=== PATIENT | male | born 1950 | race Caucasian/White ===

== ENCOUNTER → 2018-08-09 09:39 | Outpatient (CLI) | payer MEDICARE, SELFPAY ==
--- NOTE | 2018-08-09 09:40 | DI.US.S_ITS ---
PROCEDURE: US SCROTUM INDICATIONS: scrotal swelling and pain. scrotal cellulitis TECHNIQUE: Real-time scanning was performed of the scrotum and testicles, with image documentation. Color and pulse Doppler interrogation was performed of both testicles. COMPARISON: None. FINDINGS: Right: Testicle is normal in size at upper 6 x 2.2 x 3.3 cm, and homogenous in echotexture. Epididymis is normal in overall size and morphology. No hydrocele or varicoceles. Overlying scrotal skin is normal in thickness. Left: Testicle is normal in size at 4.7 x 1.6 x 2.7 cm, and homogeneous in echotexture. Epididymis is not visualized on this study. Large fluid echogenicity structure is noted in left scrotum elevating left testes anteriorly and measures approximately 11.3 x 5.3 x 7.2 cm in size which could represent large amount of hydrocele versus large spermatocele. Overlying scrotal skin is normal in thickness. Doppler: Color and pulse Doppler demonstrate normal and symmetric arterial flow in both testicles. IMPRESSION: 1. Normal appearing bilateral testes. No evidence of testicular torsion. 2. Large left hydrocele versus spermatocele in left scrotum as above. No significant scrotal wall thickening. No right-sided hydrocele. Dictated by: Aj Lugo M.D. on 08/09/2018 at 11:17 Approved by: Aj Lugo M.D. on 08/09/2018 at 11:21
== END ==
PROVIDERS: PCP Family Medicine; Visit Provider Physician Assistant
DX: N50.89 Other specified disorders of the male genital organs (principal); N49.2 Inflammatory disorders of scrotum
CPT/HCPCS: 76870

== ENCOUNTER → 2018-09-30 07:44 | Outpatient (CLI) | payer MEDICARE, SELFPAY ==
[2018-09-30 08:35] LABS: Alanine Aminotransferase 24 IU/L (21-72); Albumin 4.2 g/dL (3.5-5.0); Albumin Globulin Ratio 1.4 (1.0-2.8); Alkaline Phosphatase 88 U/L (38-126); Aspartate Aminotransferase 20 IU/L (17-59); BUN Creatinine Ratio 14.4 (6-22); Bilirubin Total 0.6 mg/dL (0.2-1.3); Blood Urea Nitrogen 13 mg/dL (9-20); Calcium 9.5 mg/dL (8.4-10.2); Carbon Dioxide 21 mmol/L (22-32); Chloride 105 mmol/L (98-107); Estimated Glomerular Filt Rate > 60.0 mL/min (>60); Glucose 97 mg/dL (80-110); HEMOLYSIS < 15 (0-50); Sodium 140 mmol/L (137-145); Total Protein 7.2 g/dL (6.3-8.2)
== END ==
PROVIDERS: Visit Provider Specialist
DX: E78.5 Hyperlipidemia, unspecified (principal)
CPT/HCPCS: 36415; 80053; 83704

== ENCOUNTER 2019-08-01 13:14 | Emergency (ER) | payer MEDICARE, SELFPAY ==
[2019-08-01 13:17] VITALS: BP 144/97; PULSE 77; RESP 13; TEMP 36.7; O2SAT 100; BMI 22.9
--- NOTE | 2019-08-01 13:24 | DI.RAD.S_ITS ---
PROCEDURE: XR CHEST 1V INDICATIONS: Epigastric/chest pain TECHNIQUE: One view of the chest was acquired. COMPARISON: [facility], CHEST 2 VIEW, 07/28/2007, 11:38. [facility], , CHEST 1 VIEW, 07/06/2015, 15:35. Chest CT 07/21/15, portable chest 07/20/15. FINDINGS: Surgical changes and devices: Sternotomy wires and mediastinal clips are seen. A right lower neck stable can be seen. Lungs and pleura: Lungs are clear. No pleural effusions or pneumothorax. Mediastinum: Mediastinal contours appear normal. Heart size is normal. Bones and chest wall: No suspicious bony lesions. Age-appropriate bony degenerative changes are seen. Overlying soft tissues appear unremarkable. IMPRESSION: Portable chest within normal limits. Postoperative and degenerative changes are seen. Dictated by: Edinson Charles M.D. on 08/01/2019 at 13:02 Approved by: Edinson Charles M.D. on 08/01/2019 at 13:05
[2019-08-01 13:30] VITALS: BP 161/79; PULSE 67; RESP 17; O2SAT 97
[2019-08-01] MEDS: PANTOPRAZOLE 40 MG VIAL IV (13:30)
[2019-08-01] MEDS: MAG HYDROX/ALUMINUM/SIMETH SUS 20 ML, LIDOCAINE VISCOUS 2% 15 ML PO (13:30)
[2019-08-01 13:34] LABS: Add Manual Diff / Slide Review NO; Basophils Absolute Auto 100 /uL (0-100); Basophils Percent Auto 0.7 % (0-2); Eosinophils Absolute Auto 200 /uL (0-450); Eosinophils Percent Auto 1.5 % (2-4); Hematocrit 44.1 % (41-53); Hemoglobin 15.1 g/dL (13.5-17.5); Lymphocytes Absolute Auto 3500 /uL (1100-4500); Lymphocytes Percent Auto 25.7 % (25-40); Mean Corpuscular HGB Conc 34.3 % (30-36); Mean Corpuscular Hemoglobin 29.2 PG (26-34); Mean Corpuscular Volume 85.2 fL (80-100); Monocytes Absolute Auto 800 /uL (0-900); Neutrophils Absolute Auto 9100 /uL (1500-7000); Neutrophils Percent Auto 66.1 % (50-75); Platelet Count 266 X10^3/uL (150-400); Red Blood Cell Count 5.18 X10^6/uL (4.5-5.9); Red Cell Distribution Width 15.6 % (11.6-14.8); White Blood Cell Count 13.8 X10^3/uL (4.5-11.0)
[2019-08-01 13:35] LABS: Prothrombin Time 11.5 SECONDS (10.1-12.7)
[2019-08-01 13:39] LABS: PTT Partial Thromboplastin Tim 31 SECONDS (26.4-36.2)
[2019-08-01 13:40] LABS: Potassium 3.9 mmol/L (3.4-5.1)
--- NOTE | 2019-08-01 13:41 | ED_ITS ---
HPI - Chest Pain <MUSTAPHA Kathleen - Last Filed: 08/01/19 14:43> General Chief Complaint: Chest Pain Stated Complaint: HEARTBURN Time Seen by Provider: 08/01/19 13:20 Source: patient Mode of arrival: ambulatory Limitations: no limitations History of Present Illness HPI narrative: This is a 68-year-old male, smoker, presents to ED with burning discomfort in epigastric area which started yesterday morning. Patient has cardiac history such as SD, several stents, and CABG surgery. Patient reports he had SD his main symptoms were breathing difficulty and does feel different from today's discomfort. Patient denies nausea, vomiting, dizziness, chest pain, breathing difficulty but felt a little sweaty. Patient had taken baking soda mixed in water for the comfort which seemed to help a bit yesterday but he had recurring discomfort today. Patient has been taking prednisone 20 mg b.i.d. dose with Robaxin for last 1 week for sciatica when he was treated at walk-in clinic. Patient reports his sciatica has improved. He reports he has 3 more prednisone doses to take but he had skipped last night dose due to epigastric discomfort. Patient denies history of gastritis or gastric ulcers. Patient takes daily baby aspirin. Related Data Home Medications Medication Instructions Recorded Confirmed lisinopril 5 mg tablet 5 mg PO DAILY 08/09/18 07/27/19 metoprolol tartrate 25 mg tablet 25 mg PO .QD tab 08/09/18 07/27/19 Previous Rx's Medication Instructions Recorded albuterol sulfate 90 mcg/actuation 1 puff INHALATION Q4HP PRN #1 ea 10/20/18 aerosol inhaler methocarbamol 500 mg tablet 500 mg PO BEDTIME #10 tab 07/27/19 prednisone 20 mg tablet 20 mg PO DAILY #14 tab 07/27/19 sucralfate [Carafate] 1 gram PO QAC 14 Days #42 tab MDD 08/01/19 1 hr before meals Allergies Allergy/AdvReac Type Severity Reaction Status Date / Time ibuprofen [IBUPROFEN] Allergy Unknown RASH/TINGLI Verified 08/01/19 13:21 NG Review of Systems <MUSTAPHA Kathleen - Last Filed: 08/01/19 14:43> Review of Systems Narrative: General: Denies fever, chills, fatigue, malaise, sweats. HEENT: Denies sinus pain, ear pain, sore throat, difficulty swallowing, dizziness. Respiratory: Denies dyspnea, cough, wheezing, hemoptysis, sputum. Cardiovascular: See HPI. Denies chest pain, palpitations, orthopnea, edema. Gastrointestinal: See HPI. Denies nausea, vomiting, diarrhea, constipation, melena. : Denies dysuria, frequency, incontinence, hematuria, urinary retention. Musculoskeletal: Denies weakness, joint pain or bony pain. Skin: Denies rash, skin lesions, or other. Neurologic: Denies weakness, headache, numbness, change in speech, confusion, seizures, incoordination. Psychiatric: No concerning psychosocial issues. 12-point review of systems is negative except for those stated above. PFSH <MUSTAPHA Kathleen - Last Filed: 08/01/19 14:43> Surgical History History of heart artery stent (Acute) Hx of CABG (Acute) Social History Smoking Status: Current every day smoker alcohol intake: former Social History Smoking Status: Current every day smoker alcohol intake: former Exam <MUSTAPHA Kathleen - Last Filed: 08/01/19 14:43> Narrative Exam Narrative: GEN: Alert, oriented x 3, well appearing and nourished, and in no acute distress. Head: Normal cephalic, atraumatic. No scalp or temporal tenderness, palpable mass or rash. EYES: Pupils are equal, round, and reactive to light and accommodation. Extraocular muscles are intact bilaterally. There is no subconjunctival hemorrhage, exudate and sclera non-icteric. ENT: Bilateral auditory canals and tympanic membranes clear. Hearing grossly intact. Nose without bleeding, purulent discharge or deviation. Mucous membrane moist, no mucosal lesion. Throat without erythema, tonsillar hypertrophy or exudate. Uvula in midline, airway patent. Neck: Trachea in midline. No JVD, non-tender without lymphadenopathy. No masses or thyroid megaly. Supple, non-tender and no meningeal signs. CARDIAC: Normal regular rate and rhythm without murmurs, gallops, or rubs. No chest wall tenderness. No peripheral edema, cyanosis or pallor. Capillary refill is less than 2 seconds. RESPIRATORY: Mild wheezing in R lobes. No cough, wheezes, rales, or rhonchi. No stridor, respiratory distress, increase work of breathing, or accessary muscle used. ABD: Mild tenderness to palpate in epigastric area. Abdomen soft and non- distended. No guarding or rebound tenderness to palpate. Bowel sounds are n ormal in all 4 quadrants. There is no palpable masses or organomegaly. EXT: Full painless ROM of all extremities with no loss of sensation, strength, effusion or edema. SKIN: Warm, dry, normal color for patient. No erythema, lesions or rash over visible areas. BACK: Nontender without deformity or crepitance. No flank tenderness. NEUROLOGICAL: Alert and oriented to place, time and person. Sensation and motor function intact bilaterally. No facial droops, dysphasia. PSYCHIATRIC: Good judgement and reason, without hallucinations, abnormal affect or abnormal behaviors during the examination. Patient is not suicidal. Initial Vital Signs Initial Vital Signs: Vital Signs Temperature 98.1 F 08/01/19 13:17 Pulse Rate 77 08/01/19 13:17 Respiratory Rate 13 08/01/19 13:17 Blood Pressure 144/97 H 08/01/19 13:17 Pulse Oximetry 100 08/01/19 13:17 <Pasha Olea DO - Last Filed: 08/01/19 15:15> Initial Vital Signs Initial Vital Signs: Vital Signs Temperature 98.1 F 08/01/19 13:17 Pulse Rate 77 08/01/19 13:17 Respiratory Rate 13 08/01/19 13:17 Blood Pressure 144/97 H 08/01/19 13:17 Pulse Oximetry 100 08/01/19 13:17 Scores <MUSTAPHA Kathleen - Last Filed: 08/01/19 14:43> GCS [place] coma scale eye opening: Spontaneous Nicolas coma scale verbal response: Orientated [place] coma scale motor response: Obey commands Nicolas coma scale total score: 15 Course <MUSTAPHA Kathleen - Last Filed: 08/01/19 14:43> Orders Ordered: ED Orders 08/01/19 13:16 EKG-12 Lead Stat 08/01/19 13:21 Complete Blood Count AUTO DIFF Stat Comprehensive Metabolic Panel Stat Lipase Stat Partial Thromboplastin Time Stat Prothrombin Time INR Stat Troponin I Stat 08/01/19 13:24 XR chest 1V Stat Discontinued Medications Al Hydrox/Mg Hydrox/Simethicone 20 ml/ Lidocaine HCl 15 ml 0 ml PO NOW ONE Stop: 08/01/19 13:24 Last Admin: 08/01/19 13:30 Dose: 35 ml Documented by: LISSETT Pantoprazole Sodium (Protonix) 40 mg IV NOW ONE Stop: 08/01/19 13:24 Last Admin: 08/01/19 13:30 Dose: 40 mg Documented by: LISSETT Vital Signs Vital signs: Vital Signs - 8 hr 08/01/19 13:17 08/01/19 13:30 08/01/19 14:00 Temperature 98.1 F Pulse Rate 77 67 66 Respiratory Rate 13 17 12 Blood Pressure 144/97 H Blood Pressure [Left Arm] 161/79 H 142/85 H Pulse Oximetry 100 97 98 08/01/19 14:30 Temperature Pulse Rate 65 Respiratory Rate 13 Blood Pressure Blood Pressure [Left Arm] 147/83 H Pulse Oximetry 100 <Pasha Olea DO - Last Filed: 08/01/19 15:15> Orders Ordered: ED Orders 08/01/19 13:16 EKG-12 Lead Stat 08/01/19 13:21 Complete Blood Count AUTO DIFF Stat Comprehensive Metabolic Panel Stat Lipase Stat Partial Thromboplastin Time Stat Prothrombin Time INR Stat Troponin I Stat 08/01/19 13:24 XR chest 1V Stat Discontinued Medications Al Hydrox/Mg Hydrox/Simethicone 20 ml/ Lidocaine HCl 15 ml 0 ml PO NOW ONE Stop: 08/01/19 13:24 Last Admin: 08/01/19 13:30 Dose: 35 ml Documented by: LISSETT Pantoprazole Sodium (Protonix) 40 mg IV NOW ONE Stop: 08/01/19 13:24 Last Admin: 08/01/19 13:30 Dose: 40 mg Documented by: LISSETT Vital Signs Vital signs: Vital Signs - 8 hr 08/01/19 13:17 08/01/19 13:30 08/01/19 14:00 Temperature 98.1 F Pulse Rate 77 67 66 Respiratory Rate 13 17 12 Blood Pressure 144/97 H Blood Pressure [Left Arm] 161/79 H 142/85 H Pulse Oximetry 100 97 98 08/01/19 14:30 Temperature Pulse Rate 65 Respiratory Rate 13 Blood Pressure Blood Pressure [Left Arm] 147/83 H Pulse Oximetry 100 MDM - Chest Pain <Marcelo MartínezAnuelSusanMUSTAPHA - Last Filed: 08/01/19 14:43> Differential Diagnosis Differential diagnosis: Likely atypical chest pain, costochondritis and other (gastritis) Medical Records Data Attestation: I reviewed the patient's medical records. Lab Data Attestation: I reviewed the patient's lab results. Result diagrams: 08/01/19 13:21 08/01/19 13:21 Labs: Lab Results 08/01/19 08/01/19 08/01/19 Range/Units 13:21 13:21 13:21 WBC 13.8 H (4.5-11.0) X10^3/uL RBC 5.18 (4.5-5.9) X10^6/uL Hgb 15.1 (13.5-17.5) g/dL Hct 44.1 (41-53) % MCV 85.2 (80-100) fL MCH 29.2 (26-34) PG MCHC 34.3 (30-36) % RDW 15.6 H (11.6-14.8) % Plt Count 266 (150-400) X10^3/uL Neut % (Auto) 66.1 (50-75) % Lymph % (Auto) 25.7 (25-40) % Camp % (Auto) 6.0 (3-14) % Eos % (Auto) 1.5 L (2-4) % Baso % (Auto) 0.7 (0-2) % Neut # (Auto) 9100 H (4952-5083) /uL Lymph # (Auto) 3500 (6847-0158) /uL Camp # (Auto) 800 (0-900) /uL Eos # (Auto) 200 (0-450) /uL Baso # (Auto) 100 (0-100) /uL PT (10.1-12.7) SECONDS INR (0.9-1.3) APTT 31 (26.4-36.2) SECONDS Sodium 138 (137-145) mmol/L Potassium 3.9 (3.4-5.1) mmol/L Chloride 101 (98-107) mmol/L Carbon Dioxide 26 (22-32) mmol/L BUN 18 (9-20) mg/dL Creatinine 0.80 (0.66-1.25) mg/dL Estimated GFR > 60.0 (>60) mL/min BUN/Creatinine Ratio 22.5 H (6-22) Glucose 130 H (80-110) mg/dL Calcium 9.5 (8.4-10.2) mg/dL Total Bilirubin 0.5 (0.2-1.3) mg/dL AST 28 (17-59) IU/L ALT 33 (21-72) IU/L Alkaline Phosphatase 83 (38-126) U/L Troponin I (0.01-0.034) ng/mL Total Protein 7.3 (6.3-8.2) g/dL Albumin 4.0 (3.5-5.0) g/dL Globulin 3.3 (1.7-4.1) g/dL Albumin/Globulin Ratio 1.2 (1.0-2.8) Lipase 42 (23-300) U/L 08/01/19 08/01/19 Range/Units 13:21 13:21 WBC (4.5-11.0) X10^3/uL RBC (4.5-5.9) X10^6/uL Hgb (13.5-17.5) g/dL Hct (41-53) % MCV (80-100) fL MCH (26-34) PG MCHC (30-36) % RDW (11.6-14.8) % Plt Count (150-400) X10^3/uL Neut % (Auto) (50-75) % Lymph % (Auto) (25-40) % Camp % (Auto) (3-14) % Eos % (Auto) (2-4) % Baso % (Auto) (0-2) % Neut # (Auto) (4258-5270) /uL Lymph # (Auto) (6760-4421) /uL Camp # (Auto) (0-900) /uL Eos # (Auto) (0-450) /uL Baso # (Auto) (0-100) /uL PT 11.5 (10.1-12.7) SECONDS INR 1.0 (0.9-1.3) APTT (26.4-36.2) SECONDS Sodium (137-145) mmol/L Potassium (3.4-5.1) mmol/L Chloride (98-107) mmol/L Carbon Dioxide (22-32) mmol/L BUN (9-20) mg/dL Creatinine (0.66-1.25) mg/dL Estimated GFR (>60) mL/min BUN/Creatinine Ratio (6-22) Glucose (80-110) mg/dL Calcium (8.4-10.2) mg/dL Total Bilirubin (0.2-1.3) mg/dL AST (17-59) IU/L ALT (21-72) IU/L Alkaline Phosphatase (38-126) U/L Troponin I < 0.012 (0.01-0.034) ng/mL Total Protein (6.3-8.2) g/dL Albumin (3.5-5.0) g/dL Globulin (1.7-4.1) g/dL Albumin/Globulin Ratio (1.0-2.8) Lipase (23-300) U/L Imaging Data Chest x-ray: Radiologist's impression: [address] [address] XRay Report Signed Patient: Estiven Dean R#: [id number] : 2Acct:[id number] Age/Sex: 68 / MDate of Service: 08/01/19 Loc: ED Accession Number: [id number] Procedure: XR chest 1V Ordering Provider: Pasha Olea D.O. PROCEDURE: XR CHEST 1V INDICATIONS: Epigastric/chest pain TECHNIQUE: One view of the chest was acquired. COMPARISON: [facility], CHEST 2 VIEW, 07/28/2007, 11:38. [facility], CHEST 1 VIEW, 07/06/2015, 15:35. Chest CT 07/21/15, portable chest 07/20/15. FINDINGS: Surgical changes and devices: Sternotomy wires and mediastinal clips are seen. A right lower neck stable can be seen. Lungs and pleura: Lungs are clear. No pleural effusions or pneumothorax. Mediastinum: Mediastinal contours appear normal. Heart size is normal. Bones and chest wall: No suspicious bony lesions. Age-appropriate bony degenerative changes are seen. Overlying soft tissues appear unremarkable. IMPRESSION: Portable chest within normal limits. Postoperative and degenerative changes are seen. Dictated by: Edinson Charles M.D. on 08/01/2019 at 13:02 Approved by: Edinson Charles M.D. on 08/01/2019 at 13:05 ECG Data Attestation: I personally reviewed and interpreted this ECG as follows: Prior ECG tracings: available for review Interpretation: Sinus rhythm rate in 77. Normal [place] Imcomplete RBB-terminal R in V1 and V2 Previous EKG with SR witih ST depression in 2015 MDM Narrative Medical decision making narrative: The patient presents to ED with burning discomfort in epigastric area for last 36 hours. Patient has been taking prednisone 20 mg b.i.d. for sciatica pain for last 7 days. Patient had taken baking soda water at home with some relief. Patient has cardiac history with stents and CABG. EKG is without ST elevation or depression and in sinus rhythm. Patient's lab tests and x-ray test were unremarkable including negative troponin and lipase. Patient takes daily baby aspirin at home and follows with kitchen bath designer Dr. Camacho. Patient reports his discomfort has decreased significantly to 1/10 after medicated in ED. The findings and return precauti ons were discussed with patient. Patient was advised to follow up with Dr. Camacho as scheduled. Patient was discharged to home with Carafate for gastritis since his symptoms appears to be related to prednisone. Patient verbalized the understanding and agrees with treatment plan. <Pasha Olea, - Last Filed: 08/01/19 15:15> Lab Data Labs: Lab Results 08/01/19 08/01/19 08/01/19 Range/Units 13:21 13:21 13:21 WBC 13.8 H (4.5-11.0) X10^3/uL RBC 5.18 (4.5-5.9) X10^6/uL Hgb 15.1 (13.5-17.5) g/dL Hct 44.1 (41-53) % MCV 85.2 (80-100) fL MCH 29.2 (26-34) PG MCHC 34.3 (30-36) % RDW 15.6 H (11.6-14.8) % Plt Count 266 (150-400) X10^3/uL Neut % (Auto) 66.1 (50-75) % Lymph % (Auto) 25.7 (25-40) % Camp % (Auto) 6.0 (3-14) % Eos % (Auto) 1.5 L (2-4) % Baso % (Auto) 0.7 (0-2) % Neut # (Auto) 9100 H (9511-3618) /uL Lymph # (Auto) 3500 (1684-5775) /uL Camp # (Auto) 800 (0-900) /uL Eos # (Auto) 200 (0-450) /uL Baso # (Auto) 100 (0-100) /uL PT (10.1-12.7) SECONDS INR (0.9-1.3) APTT 31 (26.4-36.2) SECONDS Sodium 138 (137-145) mmol/L Potassium 3.9 (3.4-5.1) mmol/L Chloride 101 (98-107) mmol/L Carbon Dioxide 26 (22-32) mmol/L BUN 18 (9-20) mg/dL Creatinine 0.80 (0.66-1.25) mg/dL Estimated GFR > 60.0 (>60) mL/min BUN/Creatinine Ratio 22.5 H (6-22) Glucose 130 H (80-110) mg/dL Calcium 9.5 (8.4-10.2) mg/dL Total Bilirubin 0.5 (0.2-1.3) mg/dL AST 28 (17-59) IU/L ALT 33 (21-72) IU/L Alkaline Phosphatase 83 (38-126) U/L Troponin I (0.01-0.034) ng/mL Total Protein 7.3 (6.3-8.2) g/dL Albumin 4.0 (3.5-5.0) g/dL Globulin 3.3 (1.7-4.1) g/dL Albumin/Globulin Ratio 1.2 (1.0-2.8) Lipase 42 (23-300) U/L 08/01/19 08/01/19 Range/Units 13:21 13:21 WBC (4.5-11.0) X10^3/uL RBC (4.5-5.9) X10^6/uL Hgb (13.5-17.5) g/dL Hct (41-53) % MCV (80-100) fL MCH (26-34) PG MCHC (30-36) % RDW (11.6-14.8) % Plt Count (150-400) X10^3/uL Neut % (Auto) (50-75) % Lymph % (Auto) (25-40) % Camp % (Auto) (3-14) % Eos % (Auto) (2-4) % Baso % (Auto) (0-2) % Neut # (Auto) (8387-8210) /uL Lymph # (Auto) (1195-1069) /uL Camp # (Auto) (0-900) /uL Eos # (Auto) (0-450) /uL Baso # (Auto) (0-100) /uL PT 11.5 (10.1-12.7) SECONDS INR 1.0 (0.9-1.3) APTT (26.4-36.2) SECONDS Sodium (137-145) mmol/L Potassium (3.4-5.1) mmol/L Chloride (98-107) mmol/L Carbon Dioxide (22-32) mmol/L BUN (9-20) mg/dL Creatinine (0.66-1.25) mg/dL Estimated GFR (>60) mL/min BUN/Creatinine Ratio (6-22) Glucose (80-110) mg/dL Calcium (8.4-10.2) mg/dL Total Bilirubin (0.2-1.3) mg/dL AST (17-59) IU/L ALT (21-72) IU/L Alkaline Phosphatase (38-126) U/L Troponin I < 0.012 (0.01-0.034) ng/mL Total Protein (6.3-8.2) g/dL Albumin (3.5-5.0) g/dL Globulin (1.7-4.1) g/dL Albumin/Globulin Ratio (1.0-2.8) Lipase (23-300) U/L Discharge Plan Departure Patient Disposition: Home Clinical Impression: Gastritis Qualifiers: Gastritis type: unspecified gastritis Chronicity: acute Gastritis bleeding: presence of bleeding unspecified Qualified Code(s): K29.00 - Acute gastritis without bleeding Discharge Date/Time: 08/01/19 14:49 Instructions: DI for Gastritis Activity Restrictions/Additional Instructions: You have been diagnosed with [gastritis possibly from taking prednisone. The blood tests and x-ray test results are unremarkable.]. What to do: *Take your medications as directed. Sucrafate has been transmitted to [facility]. Please take this medication 1 hour prior to meals or taking her medication. *Follow up with your primary care provider in 2-3 days, call for an appointment. Let them know you were seen in the ED and that we asked you to be seen in follow up. *Return to ED if you have any new, worsening, or concerning symptoms, such as [chest pain, breathing difficulty, nausea/vomiting, unable to tolerate fluids, abdominal pain, blood in your stool or vomit, or any acute concerns]. Prescriptions: New sucralfate [Carafate] 1 gram tablet 1 gram PO QAC MDD 1 hr before meals 14 Days Qty: 42 RF: 0 No Action metoprolol tartrate 25 mg tablet 25 mg PO .QD RF: 0 lisinopril 5 mg tablet 5 mg PO DAILY RF: 0 prednisone 20 mg tablet 20 mg PO DAILY Qty: 14 RF: 0 methocarbamol 500 mg tablet 500 mg PO BEDTIME Qty: 10 RF: 0 albuterol sulfate [Ventolin HFA] 90 mcg/actuation HFA aerosol inhaler 1 puff INHALATION Q4HP PRN (Reason: shortness of breath or wheezing) Qty: 1 RF: 11 Referrals: [facility] [Outside] Dk Groves MD [Primary Care Provider] - <Pasha Olea DO - Last Filed: 08/01/19 15:15> Sign Out Provider Sign Out Attestation: I was available for consultation during this patient's emergency department encounter
[2019-08-01 13:43] LABS: Alanine Aminotransferase 33 IU/L (21-72); Albumin Globulin Ratio 1.2 (1.0-2.8); Alkaline Phosphatase 83 U/L (38-126); Aspartate Aminotransferase 28 IU/L (17-59); BUN Creatinine Ratio 22.5 (6-22); Bilirubin Total 0.5 mg/dL (0.2-1.3); Blood Urea Nitrogen 18 mg/dL (9-20); Calcium 9.5 mg/dL (8.4-10.2); Carbon Dioxide 26 mmol/L (22-32); Chloride 101 mmol/L (98-107); Estimated Glomerular Filt Rate > 60.0 mL/min (>60); Globulin 3.3 g/dL (1.7-4.1); Glucose 130 mg/dL (80-110); HEMOLYSIS 22 (0-50); Lipase 42 U/L (23-300); Sodium 138 mmol/L (137-145); Total Protein 7.3 g/dL (6.3-8.2)
[2019-08-01 13:55] LABS: Troponin I < 0.012 ng/mL (0.01-0.034)
[2019-08-01 14:00] VITALS: BP 142/85; PULSE 66; RESP 12; O2SAT 98
[2019-08-01 14:30] VITALS: BP 147/83; PULSE 65; RESP 13; O2SAT 100
== END 2019-08-01 14:49 | disposition home or self-care (01) ==
PROVIDERS: Emergency Medicine; Emergency Provider Nurse Practitioner Family; PCP Family Medicine
DX: K29.00 Acute gastritis without bleeding (principal)
CPT/HCPCS: 36415; 36591; 71045; 80053; 83690; 84484; 85025; 85610; 85730; 93005; 96374; 99283; 99285; C9113

== ENCOUNTER 2019-09-19 10:11 | Emergency (ER) | payer MEDICARE, SELFPAY ==
[2019-09-19 10:14] VITALS: BP 160/92; PULSE 88; RESP 14; TEMP 36.7; O2SAT 100
--- NOTE | 2019-09-19 10:49 | ED.GENADULT ---
HPI - General Adult General Chief complaint: Abdominal Pain Stated complaint: Constipation Time Seen by Provider: 09/19/19 10:39 Source: patient and EMS Mode of arrival: EMS Limitations: no limitations History of Present Illness HPI narrative: 68-year-old male brought in by EMS this morning for constipation issues. Patient states that for the past several weeks if not past several months he has had hard stools. Has not had to use enemas in the past. States that this morning he got up to try to use the restroom and could not. Stated that he waited until the drugstore open when he went and bought a enema. He then went home and used it however it was unsuccessful. He did state that this morning he developed a hemorrhoid. He also states that he has having problems urinating. He also states that for the past several years he has had urinary urgency and frequency. No prior abdominal surgeries. Related Data Home Medications Medication Instructions Recorded Confirmed lisinopril 2.5 mg PO DAILY 09/19/19 09/19/19 metoprolol succinate 25 mg PO DAILY 09/19/19 09/19/19 rosuvastatin 20 mg PO DAILY 09/19/19 09/19/19 Previous Rx's Medication Instructions Recorded albuterol sulfate 90 mcg/actuation 1 puff INHALATION Q4HP PRN #1 ea 10/20/18 aerosol inhaler methocarbamol 500 mg tablet 500 mg PO BEDTIME #10 tab 07/27/19 Allergies Allergy/AdvReac Type Severity Reaction Status Date / Time ibuprofen [IBUPROFEN] Allergy Unknown RASH/TINGLI Verified 08/01/19 13:21 NG Review of Systems Constitutional Constitutional: Denies fever(s) Cardiovascular Cardiovascular: Denies chest pain and Denies dyspnea Respiratory Respiratory: Denies dyspnea Gastrointestinal Gastrointestinal: Reports abdominal pain, Reports constipation and Reports nausea Comments: Hemorrhoid Genitourinary Genitourinary: Denies dysuria, Reports urinary frequency, Reports urinary hesitancy and Reports urinary urgency Musculoskeletal Musculoskeletal: Denies myalgias and Denies arthralgias Integumentary/Breasts Skin/Breast: Denies rash Neurologic Neurologic: Denies behavioral changes Psychiatric Psychiatric: Denies behavioral changes Hematologic/Lymphatic Hematologic/Lymphatic: Denies easy bleeding and Denies easy bruising Patient History Medical History Chronic obstructive pulmonary disease (12/28/15) Congestive heart failure (12/28/15) Coronary artery disease involving [place] coronary artery of [place] heart without angina pectoris (12/28/15) Essential hypertension (12/28/15) Mixed hyperlipidemia (12/28/15) Surgical History History of heart artery stent (Acute) Hx of CABG (Acute) Social History Smoking Status: Current every day smoker alcohol intake: former tobacco type: cigarettes alcohol intake frequency: 0-2 drinks per day Substance Use Type: does not use Exam Initial Vital Signs Initial Vital Signs: Vital Signs Temperature 98.1 F 09/19/19 10:14 Pulse Rate 88 09/19/19 10:14 Respiratory Rate 14 09/19/19 10:14 Blood Pressure 160/92 H 09/19/19 10:14 Pulse Oximetry 100 09/19/19 10:14 Const General: cooperative, well developed and well groomed Orientation: alert, awake and oriented x3 HENMT Head: normal to inspection and normocephalic Resp Effort & Inspection: normal respiratory effort Auscultation: clear to auscultation bilaterally Cardio Rate: regular rate Rhythm: regular rhythm GI Inspection: non-distended Palpation: soft and No firm Other: Stool felt in the rectal vault. Patient with 1 thrombosed external hemorrhoid Skin Lesions: no lesions Rashes: no rashes Neuro General: alert, awake and oriented x3 Cognition: normal cognition Speech: speech normal Extrem General: normal to inspection and capillary refill normal Psych Appearance: grossly normal and well kempt Course Orders Ordered: Discontinued Medications Lidocaine HCl (Urojet) 5 ml TOP NOW ONE Stop: 09/19/19 10:57 Last Admin: 09/19/19 11:02 Dose: 5 ml Documented by: KACIE Sodium Biphosphate/Sodium Phosphate (Fleet Enema) 1 each [place] NOW ONE Stop: 09/19/19 10:49 Vital Signs Vital signs: Vital Signs - 8 hr 09/19/19 10:14 09/19/19 11:02 Temperature 98.1 F Pulse Rate 88 80 Respiratory Rate 14 18 Blood Pressure 160/92 H Blood Pressure [Left Arm] 160/92 H Pulse Oximetry 100 100 Medical Decision Making MDM Narrative Medical decision making narrative: With lidocaine jelly nursing staff was able to manually disimpact stool from the patient's rectum. He states he feels much better after this. He does have what appears to be acute thrombosed hemorrhoid. He did have 500 cc of urine removed from Diego catheter. Sounds like he has had urinary issues in the past. After discussion about the risks and benefits of leaving the catheter in to include potentially having a return of the urinary retention he did opt to have the catheter removed here in the ER. We did discuss the use of enemas and oral laxatives to help with his constipation. I do have a low suspicion of this is a bowel obstruction. Patient was given return precautions and follow-up instructions. He expressed understanding and agreement with plan. Discharge Plan Departure Patient Disposition: Home Clinical Impression: Acute urinary retention Constipation Qualifiers: Constipation type: unspecified constipation type Qualified Code(s): K59.00 - Constipation, unspecified Hemorrhoid Qualifiers: Hemorrhoid type: other Qualified Code(s): K64.8 - Other hemorrhoids Instructions: Hemorrhoids (Alternative Therapy), Hemorrhoids, Constipation, DI for Urinary Retention in Men Activity Restrictions/Additional Instructions: You can purchase [id number] laxatives and also suppositories. Use them as directed. You can also purchase [id number] Preparation-H and tucks pads to help with the hemorrhoid. After a discussion you did opt to have the catheter removed. If you start to have urinary retention again or lower abdominal pain or problems urinating please return to the emergency department. Also recommend that you contact [phone] to help you establish a primary provider here in the area. Prescriptions: No Action methocarbamol 500 mg tablet 500 mg PO BEDTIME Qty: 10 RF: 0 albuterol sulfate [Ventolin HFA] 90 mcg/actuation HFA aerosol inhaler 1 puff INHALATION Q4HP PRN (Reason: shortness of breath or wheezing) Qty: 1 RF: 11 metoprolol succinate 25 mg tablet extended release 24 hr 25 mg PO DAILY RF: 0 lisinopril 2.5 mg tablet 2.5 mg PO DAILY RF: 0 rosuvastatin 20 mg tablet 20 mg PO DAILY RF: 0 Referrals: Dk Groves MD [Primary Care Provider] -
[2019-09-19 11:02] VITALS: BP 160/92; PULSE 80; RESP 18; O2SAT 100
[2019-09-19] MEDS: LIDOCAINE 2% (UROJET) 5 ML GEL TOP (11:02)
--- NOTE | 2019-09-19 11:21 | PC.NURSE ---
Diego placed r/t pt inability to void. Tolerated well. 525 cc output noted. Lidocaine jelly urojet to hemroids / rectum area for pain control then disimpacted for large amount of hard stool. Pt is now trying to move bowels on commode, would like to wait on 2nd enema.
--- NOTE | 2019-09-19 11:34 | PC.NURSE ---
Pt attempted to move bowels on commode however unable to. Offered enema ordered, pt states he does not want it, would rather take something orally. Dr. Olea aware and will discuss w/ pt. Continues to have no abd pain, no nausea / vomiting.
[2019-09-19 12:00] VITALS: BP 148/70; PULSE 78; RESP 17; O2SAT 98
--- NOTE | 2019-09-19 12:21 | PC.NURSE ---
Pt declined enema, had moderate bm in ED. Opted to have catheter out. + void post removal. Encouraged to return for any needs or concerns, worsening of symptoms.
== END 2019-09-19 12:24 | disposition home or self-care (01) ==
PROVIDERS: Emergency Provider Emergency Medicine; PCP Family Medicine
DX: R33.9 Retention of urine, unspecified (principal); K59.00 Constipation, unspecified; K64.8 Other hemorrhoids
CPT/HCPCS: 51701; 51798; 99283

== ENCOUNTER → 2019-11-08 07:50 | Outpatient (CLI) | payer MEDICARE, SELFPAY ==
[2019-11-08 08:45] LABS: Alanine Aminotransferase 21 IU/L (<50); Albumin 4.3 g/dL (3.5-5.0); Albumin Globulin Ratio 1.4 (1.0-2.8); Alkaline Phosphatase 102 U/L (38-126); Aspartate Aminotransferase 24 IU/L (17-59); Bilirubin Total 0.7 mg/dL (0.2-1.3); Blood Urea Nitrogen 18 mg/dL (9-20); Carbon Dioxide 24 mmol/L (22-32); Chloride 101 mmol/L (98-107); Estimated Glomerular Filt Rate > 60.0 mL/min (>60); Globulin 3.1 g/dL (1.7-4.1); Glucose 99 mg/dL (80-110); HEMOLYSIS < 15 (0-50); Potassium 4.3 mmol/L (3.4-5.1); Sodium 136 mmol/L (137-145); Total Protein 7.4 g/dL (6.3-8.2)
[2019-11-10 08:42] LABS: Lipoprofile NMR SEE SEPERATE REPORT
== END ==
PROVIDERS: PCP Nurse Practitioner; Visit Provider Specialist
DX: E78.2 Mixed hyperlipidemia (principal)
CPT/HCPCS: 36415; 80053; 83704

== ENCOUNTER → 2019-11-15 13:41 | Outpatient (CLI) | payer MEDICARE, SELFPAY ==
--- NOTE | 2019-11-15 | DI.US.S_ITS ---
PROCEDURE: US CAROTID DOPPLER BI INDICATIONS: BILATERAL STENOSIS TECHNIQUE: Color and pulse Doppler interrogation was performed of both carotid systems, with image documentation and velocity measurements. COMPARISON: Merged With [facility], CT, CT ANGIO CHEST PE, 07/21/2015, 4:36. [facility], [place], CAROTID ARTERY DOPPLER BILAT, 04/21/2016, 11:02. FINDINGS: Stenosis calculations are based on SRU (Society of Radiologists in Ultrasound) criteria. Right side: Brachial blood pressure: 129/68 mm Hg. Common carotid artery peak systolic velocity: 123 cm/sec. Internal carotid artery peak systolic velocity: 09 cm/sec. Internal carotid artery end diastolic velocity: 31 cm/sec. External carotid artery peak systolic velocity: 66 cm/sec. ICA/CCA peak systolic ratio: 0.9. Lawrence scale imaging description: Calcified and soft plaques in distal common carotid artery and carotid bifurcation Percent internal carotid artery stenosis: Less than 50% and unchanged. Vertebral artery: Flow direction is antegrade. Left side: Brachial blood pressure: 105/70 mm Hg. Common carotid artery peak systolic velocity: 98 cm/sec. Internal carotid artery peak systolic velocity: 226 cm/sec. Internal carotid artery end diastolic velocity: 56 cm/sec. External carotid artery peak systolic velocity: 110 cm/sec. ICA/CCA peak systolic ratio: 2.3. Lawrence scale imaging description: Calcified plaques in distal common carotid artery and carotid bifurcation Percent internal carotid artery stenosis: 50-skin and percent and unchanged. Vertebral artery: Flow direction is antegrade. IMPRESSION: Stable examination. 1. 50-69% left internal carotid artery stenosis (closer to 69%). 2. Less than 50% right internal carotid artery stenosis. 3. Antegrade vertebral artery flow bilaterally. Dictated by: Chaparrita Stewart M.D. on 11/15/2019 at 15:05 Approved by: Chaparrita Stewart M.D. on 11/15/2019 at 15:11
== END ==
PROVIDERS: PCP Nurse Practitioner; Visit Provider Specialist
DX: I65.23 Occlusion and stenosis of bilateral carotid arteries (principal)
CPT/HCPCS: 93880

== ENCOUNTER → 2020-01-25 13:38 | Outpatient (CLI) | payer MEDICARE, SELFPAY ==
--- NOTE | 2020-01-25 13:40 | DI.RAD.S_ITS ---
PROCEDURE: XR LUMBAR SPINE 2-3V INDICATIONS: Back pain TECHNIQUE: 3 views of the lumbar spine were acquired. COMPARISON: None. FINDINGS: Bones: 5 [id number] vertebrae are present. There is normal bony alignment. No vertebral body compression fractures. No suspicious bony lesions. There is mild to moderate degenerative disc disease along the lumbosacral spine best seen over the upper half of the LS-spine, without evidence of subluxation or prior trauma. Soft tissues: Overlying bowel gas pattern is normal. No suspicious soft tissue calcifications. IMPRESSION: Mild to moderate degenerative disc disease as discussed without subluxation or trauma. Spinal or foraminal stenosis is not found. Dictated by: Edvin Camilo M.D. on 01/25/2020 at 14:12 Approved by: Edvin Camilo M.D. on 01/25/2020 at 14:13
== END ==
PROVIDERS: PCP Student in an Organized Health Care Education/Training Program; Referring Provider Student in an Organized Health Care Education/Training Program; Visit Provider Student in an Organized Health Care Education/Training Program
DX: M54.9 Dorsalgia, unspecified (principal); M51.17 Intervertebral disc disorders with radiculopathy, lumbosacral region
CPT/HCPCS: 72100

== ENCOUNTER → 2020-02-02 08:46 | Outpatient (CLI) | payer MEDICARE, SELFPAY ==
--- NOTE | 2020-02-02 08:48 | DI.US.S_ITS ---
PROCEDURE: US ABD AORTA ANEURYSM SCREEN INDICATIONS: SMOKER TECHNIQUE: Real time scanning was performed of the aorta and iliac arteries, with image documentation. COMPARISON: None. FINDINGS: Aorta: Proximal aortic diameter measures 2.5 cm. Mid-aorta measures 2.2 cm. Distal aortic diameter is 2.9 cm anterior posterior by 3.1 cm transversely. Iliac arteries: Right common iliac artery measures 0.7 cm. Left common iliac artery measures 0.7 cm. IMPRESSION: 3.1 cm distal abdominal aortic aneurysm. 3 year followup ultrasound recommended. Dictated by: Levar GUY Interpreted: Tiffanie Whitney MD on 02/02/2020 at 9:56 Approved by: Tiffanie Whitney M.D. on 02/02/2020 at 13:36
== END ==
PROVIDERS: PCP Student in an Organized Health Care Education/Training Program; Referring Provider Student in an Organized Health Care Education/Training Program; Visit Provider Student in an Organized Health Care Education/Training Program
DX: Z13.6 Encounter for screening for cardiovascular disorders (principal); I71.4 Abdominal aortic aneurysm, without rupture; F17.200 Nicotine dependence, unspecified, uncomplicated
CPT/HCPCS: 76706

== ENCOUNTER → 2020-02-07 07:33 | Outpatient (CLI) | payer MEDICARE, SELFPAY ==
--- NOTE | 2020-02-07 07:35 | DI.RAD.S_ITS ---
PROCEDURE: FL BARIUM SWALLOW INDICATIONS: dysphagia COMPARISON: None. FINDINGS: There is delayed clearance of contrast material from the esophagus due to severe narrowing just above, and at the level of the GE junction IMPRESSION: Severe esophageal narrowing in the region of the distal esophagus/GE junction. This is suspicious for malignant stricture and recommend further evaluation with upper endoscopy. Associated markedly delayed clearance of contrast material from the esophagus Dictated by: Christophe Mukherjee M.D. on 02/07/2020 at 9:56 Approved by: Christophe Mukherjee M.D. on 02/07/2020 at 9:59
== END ==
PROVIDERS: PCP Student in an Organized Health Care Education/Training Program; Referring Provider Student in an Organized Health Care Education/Training Program; Visit Provider Student in an Organized Health Care Education/Training Program
DX: R13.10 Dysphagia, unspecified (principal); K22.2 Esophageal obstruction
CPT/HCPCS: 74220

== ENCOUNTER 2020-03-21 21:29 | Emergency (ER) | payer MEDICARE, SELFPAY ==
[2020-03-21 21:39] VITALS: BP 143/69; PULSE 85; RESP 20; TEMP 36.1; O2SAT 98; BMI 22.9
--- NOTE | 2020-03-21 21:54 | ED.GENADULT ---
HPI - General Adult General Chief complaint: Abdominal Pain Stated complaint: leaking feeding tube Time Seen by Provider: 03/21/20 21:33 Source: patient Mode of arrival: Family Vehicle Limitations: no limitations History of Present Illness HPI narrative: Patient is a 69-year-old male. 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 Underwent chemotherapy this morning. Has been using the G-tube without problems. He states that since it was placed he has had some drainage over the past 12 hours he has noticed that the drainage has been increasing and is turn from a dark material into a light green material. He does have some redness around the stoma. Has had to change the bandage on a regular basis because of the drainage. He does not feel that it is the tube that is draining but around the tube. Has some tenderness on the skin where it is red. No fevers. Related Data Home Medications Medication Instructions Recorded Confirmed lisinopril 2.5 mg PO DAILY 09/19/19 02/01/20 metoprolol succinate 25 mg PO DAILY 09/19/19 02/01/20 rosuvastatin 20 mg PO DAILY 09/19/19 02/01/20 Previous Rx's Medication Instructions Recorded food supplemt, lactose-reduced 1 each PO TID #90 each 02/01/20 pantoprazole 40 mg tablet,delayed 40 mg PO DAILY #30 tab 02/21/20 release gabapentin 300 mg capsule 300 mg PO TID #90 cap 03/19/20 Allergies Allergy/AdvReac Type Severity Reaction Status Date / Time ibuprofen [IBUPROFEN] Allergy Unknown RASH/TINGLI Verified 02/01/20 10:31 NG Review of Systems Constitutional Constitutional: Denies fever(s) Cardiovascular Cardiovascular: Denies chest pain Respiratory Respiratory: Denies cough Gastrointestinal Comments: Drainage around the G-tube Integumentary/Breasts Comments: Redness around the G-tube ostomy Hematologic/Lymphatic Hematologic/Lymphatic: Denies easy bleeding and Denies easy bruising Patient History Medical History Chronic obstructive pulmonary disease (12/28/15) Congestive heart failure (12/28/15) Coronary artery disease involving [place] coronary artery of [place] heart without angina pectoris (12/28/15) Difficulty swallowing (Chronic) Essential hypertension (Chronic 12/28/15) GERD (gastroesophageal reflux disease) (Chronic) Hydrocele (Resolved) Mixed hyperlipidemia (12/28/15) Surgical History History of heart artery stent (Acute) Hx of CABG (Acute) Social History Smoking Status: Current every day smoker alcohol intake: former Smoking Status: Current every day smoker tobacco type: cigarettes alcohol intake frequency: 0-2 drinks per day Substance Use Type: marijuana Exam Initial Vital Signs Initial Vital Signs: Vital Signs Temperature 97 F L 03/21/20 21:39 Pulse Rate 85 03/21/20 21:39 Respiratory Rate 20 03/21/20 21:39 Blood Pressure 143/69 H 03/21/20 21:39 Pulse Oximetry 98 03/21/20 21:39 Const General: cooperative, comfortable and well developed Limitations: mental status not altered HENMT Head: normal to inspection and normocephalic GI Inspection: non-distended Palpation: soft and No firm Other: G-tube in place in the left upper quadrant. Skin Other: Redness around the G-tube site. Neuro General: alert and awake Cognition: normal cognition Speech: speech normal Extrem General: normal to inspection and capillary refill normal Course Vital Signs Vital signs: Vital Signs - 8 hr 03/21/20 21:39 03/21/20 22:03 Temperature 97 F L Pulse Rate 85 71 Respiratory Rate 20 16 Blood Pressure 143/69 H Blood Pressure [Left Arm] 138/81 Pulse Oximetry 98 100 Medical Decision Making [facility] Narrative Medical decision making narrative: The redness of the skin around the G-tube is most likely irritation this again secondary to gastric contents that do seem to be leaking. I have a lower suspicion that this is a cellulitis. The tube is flushing well per the patient. We did not flush it here in the ER. He did have some yellow drainage around the tube. I discussed the case with Dr. Lira with General surgery at [facility] which is where the patient had his G-tube placed. She stated this is most likely just the tube making the ostomy slightly larger and causing the drainage. This should improve with time. Agree the patient needs no further workup here in the emergency department. The General surgery Clinic at [facility] is going to contact him tomorrow for a follow-up. Patient was given return precautions and follow-up instructions. He expressed understanding and agreement. Discharge Plan Departure Patient Disposition: Home Clinical Impression: Complication of gastrostomy tube Activity Restrictions/Additional Instructions: Use the barrier cream underneath any bandages like we discussed. The [facility] surgery clinic is going to call you tomorrow to discuss follow-up. You can continue to use your G-tube as directed. Return to the emergency department for any new or worsening symptoms Prescriptions: No Action pantoprazole 40 mg tablet,delayed release (DR/EC) 40 mg PO DAILY Qty: 30 RF: 2 gabapentin 300 mg capsule 300 mg PO TID Qty: 90 RF: 5 Ensure Original Liquid 1 each PO TID Qty: 90 RF: 11 metoprolol succinate 25 mg tablet extended release 24 hr 25 mg PO DAILY RF: 0 lisinopril 2.5 mg tablet 2.5 mg PO DAILY RF: 0 rosuvastatin 20 mg tablet 20 mg PO DAILY RF: 0 Referrals: Navi Emmanuel MD [Primary Care Provider] -
[2020-03-21 22:03] VITALS: BP 138/81; PULSE 71; RESP 16; O2SAT 100
--- NOTE | 2020-03-21 22:07 | PC.NURSE ---
Pt out of room wanted to update Dr. Olea his drainage problem has resolved on its own now. Dr. Olea aware in room speaking with pt.
--- NOTE | 2020-03-21 22:08 | PC.NURSE ---
Lab in to draw 2200 Troponin.
[2020-03-21 22:21] VITALS: BP 141/71; PULSE 81; RESP 16; O2SAT 98
== END 2020-03-21 22:17 | disposition home or self-care (01) ==
PROVIDERS: Emergency Provider Emergency Medicine; PCP Student in an Organized Health Care Education/Training Program
DX: K94.20 Gastrostomy complication, unspecified (principal)
CPT/HCPCS: 99282

== ENCOUNTER 2020-03-30 20:48 | Emergency (ER) | payer MEDICARE, SELFPAY ==
[2020-03-30 20:53] VITALS: BP 133/77; PULSE 93; RESP 14; TEMP 36.4; O2SAT 100; BMI 22.9
--- NOTE | 2020-03-30 21:01 | DI.RAD.S_ITS ---
PROCEDURE: XR CHEST 1V INDICATIONS: SOB TECHNIQUE: One view of the chest was acquired. COMPARISON: [facility], CR, XR CHEST 1V, 08/01/2019, 13:27. FINDINGS: Surgical changes and devices: Right chest wall Port-A-Cath tip is in SVC. Median sternotomy wires and surgical clips are again seen. Lungs and pleura: Lungs are clear. No pleural effusions or pneumothorax. Mediastinum: Mediastinal contours appear normal. Heart size is normal. Bones and chest wall: No suspicious bony lesions. Overlying soft tissues appear unremarkable. IMPRESSION: No acute cardiopulmonary pathology. Dictated by: Aj Lugo M.D. on 03/30/2020 at 21:21 Approved by: Aj Lugo M.D. on 03/30/2020 at 21:22
--- NOTE | 2020-03-30 21:25 | DI.CT.S_ITS ---
PROCEDURE: CT ANGIO ABD AORTA RUNOFF INDICATIONS: Concern for ischemic limb TECHNIQUE: After the administration of intravenous contrast, 2.5 mm sections acquired from T12 to the feet, with optional delayed image acquisition from the knees to the feet. 3-dimensional maximum intensity projection (MIP) coronal and sagittal reformats, and/or 3-dimensional volume rendering reformatting was then performed. For radiation dose reduction, the following was used: automated exposure control. COMPARISON: [facility], CT, CT ANGIO CHEST PE, 07/21/2015, 4:36. [facility], CT, CT CHEST ABDOMEN WITH CONTRAST, 03/19/2020, 10:46. [facility], CT, CT ABDOMEN HEPATIC/ADRENAL PROTOCOL, 03/06/2020, 9:23. FINDINGS: Image quality: Diagnostic. Extravascular structures: Lung bases: The imaged lung bases demonstrate mild scarring within the lingula, which is unchanged since 2014, compatible with a benign process. Otherwise, the imaged lung bases are clear. The heart is normal in size without a pericardial effusion. Coronary artery atherosclerosis is noted. Solid organs: The liver, spleen, adrenals, and pancreas appear to be within normal limits, but are not well characterized related to the timing of the contrast bolus. No focal abnormalities are appreciated. There is atrophy involving the left kidney without hydronephrosis. The right kidney is within normal limits without hydronephrosis. No cystic or solid renal lesions are appreciated. Bowel and peritoneum: The stomach is prominently distended with food. No focal narrowing of the gastric outlet is appreciated. The duodenum is unremarkable. The small bowel loops are nondilated. There is a left upper quadrant jejunostomy feeding tube, which appears to be in appropriate position. The appendix is well-visualized and is normal without surrounding inflammation. Moderate residual stool is identified within the colon. There is mild wall thickening involving the sigmoid colon which is noted to be decompressed. No surrounding inflammation is evident. No free fluid, loculated fluid collection or free air is evident. Lymph nodes and retroperitoneum: No retroperitoneal hematoma or mass is evident. No enlarged retroperitoneal or mesenteric lymph nodes are identified. Pelvic soft tissues: No free fluid or loculated fluid collection is evident. There is wall thickening of the urinary bladder with associated enlargement of the prostate gland. The prostate measures approximately 3.9 x 5.4 cm. Few coarse calcifications within the prostate are present. No pelvic adenopathy is identified. No inguinal lymph nodes are appreciated. There is a very large left scrotal hydrocele, which is not adequately characterized. Lower extremity soft tissues: No soft tissue masses or fluid collections are identified involving the imaged bilateral lower extremities. Please note that the ligamentous, tendinous, and cartilaginous structures of the hips, knees, and ankles/feet are not adequately characterized on CT. No obvious abnormalities are appreciated. No significant joint effusions at the knees or ankles are evident. There is no significant atrophy identified involving the imaged muscles. Bones: No acute fracture or suspicious osseous lesion is identified involving the osseous structures of the abdomen, pelvis, or bilateral lower extremities. The degree of degenerative changes involving the imaged spine and lower extremity joints are age-appropriate. Abdominal aorta and associated branch vessels: Extensive atherosclerosis with irregular plaque is identified throughout the imaged portions of the imaged aorta from the lower thoracic aorta to the level of the aortic bifurcation. Irregularity mural thrombus is identified throughout these regions. There is aneurysmal dilatation of the infrarenal abdominal aorta, which measures up to 3.2 cm in AP dimension (image 45, series 4), which is unchanged since the exam from 03/19/20. No periaortic hematoma is evident. No evidence of dissection is appreciated. There is prominent atherosclerosis involving the origins of the celiac artery, superior mesenteric artery, inferior mesenteric artery, and bilateral renal arteries. There likely is severe atherosclerosis of the origin of the left renal artery given the associated left renal atrophy. Iliac arteries: There is severe atherosclerosis involving the bilateral common iliac arteries with areas of moderate to high-grade narrowing, which is not well characterized related to prominent atherosclerotic calcifications. These findings are more prominent on the left when compared to the right. However, there is no occlusion of these vessels. This appearance is similar to the prior exam. There is also moderate atherosclerosis involving the bilateral internal and external iliac arteries without associated occlusion. Areas of moderate narrowing are evident involving these vessels (left greater than right). No aneurysm, occlusion, or dissection of these vessels is appreciated. Right lower extremity arteries: The right common femoral artery and profunda femoral artery demonstrates mild atherosclerosis without high-grade narrowing. The superficial femoral artery demonstrates luil-ru-eemwozct atherosclerosis that is more prominent along its origin and through the adductor canal. There is no high-grade narrowing. There is moderate atherosclerosis involving the popliteal artery without high-grade narrowing. The tibioperoneal trunk, anterior tibial artery, and posterior tibial artery are widely patent to the level of the ankle. However, there is bprn-sc-gbcqisiw atherosclerosis involving the proximal portions of these arteries. No occlusions, aneurysms, or dissections are appreciated involving the right lower extremity arteries. Left lower extremity arteries: The left common femoral artery and profunda femoral arteries also demonstrate dwwz-xh-dggudrse atherosclerosis without high-grade narrowing or occlusion. There is moderate atherosclerosis at the origin of the left superficial femoral artery with additional areas of patchy moderate atherosclerotic changes with areas of approximately 50% narrowing, best appreciated through the region of the adductor canal. The popliteal artery demonstrates mild atherosclerosis. The tibioperoneal trunk, anterior tibial artery, and peroneal artery are widely patent to the level of the foot without occlusion, aneurysm, or high-grade narrowing. IMPRESSION: 1. Severe atherosclerosis of the aorta and bilateral lower extremity arteries without occlusion or dissection. 2. Mild aneurysmal dilatation of the lower abdominal aorta. 3. Severe bilateral common iliac artery atherosclerosis with areas of high-grade narrowing. No occlusion. 4. Severe narrowing involving the origin of the left renal artery. No occlusion. 5. Moderate atherosclerosis of the bilateral lower extremity arteries without occlusion, aneurysm, or dissection. A three-vessel flow is seen to the level of both feet. Additional findings: -Atrophic left kidney. -Wall thickening of the sigmoid colon probably is exaggerated by incomplete distention. Please correlate clinically to exclude the possibility of colitis. No bowel obstruction. -Jejunostomy feeding tube. -Urinary bladder wall thickening probably is related to chronic bladder outlet obstruction from enlarged prostate. Please correlate clinically to exclude cystitis. Note: The preliminary report provided by [facility] is concordant with the final report. Dictated by: Todd Panda M.D. on 03/31/2020 at 12:11 Approved by: Todd Panda M.D. on 03/31/2020 at 12:34
[2020-03-30 21:27] LABS: Add Manual Diff / Slide Review NO; Basophils Absolute Auto 0 /uL (0-100); Basophils Percent Auto 0.5 % (0-2); Eosinophils Absolute Auto 0 /uL (0-450); Eosinophils Percent Auto 0.7 % (2-4); Hematocrit 30.9 % (41-53); Hemoglobin 10.1 g/dL (13.5-17.5); Lymphocytes Absolute Auto 2600 /uL (1100-4500); Lymphocytes Percent Auto 41.6 % (25-40); Mean Corpuscular HGB Conc 32.8 % (30-36); Mean Corpuscular Hemoglobin 27.4 PG (26-34); Mean Corpuscular Volume 83.6 fL (80-100); Monocytes Absolute Auto 200 /uL (0-900); Monocytes Percent Auto 3.5 % (3-14); Neutrophils Absolute Auto 3300 /uL (1500-7000); Neutrophils Percent Auto 53.7 % (50-75); Platelet Count 222 X10^3/uL (150-400); Red Cell Distribution Width 17.6 % (11.6-14.8); White Blood Cell Count 6.2 X10^3/uL (4.5-11.0)
--- NOTE | 2020-03-30 21:31 | PC.NURSE ---
patient reports left leg going numb instantly while on toilet. Reports unable to move or feel extremity. Pt withdrew left leg when painful stimuli applied. No distal pulses located by palpation or doppler. Pt reports pain going up into his groin area. Provider notified and at bedside.
[2020-03-30 21:34] LABS: INR 1.1 (0.9-1.3); Prothrombin Time 12.4 SECONDS (10.1-12.7)
[2020-03-30 21:37] LABS: PTT Partial Thromboplastin Tim 26 SECONDS (26.4-36.2)
[2020-03-30 21:38] LABS: BUN Creatinine Ratio 43.7 (6-22); Blood Urea Nitrogen 31 mg/dL (9-20); Calcium 8.9 mg/dL (8.4-10.2); Carbon Dioxide 24 mmol/L (22-32); Chloride 100 mmol/L (98-107); Estimated Glomerular Filt Rate > 60.0 mL/min (>60); Glucose 119 mg/dL (80-110); HEMOLYSIS < 15 (0-50); Potassium 4.2 mmol/L (3.4-5.1); Sodium 131 mmol/L (137-145)
--- NOTE | 2020-03-30 21:42 | ED.EXTPRO ---
HPI - Extremity Problem General Chief complaint: Extremity Problem,Nontraumatic Stated complaint: Left Leg Numb Time Seen by Provider: 03/30/20 20:50 Source: patient Mode of arrival: EMS Limitations: no limitations History of Present Illness HPI Narrative: Patient is a 69-year-old male. Has esophageal cancer. Has a G tube in place. I have evaluated him here in the emergency department in the past for issues with his G-tube. He presents emergency department this evening by EMS for evaluation of what he states is a numb left lower extremity. Patient states that he was at his normal state health. He states he was sitting on the toilet. He did not think that he was sitting on the toilet for an extended period of time. He said he noticed that his left leg was tingling and then numb. The symptoms have continued despite getting up and walking around. He has no right lower extremity symptoms. He does describe some lower back pain. He has never had anything like this before. He had no problems going to the bathroom this evening. No fevers. Has not tried anything for symptoms prior to arrival. 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 He does not remember why his doctor told him to do this. Related Data Home Medications Medication Instructions Recorded Confirmed lisinopril 2.5 mg PO DAILY 09/19/19 02/01/20 metoprolol succinate 25 mg PO DAILY 09/19/19 02/01/20 rosuvastatin 20 mg PO DAILY 09/19/19 02/01/20 Previous Rx's Medication Instructions Recorded food supplemt, lactose-reduced 1 each PO TID #90 each 02/01/20 pantoprazole 40 mg tablet,delayed 40 mg PO DAILY #30 tab 02/21/20 release gabapentin 300 mg capsule 300 mg PO TID #90 cap 03/19/20 Allergies Allergy/AdvReac Type Severity Reaction Status Date / Time ibuprofen [IBUPROFEN] Allergy Unknown RASH/TINGLI Verified 03/30/20 20:58 NG Review of Systems Constitutional Constitutional: Denies fever(s) and Denies headache(s) ENT Ears, Nose, Mouth, and Throat: Denies vertigo, Denies dizziness and Denies headache(s) Cardiovascular Cardiovascular: Denies chest pain and Denies dyspnea Respiratory Respiratory: Denies cough and Denies dyspnea Gastrointestinal Gastrointestinal: Denies abdominal pain and Denies vomiting Genitourinary Genitourinary: Denies urinary frequency, Denies urinary hesitancy and Denies urinary incontinence Musculoskeletal Musculoskeletal: Denies myalgias, Denies arthralgias, Denies muscle weakness, Reports numbness and Reports tingling Integumentary/Breasts Skin/Breast: Denies lesions and Denies rash Neurologic Neurologic: Denies vertigo, Denies dizziness, Denies headache(s), Reports numbness, Reports tingling and Reports paresthesias Hematologic/Lymphatic Hematologic/Lymphatic: Denies easy bleeding and Denies easy bruising Allergic/Immunologic Allergic/Immunologic: Denies urticaria Patient History Medical History Chronic obstructive pulmonary disease (12/28/15) Congestive heart failure (12/28/15) Coronary artery disease involving sioux coronary artery of sioux heart without angina pectoris (12/28/15) Difficulty swallowing (Chronic) Essential hypertension (Chronic 12/28/15) GERD (gastroesophageal reflux disease) (Chronic) Hydrocele (Resolved) Mixed hyperlipidemia (12/28/15) Surgical History History of heart artery stent (Acute) Hx of CABG (Acute) Social History Smoking Status: Current every day smoker alcohol intake: former Smoking Status: Current every day smoker tobacco type: cigarettes alcohol intake frequency: 0-2 drinks per day Substance Use Type: marijuana Exam Initial Vital Signs Initial Vital Signs: Vital Signs Temperature 97.5 F L 03/30/20 20:53 Pulse Rate 93 H 03/30/20 20:53 Respiratory Rate 14 03/30/20 20:53 Blood Pressure 133/77 03/30/20 20:53 Pulse Oximetry 100 03/30/20 20:53 Const General: cooperative Limitations: mental status not altered HENMT Head: normal to inspection and normocephalic Resp Effort & Inspection: normal respiratory effort Auscultation: clear to auscultation bilaterally Cardio Rate: regular rate Rhythm: regular rhythm Skin Lesions: no lesions Rashes: no rashes Neuro Other: Patient reports no symptoms with his right lower extremity. He does state that he has decreased sensation to light touch to his left lower extremity. He states that it is circumferential from his groin down to his toes. He states he can feel his lower extremity however with noxious stimuli he does withdrawal. He states that he can feel the noxious stimuli. He states he can feel the light touch it feels different from the right side. Again this is circumferential from his hip to his toes. Extrem Other: Patient can flex and extend his left ankle, knee and hip. Can internally and externally rotate the left hip. This does not seem to change any of his symptoms. Psych Appearance: grossly normal and well kempt Course Orders Ordered: ED Orders 03/30/20 21:01 XR chest 1V Stat 03/30/20 21:15 Basic Metabolic Panel Stat Complete Blood Count AUTO DIFF Stat D Dimer Stat NT-proBNP (BNP-Adult 18+) Stat Partial Thromboplastin Time Stat Prothrombin Time INR Stat Troponin I Stat 03/30/20 21:25 CT angio abd aorta runoff Stat 03/30/20 22:10 EKG-12 Lead Stat Discontinued Medications Sodium Chloride (Normal Saline 0.9%) 500 mls @ 1,000 mls/hr IV BOLUS ONE Stop: 03/30/20 22:11 Last Infusion: 03/30/20 23:03 Dose: 0 mls/hr Documented by: Admin: 03/30/20 22:26 Dose: 1,000 mls/hr Documented by: RAYMOND Morphine Sulfate (Morphine) 4 mg IV NOW ONE Stop: 03/30/20 21:44 Last Admin: 03/30/20 22:25 Dose: 4 mg Documented by: RAYMOND Vital Signs Vital signs: Vital Signs - 8 hr 03/30/20 20:53 03/30/20 23:47 03/31/20 01:35 Temperature 97.5 F L Pulse Rate 93 H 82 90 Respiratory Rate 14 16 14 Blood Pressure 133/77 132/70 Blood Pressure [Right Arm] 133/77 Pulse Oximetry 100 99 99 MDM - Extremity (Nontraumatic) Lab Data Result diagrams: 03/30/20 21:15 03/30/20 21:15 Labs: Lab Results 03/30/20 03/30/20 03/30/20 Range/Units 21:15 21:15 21:15 WBC 6.2 (4.5-11.0) X10^3/uL RBC 3.70 L (4.5-5.9) X10^6/uL Hgb 10.1 L (13.5-17.5) g/dL Hct 30.9 L (41-53) % MCV 83.6 (80-100) fL MCH 27.4 (26-34) PG MCHC 32.8 (30-36) % RDW 17.6 H (11.6-14.8) % Plt Count 222 (150-400) X10^3/uL Neut % (Auto) 53.7 (50-75) % Lymph % (Auto) 41.6 H (25-40) % [place] % (Auto) 3.5 (3-14) % Eos % (Auto) 0.7 L (2-4) % Baso % (Auto) 0.5 (0-2) % Neut # (Auto) 3300 (5847-5512) /uL Lymph # (Auto) 2600 (4839-7208) /uL [place] # (Auto) 200 (0-900) /uL Eos # (Auto) 0 (0-450) /uL Baso # (Auto) 0 (0-100) /uL PT 12.4 (10.1-12.7) SECONDS INR 1.1 (0.9-1.3) APTT 26 L D (26.4-36.2) SECONDS D-Dimer 554 H (<230) ng/mL Sodium 131 L (137-145) mmol/L Potassium 4.2 (3.4-5.1) mmol/L Chloride 100 (98-107) mmol/L Carbon Dioxide 24 (22-32) mmol/L BUN 31 H (9-20) mg/dL Creatinine 0.71 (0.66-1.25) mg/dL Estimated GFR > 60.0 (>60) mL/min BUN/Creatinine Ratio 43.7 H (6-22) Glucose 119 H (80-110) mg/dL Calcium 8.9 (8.4-10.2) mg/dL Troponin I < 0.012 (0.01-0.034) ng/mL NT-Pro-B Natriuret Pep 268 H (<125) pg/mL 03/30/20 03/30/20 Range/Units 21:15 21:15 WBC (4.5-11.0) X10^3/uL RBC (4.5-5.9) X10^6/uL Hgb (13.5-17.5) g/dL Hct (41-53) % MCV (80-100) fL MCH (26-34) PG MCHC (30-36) % RDW (11.6-14.8) % Plt Count (150-400) X10^3/uL Neut % (Auto) (50-75) % Lymph % (Auto) (25-40) % [place] % (Auto) (3-14) % Eos % (Auto) (2-4) % Baso % (Auto) (0-2) % Neut # (Auto) (7395-8862) /uL Lymph # (Auto) (1349-0258) /uL [place] # (Auto) (0-900) /uL Eos # (Auto) (0-450) /uL Baso # (Auto) (0-100) /uL PT Cancelled (10.1-12.7) SECONDS INR Cancelled (0.9-1.3) APTT (26.4-36.2) SECONDS D-Dimer (<230) ng/mL Sodium (137-145) mmol/L Potassium (3.4-5.1) mmol/L Chloride (98-107) mmol/L Carbon Dioxide (22-32) mmol/L BUN (9-20) mg/dL Creatinine (0.66-1.25) mg/dL Estimated GFR (>60) mL/min BUN/Creatinine Ratio (6-22) Glucose (80-110) mg/dL Calcium (8.4-10.2) mg/dL Troponin I Cancelled (0.01-0.034) ng/mL NT-Pro-B Natriuret Pep (<125) pg/mL Imaging Data Chest x-ray: Radiologist's Impression: [address] [address] XRay Report Signed Patient: Estiven Dean MARTA#: [id number] : 2Acct:[id number] Age/Sex: 69 / MDate of Service: 03/30/20 Loc: ED Accession Number: [id number] Procedure: XR chest 1V Ordering Provider: Pasha Olea D.O. PROCEDURE: XR CHEST 1V INDICATIONS: SOB TECHNIQUE: One view of the chest was acquired. COMPARISON: [facility], CR, XR CHEST 1V, 08/01/2019, 13:27. FINDINGS: Surgical changes and devices: Right chest wall Port-A-Cath tip is in SVC. Median sternotomy wires and surgical clips are again seen. Lungs and pleura: Lungs are clear. No pleural effusions or pneumothorax. Mediastinum: Mediastinal contours appear normal. Heart size is normal. Bones and chest wall: No suspicious bony lesions. Overlying soft tissues appear unremarkable. IMPRESSION: No acute cardiopulmonary pathology. Dictated by: Aj Lugo M.D. on 03/30/2020 at 21:21 Approved by: Aj Lugo M.D. on 03/30/2020 at 21:22 CT angio lower extremity: Radiologist's Impression: Motion affected study. Preserved 3 vessel calf runoff bilaterally. No high-grade stenosis or occlusion in the bilateral from more or popliteal arteries. Small infrarenal abdominal aortic aneurysm MDM Narrative Medical decision making narrative: Patient does have circumferential symptoms of his left leg from his hip to his toes. Does not follow any specific dermatome. Initially he stated that he could not feel anything. He described it as a ? leg ?however he spontaneously flex and extended at the knee in the hip in the ankle on the left. He did respond to noxious stimuli to his left lower extremity. His bilateral feet were cool to the touch prep felt that they were equal bilaterally. His cap refill was greater than 4 seconds with this also seemed to be equal bilateral. Unable to palpate DP pulses bilateral and were unable to Doppler DP pulses bilaterally. I was able to Doppler a PT pulse bilateral. Given his sudden onset of the symptoms, the fact that he stated that his doctor told him to come the emergency department here got tingling in his legs in the fact that we were unable to palpate/Doppler DP pulses felt a CTA was necessary to evaluate for any ischemic limb. This showed no acute issues with his vasculature in his leg. His symptoms were not consistent with a DVT. Upon initial evaluation patient did state that he was short of breath. He could not describe it any further than this. He describes shortness of breath as ?earlier today ?he was not having it currently. He is not having any chest pain. Because of this he was tested for COVID-19. I do have low suspicion for pulmonary embolism given the rest of his exam. Patient was given pain medication. After the pain medication and time in the emergency department patient stated that his symptoms had completely resolved. Unsure the exact etiology. This could potentially be a low back pain/sciatic/radiculopathy issue however I did not follow any specific dermatome. Was somewhat unusual that was circumferential from his groin to his toes. I feel that since his symptoms completely resolved after pain medication that we could hold on further workup for now. Given his other medical problems will hold on sending home with steroids. He does have gabapentin at home. He was given strict return precautions and follow-up instructions. He expressed understanding and agreement. Discharge Plan Departure Patient Disposition: Home Clinical Impression: Left leg paresthesias Discharge Date/Time: 03/31/20 01:40 Instructions: DI for Numbness/tingling Activity Restrictions/Additional Instructions: Recommend that you contact your primary provider for a follow-up. Continue all of your medications as directed. Return to the emergency department for any new or worsening symptoms Prescriptions: No Action pantoprazole 40 mg tablet,delayed release (DR/EC) 40 mg PO DAILY Qty: 30 RF: 2 gabapentin 300 mg capsule 300 mg PO TID Qty: 90 RF: 5 Ensure Original Liquid 1 each PO TID Qty: 90 RF: 11 metoprolol succinate 25 mg tablet extended release 24 hr 25 mg PO DAILY RF: 0 lisinopril 2.5 mg tablet 2.5 mg PO DAILY RF: 0 rosuvastatin 20 mg tablet 20 mg PO DAILY RF: 0 Referrals: Navi Emmanuel MD [Primary Care Provider] -
[2020-03-30 21:44] LABS: D Dimer 554 ng/mL (<230)
[2020-03-30 21:51] LABS: NT-proBNP (BNP-Adult 18+) 268 pg/mL (<125); Troponin I < 0.012 ng/mL (0.01-0.034)
[2020-03-30] MEDS: MORPHINE 4 MG/ML INJ IV (22:25)
[2020-03-30] MEDS: SODIUM CHLORIDE 0.9% 500 ML 1000 ML IV (22:26)
[2020-03-30 23:47] VITALS: BP 133/77; PULSE 82; RESP 16; O2SAT 99
[2020-03-31 01:35] VITALS: BP 132/70; PULSE 90; RESP 14; O2SAT 99
[2020-04-02 18:36] LABS: COVID19 Sendout Not Detected (Not Detected)
== END 2020-03-31 01:40 | disposition home or self-care (01) ==
PROVIDERS: Emergency Provider Emergency Medicine; PCP Student in an Organized Health Care Education/Training Program
DX: R20.2 Paresthesia of skin (principal); R06.02 Shortness of breath; C15.9 Malignant neoplasm of esophagus, unspecified; Z93.1 Gastrostomy status
CPT/HCPCS: 36415; 71045; 75635; 80048; 83880; 84484; 85025; 85379; 85610; 85730; 87635; 93005; 96361; 96374; 99284; J2270

== ENCOUNTER 2020-09-19 13:00 | Outpatient (RCR) | payer MEDICARE, SELFPAY ==
--- NOTE | 2020-07-04 16:22 | PT.OIE ---
Current Diagnoses Sciatica, unspecified side (07/04/20) Weakness (07/04/20) History of falling (07/04/20) Past Medical History (Last Updated 06/09/20 @ 16:46 by Navi Emmanuel MD) Chronic obstructive pulmonary disease (12/28/15) Congestive heart failure (12/28/15) Coronary artery disease involving samish coronary artery of samish heart without angina pectoris (12/28/15) Difficulty swallowing (Resolved) Essential hypertension (Chronic 12/28/15) GERD (gastroesophageal reflux disease) (Chronic) Hydrocele (Resolved) Mixed hyperlipidemia (12/28/15) Past Surgical History (Last Reviewed 03/31/20 @ 02:15 by Pasha Olea DO) History of heart artery stent (Acute) Hx of CABG (Acute) Visit Care Team Role Provider Type Navi Emmanuel MD Attending Provider Physician Primary Care Provider Referring Provider Specialty: Internal Medicine Address: [address] [place] [address], [facility] Email: [email or web address] Physical Therapy Initial Evaluation PT-OP-A Visit Information Start: 07/02/20 12:11 Freq: Status: Active Protocol: Document 07/02/20 13:00 SAK (Rec: 07/03/20 17:26 [facility] [id number]) Out-Patient Physical Therapy Visit Information Visit Information Visit Type Initial Evaluation Visit Start Time 13:00 Visit Stop Time 13:55 Total Visit Minutes 55 Visit Number 1 Number of HAT 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 1 year ago progressive worsening especially left LE; symptoms as 15 years ago. Has fallen 3 times over past 3 months due to pain. New development of hernia noticed a couple weeks ago, some pain constantly. LE pain goes away 10-15 min after sitting, has to sit immediately sometimes otherwise will drop. Has numbness and tingling when the pain at its worst. Uses cane for gait, uses in right hand. Symptoms worsened after chemotherapy. Prior Treatments and Tests esophageal cancer. Has appointment tomorrow with oncologist. Hernia may be due to prior surgery for feeding tube. Undergoing chemo, 3 wks ago finished radiation. Lumbar spine x-ray 01/25/20: Mild to moderate degenerative disc disease as discussed without subluxation or trauma. Spinal or foraminal stenosis is not found. Future Testing and Treatments Planned oncologist tomorrow. Treatment Goals Patient/Caregiver Goals decrease pain, eliminate falls Prior Functional Status Baseline Function- ADL's Independent Baseline Function- Mobility Independent Baseline Function- Gait no device Baseline Function- Recreation/Hobbies fishing and crabbing; able Current Functional Impairments (Reported) Functional Limitations- ADL's painful, modified Functional Limitations- Mobility/Gait limited due to pain and fear of falling Functional Limitations- Recreation/ unable to go fishing or Hobbies crabbing PT-OP-C Subjective Start: 07/02/20 12:11 Freq: Status: Active Protocol: Document 07/02/20 13:00 [facility] (Rec: 07/04/20 09:41 [facility] [id number]) Patient Questionnaires Oswestry Low Back Index Oswestry Score 34 OP-PT Pain Assessment Pain Assessment Grid Paper Pain Assessment Grid Completed Yes Location left LE posterior and lateral hip to ankle Intensity 5 Description Aching,Burning,Chronic, Cramping,Throbbing,Tingling Pain Behaviors Pain Behaviors Facial Grimacing,Guarding, Wincing PT-OP-G Mobility & Gait Start: 07/02/20 12:11 Freq: Status: Active Protocol: Document 07/02/20 13:00 [facility] (Rec: 07/04/20 09:41 [facility] [id number]) OP Gait Assessment Gait Gait Assistance Required: Independent Assistive Devices Assistive Device Straight Cane Orthotic/Prosthetic Devices or Brace: No Gait Deviations General Gait Pattern Antalgic,Decreased Stride Length,Decreased Feet Clearance,Flexed Trunk,Wide Based Gait Factors Limiting Gait Function Factors Limiting Gait Function Decreased Strength,Pain PT-OP-J Posture/Palpation/Skin Start: 07/02/20 12:11 Freq: Status: Active Protocol: Document 07/02/20 13:00 [facility] (Rec: 07/04/20 09:41 [facility] [id number]) Posture Evaluation Position Standing Head/C-Spine Posture Forward Head T-Spine Posture Increased Kyphosis L-Spine Posture Flattened Pelvis Posture Posterior Tilted Weight Distribution Weight Shifted Right Hip Posture (L) Externally Rotated,(R) Externally Rotated Knee Posture (L) Excess Flexion,(R) Excess Flexion Ankle/Foot Posture (L) Forefoot Eversion,(R) Forefoot Eversion Palpation Assessment Location lumbar spine Palpation Location saad l/s left greater than right Palpation Findings Tenderness left LE Palpation Location throughout thigh anterior andposterior Palpation Findings Tenderness Skin Assessment Other Assessments Skin Assessment Comments skin intact, no edema, no increase in warmth PT-OP-K Range of Motion Start: 07/02/20 12:11 Freq: Status: Active Protocol: Document 07/02/20 13:00 [facility] (Rec: 07/04/20 09:41 [facility] [id number]) Lumbar Spine Range of Motion Lumbar Spine Active Testing Position Standing ROM Limitations Pain Comments moderate decrease all motions. Hip Goniometric Range of Motion Hip saad Hip ROM WFL Yes PT-OP-Q Treatments Start: 07/02/20 12:11 Freq: Status: Active Protocol: Document 07/02/20 13:00 [facility] (Rec: 07/04/20 09:41 [facility] [id number]) Self-Care/Home Management Treatment Education Patient Education Home Exercise Program,Pain Management Other Education Consider use of walker for more support to prevent falls PT-OP-R Modalities Start: 07/02/20 12:11 Freq: Status: Active Protocol: Document 07/02/20 13:00 [facility] (Rec: 07/04/20 09:41 [facility] [id number]) Hot Pack/Cold Pack Treatment Hot Pack Location lumbar spine Patient Position Hooklying Treatment Duration (minutes) 15 Patient Tolerance Good PT-OP-T Assessment and Plan Start: 07/02/20 12:11 Freq: Status: Active Protocol: Document 07/02/20 13:00 [facility] (Rec: 07/04/20 09:41 [facility] [id number]) Physical Therapy Assessment Rehab Potential Rehabilitation Potential Good Evaluation Complexity Number of Personal Factors/Comorbidities 1-2 Number of Body Systems Impaired 3 Clinical Presentation at Evaluation Evolving Impairments Impairments Activity Tolerance,Gait,Pain, Strength Goals Four Impairment muscle weakness core and LE's Longterm Goal (LTG) Patient to be independent in HEP for purposes of core and LE strengthening, will demonstrate good activation of core musculature, and LE muscle strength will increase to 5/5 LTG Duration 09/02/20 Three Impairment gait dysfunction, unable to walk greater than 1-2 min Longterm Goal (LTG) Patient will be able to ambulate at least 15 min without increase in symptoms or leg giving way LTG Duration 09/02/20 Two Impairment pain left LE 5/10 pain scale Longterm Goal (LTG) Decrease pain in left LE and lumbar spine to no greater than 2/10 during all usual activities LTG Duration 09/02/20 One Impairment activity tolerance: Oswestry disability Index score 34% Facilities Maintenance Assistant Goal (LTG) Improve activity tolerance as evidenced by decrease in Oswestry disability index score to no greater than 15% LTG Duration 09/02/20 Assessment Summary Assessment Patient presents with function limiting pain low back, numbness and tingling of his left LE resulting in it giving way. These symptoms are the worst in standing, with severe limitation in patient's ability to walk or stand more than 1-2 min. Signs and symptoms indicative of possible nerve root compression with patient reporting decrease in symptoms with gentle manual lumbar traction. Symptoms also decreased with sitting vs standing. Also responded well to use of moist heat to lumbar spine. Physical Therapy Plan Frequency and Duration Frequency of Treatment 2x/Week Duration of Treatment 8 wks Plan of Care Start Date 07/02/20 Plan of Care End Date 09/02/20 Therapeutic Interventions Therapeutic Interventions Aquatic Therapy,Home Exercise Program,Manual Therapy, Neuromuscular Re-education, Patient/Caregiver Education, Self-Care/Home Management,Soft Tissue Mobilization,Taping, Therapeutic Activities, Therapeutic Exercises Modalities Cold Pack/Ice Massage,Electric Stimulation,Hot Packs Next Visit Focus/Plan Next Note Type Treatment Note Next Visit Plan Review HEP and progress ther ex as tolerated, manual traction, moist heat.
--- NOTE | 2020-07-04 16:23 | PT.OPPOC ---
Physical, Occupational & Speech Therapy At [facility] Current Diagnoses Sciatica, unspecified side (07/04/20) Weakness (07/04/20) History of falling (07/04/20) Visit Care Team Role Provider Type Navi Emmanuel MD Attending Provider Physician Primary Care Provider Referring Provider Specialty: Internal Medicine Address: [address] [place] [address], [address], [facility] Email: [email or web address] Plan Of Care PT-OP-T Assessment and Plan Start: 07/02/20 12:11 Freq: Status: Active Protocol: Document 07/02/20 13:00 TJ (Rec: 07/04/20 09:41 SAK [id number]) Physical Therapy Assessment Rehab Potential Rehabilitation Potential Good Evaluation Complexity Number of Personal Factors/Comorbidities 1-2 Number of Body Systems Impaired 3 Clinical Presentation at Evaluation Evolving Impairments Impairments Activity Tolerance,Gait,Pain, Strength Goals Four Impairment muscle weakness core and LE's Residential Goal (LTG) Patient to be independent in HEP for purposes of core and LE strengthening, will demonstrate good activation of core musculature, and LE muscle strength will increase to 5/5 LTG Duration 09/02/20 Three Impairment gait dysfunction, unable to walk greater than 1-2 min Residential Goal (LTG) Patient will be able to ambulate at least 15 min without increase in symptoms or leg giving way LTG Duration 09/02/20 Two Impairment pain left LE 5/10 pain scale Drywall Application Supervisor Goal (LTG) Decrease pain in left LE and lumbar spine to no greater than 2/10 during all usual activities LTG Duration 09/02/20 One Impairment activity tolerance: Oswestry disability Index score 34% Residential Goal (LTG) Improve activity tolerance as evidenced by decrease in Oswestry disability index score to no greater than 15% LTG Duration 09/02/20 Assessment Summary Assessment Patient presents with function limiting pain low back, numbness and tingling of his left LE resulting in it giving way. These symptoms are the worst in standing, with severe limitation in patient's ability to walk or stand more than 1-2 min. Signs and symptoms indicative of possible nerve root compression with patient reporting decrease in symptoms with gentle manual lumbar traction. Symptoms also decreased with sitting vs standing. Also responded well to use of moist heat to lumbar spine. Physical Therapy Plan Frequency and Duration Frequency of Treatment 2x/Week Duration of Treatment 8 wks Plan of Care Start Date 07/02/20 Plan of Care End Date 09/02/20 Therapeutic Interventions Therapeutic Interventions Aquatic Therapy,Home Exercise Program,Manual Therapy, Neuromuscular Re-education, Patient/Caregiver Education, Self-Care/Home Management,Soft Tissue Mobilization,Taping, Therapeutic Activities, Therapeutic Exercises Modalities Cold Pack/Ice Massage,Electric Stimulation,Hot Packs Next Visit Focus/Plan Next Note Type Treatment Note Next Visit Plan Review HEP and progress ther ex as tolerated, manual traction, moist heat. Plan of Care Dates Plan of Care Start Date 07/02/20 Plan of Care End Date 09/02/20 Electronically Signed by: Kenzie Randolph, PT 07/04/20 [id number] Please Sign and Return: I have reviewed this Plan of Care and certify that the skilled therapy services above are required to meet the patient?s needs. Physician Signature Date Printed Name and Credentials Clinical Instructor Signature Printed Name and Credentials
--- NOTE | 2020-07-04 16:24 | PT.OIE ---
Current Diagnoses Sciatica, unspecified side (07/04/20) Weakness (07/04/20) History of falling (07/04/20) Past Medical History (Last Updated 06/09/20 @ 16:46 by Navi Emmanuel MD) Chronic obstructive pulmonary disease (12/28/15) Congestive heart failure (12/28/15) Coronary artery disease involving eek coronary artery of eek heart without angina pectoris (12/28/15) Difficulty swallowing (Resolved) Essential hypertension (Chronic 12/28/15) GERD (gastroesophageal reflux disease) (Chronic) Hydrocele (Resolved) Mixed hyperlipidemia (12/28/15) Past Surgical History (Last Reviewed 03/31/20 @ 02:15 by Pasha Olea DO) History of heart artery stent (Acute) Hx of CABG (Acute) Visit Care Team Role Provider Type Navi Emmanuel MD Attending Provider Physician Primary Care Provider Referring Provider Specialty: Internal Medicine Address: [address] [place] [address], [facility] Email: [email or web address] Physical Therapy Initial Evaluation PT-OP-A Visit Information Start: 07/02/20 12:11 Freq: Status: Active Protocol: Document 07/02/20 13:00 SAK (Rec: 07/03/20 17:26 [facility] [id number]) Out-Patient Physical Therapy Visit Information Visit Information Visit Type Initial Evaluation Visit Start Time 13:00 Visit Stop Time 13:55 Total Visit Minutes 55 Visit Number 1 Number of BACK TENDER INSULATION BOARD Visits 0 Evaluation Information Evaluation Date 07/02/20 Precautions Precautions esophageal cancer PT-OP-B Current Condition Start: 07/02/20 12:11 Freq: Status: Active Protocol: Document 07/02/20 13:00 SAK (Rec: 07/02/20 13:47 SAK [id number]) Current Condition History of Current Condition Onset Date 15 year Current Complaints LE pain left greater than right History of Current Condition 15 years ago back injury due to lifting. 1 year ago progressive worsening especially left LE; symptoms as 15 years ago. Has fallen 3 times over past 3 months due to pain. New development of hernia noticed a couple weeks ago, some pain constantly. LE pain goes away 10-15 min after sitting, has to sit immediately sometimes otherwise will drop. Has numbness and tingling when the pain at its worst. Uses cane for gait, uses in right hand. Symptoms worsened after chemotherapy. Prior Treatments and Tests esophageal cancer. Has appointment tomorrow with oncologist. Hernia may be due to prior surgery for feeding tube. Undergoing chemo, 3 wks ago finished radiation. Lumbar spine x-ray 01/25/20: Mild to moderate degenerative disc disease as discussed without subluxation or trauma. Spinal or foraminal stenosis is not found. Future Testing and Treatments Planned oncologist tomorrow. Treatment Goals Patient/Caregiver Goals decrease pain, eliminate falls Prior Functional Status Baseline Function- ADL's Independent Baseline Function- Mobility Independent Baseline Function- Gait no device Baseline Function- Recreation/Hobbies fishing and crabbing; able Current Functional Impairments (Reported) Functional Limitations- ADL's painful, modified Functional Limitations- Mobility/Gait limited due to pain and fear of falling Functional Limitations- Recreation/ unable to go fishing or Hobbies crabbing PT-OP-C Subjective Start: 07/02/20 12:11 Freq: Status: Active Protocol: Document 07/02/20 13:00 [facility] (Rec: 07/04/20 09:41 [facility] [id number]) Patient Questionnaires Oswestry Low Back Index Oswestry Score 34 OP-PT Pain Assessment Pain Assessment Grid Paper Pain Assessment Grid Completed Yes Location left LE posterior and lateral hip to ankle Intensity 5 Description Aching,Burning,Chronic, Cramping,Throbbing,Tingling Pain Behaviors Pain Behaviors Facial Grimacing,Guarding, Wincing PT-OP-G Mobility & Gait Start: 07/02/20 12:11 Freq: Status: Active Protocol: Document 07/02/20 13:00 [facility] (Rec: 07/04/20 09:41 [facility] [id number]) OP Gait Assessment Gait Gait Assistance Required: Independent Assistive Devices Assistive Device Straight Cane Orthotic/Prosthetic Devices or Brace: No Gait Deviations General Gait Pattern Antalgic,Decreased Stride Length,Decreased Feet Clearance,Flexed Trunk,Wide Based Gait Factors Limiting Gait Function Factors Limiting Gait Function Decreased Strength,Pain PT-OP-J Posture/Palpation/Skin Start: 07/02/20 12:11 Freq: Status: Active Protocol: Document 07/02/20 13:00 [facility] (Rec: 07/04/20 09:41 [facility] [id number]) Posture Evaluation Position Standing Head/C-Spine Posture Forward Head T-Spine Posture Increased Kyphosis L-Spine Posture Flattened Pelvis Posture Posterior Tilted Weight Distribution Weight Shifted Right Hip Posture (L) Externally Rotated,(R) Externally Rotated Knee Posture (L) Excess Flexion,(R) Excess Flexion Ankle/Foot Posture (L) Forefoot Eversion,(R) Forefoot Eversion Palpation Assessment Location lumbar spine Palpation Location saad l/s left greater than right Palpation Findings Tenderness left LE Palpation Location throughout thigh anterior andposterior Palpation Findings Tenderness Skin Assessment Other Assessments Skin Assessment Comments skin intact, no edema, no increase in warmth PT-OP-K Range of Motion Start: 07/02/20 12:11 Freq: Status: Active Protocol: Document 07/02/20 13:00 [facility] (Rec: 07/04/20 09:41 [facility] [id number]) Lumbar Spine Range of Motion Lumbar Spine Active Testing Position Standing ROM Limitations Pain Comments moderate decrease all motions. Hip Goniometric Range of Motion Hip saad Hip ROM WFL Yes PT-OP-Q Treatments Start: 07/02/20 12:11 Freq: Status: Active Protocol: Document 07/02/20 13:00 [facility] (Rec: 07/04/20 09:41 [facility] [id number]) Self-Care/Home Management Treatment Education Patient Education Home Exercise Program,Pain Management Other Education Consider use of walker for more support to prevent falls PT-OP-R Modalities Start: 07/02/20 12:11 Freq: Status: Active Protocol: Document 07/02/20 13:00 [facility] (Rec: 07/04/20 09:41 [facility] [id number]) Hot Pack/Cold Pack Treatment Hot Pack Location lumbar spine Patient Position Hooklying Treatment Duration (minutes) 15 Patient Tolerance Good PT-OP-T Assessment and Plan Start: 07/02/20 12:11 Freq: Status: Active Protocol: Document 07/02/20 13:00 [facility] (Rec: 07/04/20 09:41 [facility] [id number]) Physical Therapy Assessment Rehab Potential Rehabilitation Potential Good Evaluation Complexity Number of Personal Factors/Comorbidities 1-2 Number of Body Systems Impaired 3 Clinical Presentation at Evaluation Evolving Impairments Impairments Activity Tolerance,Gait,Pain, Strength Goals Four Impairment muscle weakness core and LE's Shelter Goal (LTG) Patient to be independent in HEP for purposes of core and LE strengthening, will demonstrate good activation of core musculature, and LE muscle strength will increase to 5/5 LTG Duration 09/02/20 Three Impairment gait dysfunction, unable to walk greater than 1-2 min Shelter Goal (LTG) Patient will be able to ambulate at least 15 min without increase in symptoms or leg giving way LTG Duration 09/02/20 Two Impairment pain left LE 5/10 pain scale Shelter Goal (LTG) Decrease pain in left LE and lumbar spine to no greater than 2/10 during all usual activities LTG Duration 09/02/20 One Impairment activity tolerance: Oswestry disability Index score 34% Cytogenetic Technologist Goal (LTG) Improve activity tolerance as evidenced by decrease in Oswestry disability index score to no greater than 15% LTG Duration 09/02/20 Assessment Summary Assessment Patient presents with function limiting pain low back, numbness and tingling of his left LE resulting in it giving way. These symptoms are the worst in standing, with severe limitation in patient's ability to walk or stand more than 1-2 min. Signs and symptoms indicative of possible nerve root compression with patient reporting decrease in symptoms with gentle manual lumbar traction. Symptoms also decreased with sitting vs standing. Also responded well to use of moist heat to lumbar spine. Physical Therapy Plan Frequency and Duration Frequency of Treatment 2x/Week Duration of Treatment 8 wks Plan of Care Start Date 07/02/20 Plan of Care End Date 09/02/20 Therapeutic Interventions Therapeutic Interventions Aquatic Therapy,Home Exercise Program,Manual Therapy, Neuromuscular Re-education, Patient/Caregiver Education, Self-Care/Home Management,Soft Tissue Mobilization,Taping, Therapeutic Activities, Therapeutic Exercises Modalities Cold Pack/Ice Massage,Electric Stimulation,Hot Packs Next Visit Focus/Plan Next Note Type Treatment Note Next Visit Plan Review HEP and progress ther ex as tolerated, manual traction, moist heat.
--- NOTE | 2020-07-04 16:36 | PT.OTN ---
Current Diagnoses Sciatica, unspecified side (07/04/20) Weakness (07/04/20) History of falling (07/04/20) Physical Therapy Treatment Note PT-OP-A Visit Information Start: 07/02/20 12:11 Freq: Status: Active Protocol: Document 07/04/20 16:27 [facility] (Rec: 07/04/20 16:36 [facility] [id number]) Out-Patient Physical Therapy Visit Information Visit Information Visit Type Treatment Note Visit Start Time 13:45 Visit Stop Time 14:30 Total Visit Minutes 45 Visit Number 2 Number of DOG OBEDIENCE INSTRUCTOR Visits 0 Evaluation Information Evaluation Date 07/02/20 Precautions Precautions esophageal cancer PT-OP-B Current Condition Start: 07/02/20 12:11 Freq: Status: Active Protocol: Document 07/02/20 13:00 [facility] (Rec: 07/02/20 13:47 [facility] [id number]) Current Condition History of Current Condition Onset Date 15 year Current Complaints LE pain left greater than right History of Current Condition 15 years ago back injury due to lifting. 1 year ago progressive worsening especially left LE; symptoms as 15 years ago. Has fallen 3 times over past 3 months due to pain. New development of hernia noticed a couple weeks ago, some pain constantly. LE pain goes away 10-15 min after sitting, has to sit immediately sometimes otherwise will drop. Has numbness and tingling when the pain at its worst. Uses cane for gait, uses in right hand. Symptoms worsened after chemotherapy. Prior Treatments and Tests esophageal cancer. Has appointment tomorrow with oncologist. Hernia may be due to prior surgery for feeding tube. Undergoing chemo, 3 wks ago finished radiation. Lumbar spine x-ray 01/25/20: Mild to moderate degenerative disc disease as discussed without subluxation or trauma. Spinal or foraminal stenosis is not found. Future Testing and Treatments Planned oncologist tomorrow. Treatment Goals Patient/Caregiver Goals decrease pain, eliminate falls Prior Functional Status Baseline Function- ADL's Independent Baseline Function- Mobility Independent Baseline Function- Gait no device Baseline Function- Recreation/Hobbies fishing and crabbing; able Current Functional Impairments (Reported) Functional Limitations- ADL's painful, modified Functional Limitations- Mobility/Gait limited due to pain and fear of falling Functional Limitations- Recreation/ unable to go fishing or Hobbies crabbing PT-OP-C Subjective Start: 07/02/20 12:11 Freq: Status: Active Protocol: Document 07/04/20 16:27 [facility] (Rec: 07/04/20 16:36 [facility] [id number]) OP-PT Subjective Patient Comments Patient Comments Patient reports currently having the tingling sensation in his left leg, doesn't feel up to trying recumbent elliptical. PT-OP-G Mobility & Gait Start: 07/02/20 12:11 Freq: Status: Active Protocol: Document 07/02/20 13:00 [facility] (Rec: 07/04/20 09:41 [facility] [id number]) OP Gait Assessment Gait Gait Assistance Required: Independent Assistive Devices Assistive Device Straight Cane Orthotic/Prosthetic Devices or Brace: No Gait Deviations General Gait Pattern Antalgic,Decreased Stride Length,Decreased Feet Clearance,Flexed Trunk,Wide Based Gait Factors Limiting Gait Function Factors Limiting Gait Function Decreased Strength,Pain PT-OP-J Posture/Palpation/Skin Start: 07/02/20 12:11 Freq: Status: Active Protocol: Document 07/02/20 13:00 [facility] (Rec: 07/04/20 09:41 [facility] [id number]) Posture Evaluation Position Standing Head/C-Spine Posture Forward Head T-Spine Posture Increased Kyphosis L-Spine Posture Flattened Pelvis Posture Posterior Tilted Weight Distribution Weight Shifted Right Hip Posture (L) Externally Rotated,(R) Externally Rotated Knee Posture (L) Excess Flexion,(R) Excess Flexion Ankle/Foot Posture (L) Forefoot Eversion,(R) Forefoot Eversion Palpation Assessment Location lumbar spine Palpation Location saad l/s left greater than right Palpation Findings Tenderness left LE Palpation Location throughout thigh anterior andposterior Palpation Findings Tenderness Skin Assessment Other Assessments Skin Assessment Comments skin intact, no edema, no increase in warmth PT-OP-K Range of Motion Start: 07/02/20 12:11 Freq: Status: Active Protocol: Document 07/02/20 13:00 [facility] (Rec: 07/04/20 09:41 [facility] [id number]) Lumbar Spine Range of Motion Lumbar Spine Active Testing Position Standing ROM Limitations Pain Comments moderate decrease all motions. Hip Goniometric Range of Motion Hip saad Hip ROM WFL Yes PT-OP-Q Treatments Start: 07/02/20 12:11 Freq: Status: Active Protocol: Document 07/04/20 16:27 [facility] (Rec: 07/04/20 16:36 [facility] [id number]) Therapeutic Exercises Supine Exercises gluteal sets Reps/Minutes 10x hip ab/ER with TB Resistance L2 TB Reps/Minutes 10x pillow squeeze Reps/Minutes 10x TrA Reps/Minutes 10x Comments verbal and manual cues Manual Therapy Treatment Manual Traction Lumbar Body Position Hooklying Reps/Duration 15 Comments gentle PT-OP-R Modalities Start: 07/02/20 12:11 Freq: Status: Active Protocol: Document 07/04/20 16:27 [facility] (Rec: 07/04/20 16:36 [facility] [id number]) Hot Pack/Cold Pack Treatment Hot Pack Location lumbar spine Patient Position Hooklying Treatment Duration (minutes) 15 Patient Tolerance Good PT-OP-T Assessment and Plan Start: 07/02/20 12:11 Freq: Status: Active Protocol: Document 07/04/20 16:27 [facility] (Rec: 07/04/20 16:36 [facility] [id number]) Physical Therapy Assessment Goals Four Impairment muscle weakness core and LE's Wine Merchant Goal (LTG) Patient to be independent in HEP for purposes of core and LE strengthening, will demonstrate good activation of core musculature, and LE muscle strength will increase to 5/5 LTG Duration 09/02/20 Three Impairment gait dysfunction, unable to walk greater than 1-2 min Detention Goal (LTG) Patient will be able to ambulate at least 15 min without increase in symptoms or leg giving way LTG Duration 09/02/20 Two Impairment pain left LE 5/10 pain scale Detention Goal (LTG) Decrease pain in left LE and lumbar spine to no greater than 2/10 during all usual activities LTG Duration 09/02/20 One Impairment activity tolerance: Oswestry disability Index score 34% Wine Merchant Goal (LTG) Improve activity tolerance as evidenced by decrease in Oswestry disability index score to no greater than 15% LTG Duration 09/02/20 Assessment Summary Assessment Patient symptoms decreased with manual lumbar traction. Unable to palpate TrA activation, patient reluctant to do much core ex due to hernia but shadia gentle supine ex well. Refused recumbent elliptical today. Physical Therapy Plan Frequency and Duration Frequency of Treatment 2x/Week Duration of Treatment 8 wks Plan of Care Start Date 07/02/20 Plan of Care End Date 09/02/20 Therapeutic Interventions Therapeutic Interventions Aquatic Therapy,Home Exercise Program,Manual Therapy, Neuromuscular Re-education, Patient/Caregiver Education, Self-Care/Home Management,Soft Tissue Mobilization,Taping, Therapeutic Activities, Therapeutic Exercises Modalities Cold Pack/Ice Massage,Electric Stimulation,Hot Packs Next Visit Focus/Plan Next Note Type Treatment Note Next Visit Plan Assess response to today's treatment. Recumbant elliptical if tolerated. Progress ther ex as tolerated, patient best tolerance for flexion ex and positioning.
--- NOTE | 2020-07-09 13:42 | PT.OTN ---
Current Diagnoses Sciatica, unspecified side (07/09/20) Weakness (07/09/20) History of falling (07/09/20) Physical Therapy Treatment Note PT-OP-A Visit Information Start: 07/02/20 12:11 Freq: Status: Active Protocol: Document 07/09/20 12:56 [facility] (Rec: 07/09/20 13:42 [facility] [id number]) Out-Patient Physical Therapy Visit Information Visit Information Visit Type Treatment Note Visit Start Time 13:00 Total Visit Minutes 45 Visit Number 3 Number of HOUSETRAILER SERVICER Visits 0 Precautions Precautions esophageal cancer PT-OP-B Current Condition Start: 07/02/20 12:11 Freq: Status: Active Protocol: Document 07/02/20 13:00 [facility] (Rec: 07/02/20 13:47 [facility] [id number]) Current Condition History of Current Condition Onset Date 15 year Current Complaints LE pain left greater than right History of Current Condition 15 years ago back injury due to lifting. 1 year ago progressive worsening especially left LE; symptoms as 15 years ago. Has fallen 3 times over past 3 months due to pain. New development of hernia noticed a couple weeks ago, some pain constantly. LE pain goes away 10-15 min after sitting, has to sit immediately sometimes otherwise will drop. Has numbness and tingling when the pain at its worst. Uses cane for gait, uses in right hand. Symptoms worsened after chemotherapy. Prior Treatments and Tests esophageal cancer. Has appointment tomorrow with oncologist. Hernia may be due to prior surgery for feeding tube. Undergoing chemo, 3 wks ago finished radiation. Lumbar spine x-ray 01/25/20: Mild to moderate degenerative disc disease as discussed without subluxation or trauma. Spinal or foraminal stenosis is not found. Future Testing and Treatments Planned oncologist tomorrow. Treatment Goals Patient/Caregiver Goals decrease pain, eliminate falls Prior Functional Status Baseline Function- ADL's Independent Baseline Function- Mobility Independent Baseline Function- Gait no device Baseline Function- Recreation/Hobbies fishing and crabbing; able Current Functional Impairments (Reported) Functional Limitations- ADL's painful, modified Functional Limitations- Mobility/Gait limited due to pain and fear of falling Functional Limitations- Recreation/ unable to go fishing or Hobbies crabbing PT-OP-C Subjective Start: 07/02/20 12:11 Freq: Status: Active Protocol: Document 07/09/20 12:56 [facility] (Rec: 07/09/20 13:42 [facility] [id number]) OP-PT Subjective Patient Comments Patient Comments Feeling quite a bit better, less pain and tingling after last session PT-OP-G Mobility & Gait Start: 07/02/20 12:11 Freq: Status: Active Protocol: Document 07/02/20 13:00 [facility] (Rec: 07/04/20 09:41 [facility] [id number]) OP Gait Assessment Gait Gait Assistance Required: Independent Assistive Devices Assistive Device Straight Cane Orthotic/Prosthetic Devices or Brace: No Gait Deviations General Gait Pattern Antalgic,Decreased Stride Length,Decreased Feet Clearance,Flexed Trunk,Wide Based Gait Factors Limiting Gait Function Factors Limiting Gait Function Decreased Strength,Pain PT-OP-J Posture/Palpation/Skin Start: 07/02/20 12:11 Freq: Status: Active Protocol: Document 07/02/20 13:00 [facility] (Rec: 07/04/20 09:41 [facility] [id number]) Posture Evaluation Position Standing Head/C-Spine Posture Forward Head T-Spine Posture Increased Kyphosis L-Spine Posture Flattened Pelvis Posture Posterior Tilted Weight Distribution Weight Shifted Right Hip Posture (L) Externally Rotated,(R) Externally Rotated Knee Posture (L) Excess Flexion,(R) Excess Flexion Ankle/Foot Posture (L) Forefoot Eversion,(R) Forefoot Eversion Palpation Assessment Location lumbar spine Palpation Location saad l/s left greater than right Palpation Findings Tenderness left LE Palpation Location throughout thigh anterior andposterior Palpation Findings Tenderness Skin Assessment Other Assessments Skin Assessment Comments skin intact, no edema, no increase in warmth PT-OP-K Range of Motion Start: 07/02/20 12:11 Freq: Status: Active Protocol: Document 07/02/20 13:00 [facility] (Rec: 07/04/20 09:41 [facility] [id number]) Lumbar Spine Range of Motion Lumbar Spine Active Testing Position Standing ROM Limitations Pain Comments moderate decrease all motions. Hip Goniometric Range of Motion Hip saad Hip ROM WFL Yes PT-OP-Q Treatments Start: 07/02/20 12:11 Freq: Status: Active Protocol: Document 07/09/20 12:56 [facility] (Rec: 07/09/20 13:42 [facility] [id number]) Cardio Equipment Recumbent Elliptical (Chirpify) Duration (Minutes) 5 Resistance 1 Seat Position 7 Therapeutic Exercises Supine Exercises double knee to chest Reps/Minutes 2x30 gluteal sets Reps/Minutes 10x2 hip ab/ER with TB Resistance L2 TB Equipment Used 2 Reps/Minutes 10x pillow squeeze Reps/Minutes 10x2 TrA Reps/Minutes 10x2 Comments verbal and manual cues (gut punch best) Manual Therapy Treatment Manual Traction Lumbar Body Position Hooklying Reps/Duration 15 Comments gentle with moist heat Self-Care/Home Management Treatment Activities Self-Care/Home Management Activities seated spinal decompression with chair push-up PT-OP-R Modalities Start: 07/02/20 12:11 Freq: Status: Active Protocol: Document 07/09/20 12:56 [facility] (Rec: 07/09/20 13:42 [facility] [id number]) Hot Pack/Cold Pack Treatment Hot Pack Location lumbar spine Patient Position Hooklying Treatment Duration (minutes) 15 Patient Tolerance Good Comments during manual traction PT-OP-T Assessment and Plan Start: 07/02/20 12:11 Freq: Status: Active Protocol: Document 07/09/20 12:56 [facility] (Rec: 07/09/20 13:42 [facility] [id number]) Physical Therapy Assessment Goals Four Impairment muscle weakness core and LE's [facility] Goal (LTG) Patient to be independent in HEP for purposes of core and LE strengthening, will demonstrate good activation of core musculature, and LE muscle strength will increase to 5/5 LTG Duration 09/02/20 Three Impairment gait dysfunction, unable to walk greater than 1-2 min Paleontology Teacher Goal (LTG) Patient will be able to ambulate at least 15 min without increase in symptoms or leg giving way LTG Duration 09/02/20 Two Impairment pain left LE 5/10 pain scale Paleontology Teacher Goal (LTG) Decrease pain in left LE and lumbar spine to no greater than 2/10 during all usual activities LTG Duration 09/02/20 One Impairment activity tolerance: Oswestry disability Index score 34% Nursing Home Goal (LTG) Improve activity tolerance as evidenced by decrease in Oswestry disability index score to no greater than 15% LTG Duration 09/02/20 Assessment Summary Assessment Good response to last treatment. Tolerated 3 min on Biodex today. Compliant to HEP. Able to tolerate 2 sets of ther ex today; 1x prior and 1x after manual traction. Physical Therapy Plan Frequency and Duration Frequency of Treatment 2x/Week Duration of Treatment 8 wks Plan of Care Start Date 07/02/20 Plan of Care End Date 09/02/20 Therapeutic Interventions Therapeutic Interventions Aquatic Therapy,Home Exercise Program,Manual Therapy, Neuromuscular Re-education, Patient/Caregiver Education, Self-Care/Home Management,Soft Tissue Mobilization,Taping, Therapeutic Activities, Therapeutic Exercises Modalities Cold Pack/Ice Massage,Electric Stimulation,Hot Packs Next Visit Focus/Plan Next Note Type Treatment Note Next Visit Plan Continue gentle ther ex progression, manual traction, modalities to decrease heat, improve function.
--- NOTE | 2020-07-11 13:48 | PT.OTN ---
Current Diagnoses Sciatica, unspecified side (07/11/20) Weakness (07/11/20) History of falling (07/11/20) Physical Therapy Treatment Note PT-OP-A Visit Information Start: 07/02/20 12:11 Freq: Status: Active Protocol: Document 07/11/20 12:59 [facility] (Rec: 07/11/20 13:48 [facility] [id number]) Out-Patient Physical Therapy Visit Information Visit Information Visit Type Treatment Note Visit Start Time 13:00 Visit Stop Time 01:34 Total Visit Minutes 45 Visit Number 4 Number of MEAT BUTCHER Visits 0 Precautions Precautions esophageal cancer PT-OP-B Current Condition Start: 07/02/20 12:11 Freq: Status: Active Protocol: Document 07/02/20 13:00 [facility] (Rec: 07/02/20 13:47 [facility] [id number]) Current Condition History of Current Condition Onset Date 15 year Current Complaints LE pain left greater than right History of Current Condition 15 years ago back injury due to lifting. 1 year ago progressive worsening especially left LE; symptoms as 15 years ago. Has fallen 3 times over past 3 months due to pain. New development of hernia noticed a couple weeks ago, some pain constantly. LE pain goes away 10-15 min after sitting, has to sit immediately sometimes otherwise will drop. Has numbness and tingling when the pain at its worst. Uses cane for gait, uses in right hand. Symptoms worsened after chemotherapy. Prior Treatments and Tests esophageal cancer. Has appointment tomorrow with oncologist. Hernia may be due to prior surgery for feeding tube. Undergoing chemo, 3 wks ago finished radiation. Lumbar spine x-ray 01/25/20: Mild to moderate degenerative disc disease as discussed without subluxation or trauma. Spinal or foraminal stenosis is not found. Future Testing and Treatments Planned oncologist tomorrow. Treatment Goals Patient/Caregiver Goals decrease pain, eliminate falls Prior Functional Status Baseline Function- ADL's Independent Baseline Function- Mobility Independent Baseline Function- Gait no device Baseline Function- Recreation/Hobbies fishing and crabbing; able Current Functional Impairments (Reported) Functional Limitations- ADL's painful, modified Functional Limitations- Mobility/Gait limited due to pain and fear of falling Functional Limitations- Recreation/ unable to go fishing or Hobbies crabbing PT-OP-C Subjective Start: 07/02/20 12:11 Freq: Status: Active Protocol: Document 07/11/20 12:59 [facility] (Rec: 07/11/20 13:48 [facility] [id number]) OP-PT Subjective Patient Comments Patient Comments [place] good after last session; much better. PT-OP-G Mobility & Gait Start: 07/02/20 12:11 Freq: Status: Active Protocol: Document 07/02/20 13:00 [facility] (Rec: 07/04/20 09:41 [facility] [id number]) OP Gait Assessment Gait Gait Assistance Required: Independent Assistive Devices Assistive Device Straight Cane Orthotic/Prosthetic Devices or Brace: No Gait Deviations General Gait Pattern Antalgic,Decreased Stride Length,Decreased Feet Clearance,Flexed Trunk,Wide Based Gait Factors Limiting Gait Function Factors Limiting Gait Function Decreased Strength,Pain PT-OP-J Posture/Palpation/Skin Start: 07/02/20 12:11 Freq: Status: Active Protocol: Document 07/02/20 13:00 [facility] (Rec: 07/04/20 09:41 [facility] [id number]) Posture Evaluation Position Standing Head/C-Spine Posture Forward Head T-Spine Posture Increased Kyphosis L-Spine Posture Flattened Pelvis Posture Posterior Tilted Weight Distribution Weight Shifted Right Hip Posture (L) Externally Rotated,(R) Externally Rotated Knee Posture (L) Excess Flexion,(R) Excess Flexion Ankle/Foot Posture (L) Forefoot Eversion,(R) Forefoot Eversion Palpation Assessment Location lumbar spine Palpation Location saad l/s left greater than right Palpation Findings Tenderness left LE Palpation Location throughout thigh anterior andposterior Palpation Findings Tenderness Skin Assessment Other Assessments Skin Assessment Comments skin intact, no edema, no increase in warmth PT-OP-K Range of Motion Start: 07/02/20 12:11 Freq: Status: Active Protocol: Document 07/02/20 13:00 [facility] (Rec: 07/04/20 09:41 [facility] [id number]) Lumbar Spine Range of Motion Lumbar Spine Active Testing Position Standing ROM Limitations Pain Comments moderate decrease all motions. Hip Goniometric Range of Motion Hip saad Hip ROM WFL Yes PT-OP-Q Treatments Start: 07/02/20 12:11 Freq: Status: Active Protocol: Document 07/11/20 12:59 [facility] (Rec: 07/11/20 13:48 [facility] [id number]) Cardio Equipment Recumbent Elliptical (Auctomatic) Duration (Minutes) 7 Resistance 1 Seat Position 8 Therapeutic Exercises Supine Exercises double knee to chest Reps/Minutes 2x30 gluteal sets Reps/Minutes 10x2 hip ab/ER with TB Resistance L2 TB Equipment Used 2 Reps/Minutes 15x pillow squeeze Reps/Minutes 15x2 TrA Supine Exercise Name with breath Reps/Minutes 10x2 Comments verbal and manual cues (gut punch best visual) Standing Exercises row Resistance L1 TB Reps/Minutes 10x shoulder extension Resistance L1 TB Reps/Minutes 10x squats Reps/Minutes 10x Manual Therapy Treatment Manual Traction Lumbar Details 30 holds, 10 sec release Body Position Hooklying Reps/Duration 15 Comments gentle with moist heat Self-Care/Home Management Treatment Activities Self-Care/Home Management Activities seated spinal decompression with chair push-up PT-OP-R Modalities Start: 07/02/20 12:11 Freq: Status: Active Protocol: Document 07/11/20 12:59 [facility] (Rec: 07/11/20 13:48 [facility] [id number]) Hot Pack/Cold Pack Treatment Hot Pack Location lumbar spine Patient Position Hooklying Treatment Duration (minutes) 15 Patient Tolerance Good Comments during manual traction PT-OP-T Assessment and Plan Start: 07/02/20 12:11 Freq: Status: Active Protocol: Document 07/11/20 12:59 [facility] (Rec: 07/11/20 13:48 [facility] [id number]) Physical Therapy Assessment Goals Four Impairment muscle weakness core and LE's Transitional Kindergarten Teacher Goal (LTG) Patient to be independent in HEP for purposes of core and LE strengthening, will demonstrate good activation of core musculature, and LE muscle strength will increase to 5/5 LTG Duration 09/02/20 Three Impairment gait dysfunction, unable to walk greater than 1-2 min Transitional Kindergarten Teacher Goal (LTG) Patient will be able to ambulate at least 15 min without increase in symptoms or leg giving way LTG Duration 09/02/20 Two Impairment pain left LE 5/10 pain scale Transitional Kindergarten Teacher Goal (LTG) Decrease pain in left LE and lumbar spine to no greater than 2/10 during all usual activities LTG Duration 09/02/20 One Impairment activity tolerance: Oswestry disability Index score 34% Half-Way Goal (LTG) Improve activity tolerance as evidenced by decrease in Oswestry disability index score to no greater than 15% LTG Duration 09/02/20 Assessment Summary Assessment Continues to benefit from PT with decreased pain and radicular symptoms. Needs cues to increase weight-bearing on left LE with gait and with added squats today. Able to increase Biodex to 7 min. Physical Therapy Plan Frequency and Duration Frequency of Treatment 2x/Week Duration of Treatment 8 wks Plan of Care Start Date 07/02/20 Plan of Care End Date 09/02/20 Therapeutic Interventions Therapeutic Interventions Aquatic Therapy,Home Exercise Program,Manual Therapy, Neuromuscular Re-education, Patient/Caregiver Education, Self-Care/Home Management,Soft Tissue Mobilization,Taping, Therapeutic Activities, Therapeutic Exercises Modalities Cold Pack/Ice Massage,Electric Stimulation,Hot Packs Next Visit Focus/Plan Next Note Type Treatment Note Next Visit Plan Continue gentle ther ex progression, manual traction, modalities to decrease heat, improve function. Consider use of mechanical traction. Add postural isometric, starting in supine.
--- NOTE | 2020-07-18 10:49 | PT.OTN ---
Current Diagnoses Sciatica, unspecified side (07/18/20) Weakness (07/18/20) History of falling (07/18/20) Physical Therapy Treatment Note PT-OP-A Visit Information Start: 07/02/20 12:11 Freq: Status: Active Protocol: Document 07/18/20 09:43 [facility] (Rec: 07/18/20 09:43 [facility] [id number]) Out-Patient Physical Therapy Visit Information Visit Information Visit Type Treatment Note Visit Start Time 09:45 Visit Stop Time 10:30 Total Visit Minutes 45 Visit Number 5 Number of HEALTH/SAFETY JOB TITLES Visits 0 PT-OP-B Current Condition Start: 07/02/20 12:11 Freq: Status: Active Protocol: Document 07/02/20 13:00 [facility] (Rec: 07/02/20 13:47 [facility] [id number]) Current Condition History of Current Condition Onset Date 15 year Current Complaints LE pain left greater than right History of Current Condition 15 years ago back injury due to lifting. 1 year ago progressive worsening especially left LE; symptoms as 15 years ago. Has fallen 3 times over past 3 months due to pain. New development of hernia noticed a couple weeks ago, some pain constantly. LE pain goes away 10-15 min after sitting, has to sit immediately sometimes otherwise will drop. Has numbness and tingling when the pain at its worst. Uses cane for gait, uses in right hand. Symptoms worsened after chemotherapy. Prior Treatments and Tests esophageal cancer. Has appointment tomorrow with oncologist. Hernia may be due to prior surgery for feeding tube. Undergoing chemo, 3 wks ago finished radiation. Lumbar spine x-ray 01/25/20: Mild to moderate degenerative disc disease as discussed without subluxation or trauma. Spinal or foraminal stenosis is not found. Future Testing and Treatments Planned oncologist tomorrow. Treatment Goals Patient/Caregiver Goals decrease pain, eliminate falls Prior Functional Status Baseline Function- ADL's Independent Baseline Function- Mobility Independent Baseline Function- Gait no device Baseline Function- Recreation/Hobbies fishing and crabbing; able Current Functional Impairments (Reported) Functional Limitations- ADL's painful, modified Functional Limitations- Mobility/Gait limited due to pain and fear of falling Functional Limitations- Recreation/ unable to go fishing or Hobbies crabbing PT-OP-C Subjective Start: 07/02/20 12:11 Freq: Status: Active Protocol: Document 07/18/20 09:47 [facility] (Rec: 07/18/20 09:48 [facility] [id number]) OP-PT Subjective Patient Comments Patient Comments pt reports massage and the heat has helped him the most so far. No complaints of sciatic pain so far today. Pain usually starts mid moring around 9ish. He wakes up at 4 am Patient Reported Progress Improving PT-OP-G Mobility & Gait Start: 07/02/20 12:11 Freq: Status: Active Protocol: Document 07/02/20 13:00 [facility] (Rec: 07/04/20 09:41 [facility] [id number]) OP Gait Assessment Gait Gait Assistance Required: Independent Assistive Devices Assistive Device Straight Cane Orthotic/Prosthetic Devices or Brace: No Gait Deviations General Gait Pattern Antalgic,Decreased Stride Length,Decreased Feet Clearance,Flexed Trunk,Wide Based Gait Factors Limiting Gait Function Factors Limiting Gait Function Decreased Strength,Pain PT-OP-J Posture/Palpation/Skin Start: 07/02/20 12:11 Freq: Status: Active Protocol: Document 07/02/20 13:00 [facility] (Rec: 07/04/20 09:41 [facility] [id number]) Posture Evaluation Position Standing Head/C-Spine Posture Forward Head T-Spine Posture Increased Kyphosis L-Spine Posture Flattened Pelvis Posture Posterior Tilted Weight Distribution Weight Shifted Right Hip Posture (L) Externally Rotated,(R) Externally Rotated Knee Posture (L) Excess Flexion,(R) Excess Flexion Ankle/Foot Posture (L) Forefoot Eversion,(R) Forefoot Eversion Palpation Assessment Location lumbar spine Palpation Location saad l/s left greater than right Palpation Findings Tenderness left LE Palpation Location throughout thigh anterior andposterior Palpation Findings Tenderness Skin Assessment Other Assessments Skin Assessment Comments skin intact, no edema, no increase in warmth PT-OP-K Range of Motion Start: 07/02/20 12:11 Freq: Status: Active Protocol: Document 07/02/20 13:00 [facility] (Rec: 07/04/20 09:41 [facility] [id number]) Lumbar Spine Range of Motion Lumbar Spine Active Testing Position Standing ROM Limitations Pain Comments moderate decrease all motions. Hip Goniometric Range of Motion Hip saad Hip ROM WFL Yes PT-OP-Q Treatments Start: 07/02/20 12:11 Freq: Status: Active Protocol: Document 07/18/20 09:49 [facility] (Rec: 07/18/20 10:33 [facility] [id number]) Cardio Equipment Recumbent Elliptical (Biodex) Duration (Minutes) 7 Resistance 1 Seat Position 8 Therapeutic Exercises Supine Exercises piriformis stretch Supine Exercise Name piriformis stretch Reps/Minutes 2 x 30 seconds single knee to chest Supine Exercise Name single knee to chest with opposite leg straight Reps/Minutes 2 x 30 seconds double knee to chest Reps/Minutes 2x30 TrA Side bilateral Reps/Minutes 10 TA contractions holding 5 seconds Comments pt educated on TA contraction with a exhale, this was difficult for him Self-Care/Home Management Treatment Education Other Education pt educated in use of miracle balls on either side of the sacrum. He has tennis balls at home to use. He states this position has taken away the pain from the hernia. PT-OP-R Modalities Start: 07/02/20 12:11 Freq: Status: Active Protocol: Document 07/18/20 10:48 [facility] (Rec: 07/18/20 10:49 [facility] [id number]) Hot Pack/Cold Pack Treatment Hot Pack Location lumbar spine Patient Position Hooklying Treatment Duration (minutes) 12 Patient Tolerance Good Comments with low back stretching exercises PT-OP-T Assessment and Plan Start: 07/02/20 12:11 Freq: Status: Active Protocol: Document 07/18/20 10:36 [facility] (Rec: 07/18/20 10:48 [facility] [id number]) Physical Therapy Assessment Assessment Summary Assessment Pt did really well with the miracle balls under the SAMANTA's of the sacrum on either side to release the piriformis. He noted in this position he had no pain in the area of his hernia. He has tennis balls at home he will try. Sciatic symptoms decreased today, pt not doing a lot of stretches at home but I really encouraged him today to start working on 5-10 minutes per day of stretching. Physical Therapy Plan Frequency and Duration Frequency of Treatment 2x/Week Duration of Treatment 8 wks Plan of Care Start Date 07/02/20 Plan of Care End Date 09/02/20 Therapeutic Interventions Therapeutic Interventions Aquatic Therapy,Home Exercise Program,Manual Therapy, Neuromuscular Re-education, Patient/Caregiver Education, Self-Care/Home Management,Soft Tissue Mobilization,Taping, Therapeutic Activities, Therapeutic Exercises Modalities Cold Pack/Ice Massage,Electric Stimulation,Hot Packs Next Visit Focus/Plan Next Note Type Treatment Note Next Visit Plan continue to work on exercise progression, NMRE for transverse abdominal muscle, releasing the piriformis, manual traction and modalities to decrease pain.
--- NOTE | 2020-07-24 16:34 | PT.OTN ---
Current Diagnoses Sciatica, unspecified side (07/24/20) Weakness (07/24/20) History of falling (07/24/20) Physical Therapy Treatment Note PT-OP-A Visit Information Start: 07/02/20 12:11 Freq: Status: Active Protocol: Document 07/24/20 10:28 [facility] (Rec: 07/24/20 11:[address] [facility] [id number]) Out-Patient Physical Therapy Visit Information Visit Information Visit Type Treatment Note Visit Start Time 10:30 Visit Stop Time 11:20 Total Visit Minutes 50 Visit Number 6 Number of [employer] Visits 0 PT-OP-B Current Condition Start: 07/02/20 12:11 Freq: Status: Active Protocol: Document 07/02/20 13:00 [facility] (Rec: 07/02/20 13:47 [facility] [id number]) Current Condition History of Current Condition Onset Date 15 year Current Complaints LE pain left greater than right History of Current Condition 15 years ago back injury due to lifting. 1 year ago progressive worsening especially left LE; symptoms as 15 years ago. Has fallen 3 times over past 3 months due to pain. New development of hernia noticed a couple weeks ago, some pain constantly. LE pain goes away 10-15 min after sitting, has to sit immediately sometimes otherwise will drop. Has numbness and tingling when the pain at its worst. Uses cane for gait, uses in right hand. Symptoms worsened after chemotherapy. Prior Treatments and Tests esophageal cancer. Has appointment tomorrow with oncologist. Hernia may be due to prior surgery for feeding tube. Undergoing chemo, 3 wks ago finished radiation. Lumbar spine x-ray 01/25/20: Mild to moderate degenerative disc disease as discussed without subluxation or trauma. Spinal or foraminal stenosis is not found. Future Testing and Treatments Planned oncologist tomorrow. Treatment Goals Patient/Caregiver Goals decrease pain, eliminate falls Prior Functional Status Baseline Function- ADL's Independent Baseline Function- Mobility Independent Baseline Function- Gait no device Baseline Function- Recreation/Hobbies fishing and crabbing; able Current Functional Impairments (Reported) Functional Limitations- ADL's painful, modified Functional Limitations- Mobility/Gait limited due to pain and fear of falling Functional Limitations- Recreation/ unable to go fishing or Hobbies crabbing PT-OP-C Subjective Start: 07/02/20 12:11 Freq: Status: Active Protocol: Document 07/24/20 10:[address] [facility] (Rec: 07/24/20 11:[address] [facility] [id number]) OP-PT Subjective Patient Comments Patient Comments States I'm just happy to be up off the couch, which I couldn't do 3 months ago. Reports feeling stronger. Liked the Miracle Balls used last session for both LBP and hernia pain. PT-OP-G Mobility & Gait Start: 07/02/20 12:11 Freq: Status: Active Protocol: Document 07/02/20 13:[address] [facility] (Rec: 07/04/20 09:[address] [facility] [id number]) OP Gait Assessment Gait Gait Assistance Required: Independent Assistive Devices Assistive Device Straight Cane Orthotic/Prosthetic Devices or Brace: No Gait Deviations General Gait Pattern Antalgic,Decreased Stride Length,Decreased Feet Clearance,Flexed Trunk,Wide Based Gait Factors Limiting Gait Function Factors Limiting Gait Function Decreased Strength,Pain PT-OP-J Posture/Palpation/Skin Start: 07/02/20 12:11 Freq: Status: Active Protocol: Document 07/02/20 13:[address] [facility] (Rec: 07/04/20 09:[address] [facility] [id number]) Posture Evaluation Position Standing Head/C-Spine Posture Forward Head T-Spine Posture Increased Kyphosis L-Spine Posture Flattened Pelvis Posture Posterior Tilted Weight Distribution Weight Shifted Right Hip Posture (L) Externally Rotated,(R) Externally Rotated Knee Posture (L) Excess Flexion,(R) Excess Flexion Ankle/Foot Posture (L) Forefoot Eversion,(R) Forefoot Eversion Palpation Assessment Location lumbar spine Palpation Location saad l/s left greater than right Palpation Findings Tenderness left LE Palpation Location throughout thigh anterior andposterior Palpation Findings Tenderness Skin Assessment Other Assessments Skin Assessment Comments skin intact, no edema, no increase in warmth PT-OP-K Range of Motion Start: 07/02/20 12:11 Freq: Status: Active Protocol: Document 07/02/20 13:[address] [facility] (Rec: 07/04/20 09:[address] [facility] [id number]) Lumbar Spine Range of Motion Lumbar Spine Active Testing Position Standing ROM Limitations Pain Comments moderate decrease all motions. Hip Goniometric Range of Motion Hip saad Hip ROM WFL Yes PT-OP-Q Treatments Start: 07/02/20 12:11 Freq: Status: Active Protocol: Document 07/24/20 10:[address] [facility] (Rec: 07/24/20 11:[address] [facility] [id number]) Cardio Equipment Recumbent Stepper (Sci-Fit) Duration (Minutes) 8 Resistance 2 Seat Position 10 Gym Equipment Shuttle Recovery Bilateral Squats Resistance 50 Shuttle Recovery Platform Stable Therapeutic Exercises Supine Exercises HS stretch Reps/Minutes 2x30 piriformis stretch Supine Exercise Name piriformis stretch Reps/Minutes 2 x 30 seconds single knee to chest Supine Exercise Name single knee to chest with opposite leg straight Reps/Minutes 2 x 30 seconds double knee to chest Reps/Minutes 2x30 TrA Side bilateral Reps/Minutes 10 TA contractions holding 5 seconds Manual Therapy Treatment Soft Tissue Mobilization lumbar spine, piriformis Intensity/Depth Moderate Body Position Supine Comments Miracle balls Self-Care/Home Management Treatment Education Other Education issued information about obtaining Miracle Balls. PT-OP-R Modalities Start: 07/02/20 12:11 Freq: Status: Active Protocol: Document 07/24/20 10:[address] [facility] (Rec: 07/24/20 11:[address] [facility] [id number]) Electric Stimulation Electric Stimulation Interferential Current (IFC) Body Location saad lumbar spine Duration (Minutes) 15 Intensity 20 Target/Sweep Sweep Patient Position Hooklying Combined With Heat/Cold Hot Pack PT-OP-T Assessment and Plan Start: 07/02/20 12:11 Freq: Status: Active Protocol: Document 07/24/20 10:[address] [facility] (Rec: 07/24/20 11:[address] [facility] [id number]) Physical Therapy Assessment Goals Four Impairment muscle weakness core and LE's Halfway Goal (LTG) Patient to be independent in HEP for purposes of core and LE strengthening, will demonstrate good activation of core musculature, and LE muscle strength will increase to 5/5 LTG Duration 09/02/20 Three Impairment gait dysfunction, unable to walk greater than 1-2 min Halfway Goal (LTG) Patient will be able to ambulate at least 15 min without increase in symptoms or leg giving way LTG Duration 09/02/20 Two Impairment pain left LE 5/10 pain scale Halfway Goal (LTG) Decrease pain in left LE and lumbar spine to no greater than 2/10 during all usual activities LTG Duration 09/02/20 One Impairment activity tolerance: Oswestry disability Index score 34% Halfway Goal (LTG) Improve activity tolerance as evidenced by decrease in Oswestry disability index score to no greater than 15% LTG Duration 09/02/20 Assessment Summary Assessment Patient reports improving strength, demonstrating improved activity tolerance. Limite in core strengthening or stab ability due to hernia, continues to wear binder. Decreased pain with IFES and moist heat. Physical Therapy Plan Frequency and Duration Frequency of Treatment 2x/Week Duration of Treatment 8 wks Plan of Care Start Date 07/02/20 Plan of Care End Date 09/02/20 Therapeutic Interventions Therapeutic Interventions Aquatic Therapy,Home Exercise Program,Manual Therapy, Neuromuscular Re-education, Patient/Caregiver Education, Self-Care/Home Management,Soft Tissue Mobilization,Taping, Therapeutic Activities, Therapeutic Exercises Modalities Cold Pack/Ice Massage,Electric Stimulation,Hot Packs Next Visit Focus/Plan Next Note Type Treatment Note Next Visit Plan continue to work on exercise progression, NMRE for transverse abdominal muscle, releasing the piriformis, manual traction and modalities to decrease pain.
--- NOTE | 2020-07-26 11:17 | PT.OTN ---
Current Diagnoses Sciatica, unspecified side (07/26/20) Weakness (07/26/20) History of falling (07/26/20) Physical Therapy Treatment Note PT-OP-A Visit Information Start: 07/02/20 12:11 Freq: Status: Active Protocol: Document 07/26/20 10:33 [facility] (Rec: 07/26/20 11:17 [facility] [id number]) Out-Patient Physical Therapy Visit Information Visit Information Visit Type Treatment Note Visit Start Time 10:33 Visit Stop Time 11:27 Total Visit Minutes 54 Visit Number 7 Number of ELEMENT SETTER Visits 0 PT-OP-B Current Condition Start: 07/02/20 12:11 Freq: Status: Active Protocol: Document 07/02/20 13:00 [facility] (Rec: 07/02/20 13:47 [facility] [id number]) Current Condition History of Current Condition Onset Date 15 year Current Complaints LE pain left greater than right History of Current Condition 15 years ago back injury due to lifting. 1 year ago progressive worsening especially left LE; symptoms as 15 years ago. Has fallen 3 times over past 3 months due to pain. New development of hernia noticed a couple weeks ago, some pain constantly. LE pain goes away 10-15 min after sitting, has to sit immediately sometimes otherwise will drop. Has numbness and tingling when the pain at its worst. Uses cane for gait, uses in right hand. Symptoms worsened after chemotherapy. Prior Treatments and Tests esophageal cancer. Has appointment tomorrow with oncologist. Hernia may be due to prior surgery for feeding tube. Undergoing chemo, 3 wks ago finished radiation. Lumbar spine x-ray 01/25/20: Mild to moderate degenerative disc disease as discussed without subluxation or trauma. Spinal or foraminal stenosis is not found. Future Testing and Treatments Planned oncologist tomorrow. Treatment Goals Patient/Caregiver Goals decrease pain, eliminate falls Prior Functional Status Baseline Function- ADL's Independent Baseline Function- Mobility Independent Baseline Function- Gait no device Baseline Function- Recreation/Hobbies fishing and crabbing; able Current Functional Impairments (Reported) Functional Limitations- ADL's painful, modified Functional Limitations- Mobility/Gait limited due to pain and fear of falling Functional Limitations- Recreation/ unable to go fishing or Hobbies crabbing PT-OP-C Subjective Start: 07/02/20 12:11 Freq: Status: Active Protocol: Document 07/26/20 10:33 [facility] (Rec: 07/26/20 11:17 [facility] [id number]) OP-PT Subjective Patient Comments Patient Comments Reports a little tummy ache this am. Walks 1/2 block and leg goes numb. PT-OP-G Mobility & Gait Start: 07/02/20 12:11 Freq: Status: Active Protocol: Document 07/02/20 13:00 [facility] (Rec: 07/04/20 09:41 [facility] [id number]) OP Gait Assessment Gait Gait Assistance Required: Independent Assistive Devices Assistive Device Straight Cane Orthotic/Prosthetic Devices or Brace: No Gait Deviations General Gait Pattern Antalgic,Decreased Stride Length,Decreased Feet Clearance,Flexed Trunk,Wide Based Gait Factors Limiting Gait Function Factors Limiting Gait Function Decreased Strength,Pain PT-OP-J Posture/Palpation/Skin Start: 07/02/20 12:11 Freq: Status: Active Protocol: Document 07/02/20 13:00 [facility] (Rec: 07/04/20 09:41 [facility] [id number]) Posture Evaluation Position Standing Head/C-Spine Posture Forward Head T-Spine Posture Increased Kyphosis L-Spine Posture Flattened Pelvis Posture Posterior Tilted Weight Distribution Weight Shifted Right Hip Posture (L) Externally Rotated,(R) Externally Rotated Knee Posture (L) Excess Flexion,(R) Excess Flexion Ankle/Foot Posture (L) Forefoot Eversion,(R) Forefoot Eversion Palpation Assessment Location lumbar spine Palpation Location saad l/s left greater than right Palpation Findings Tenderness left LE Palpation Location throughout thigh anterior andposterior Palpation Findings Tenderness Skin Assessment Other Assessments Skin Assessment Comments skin intact, no edema, no increase in warmth PT-OP-K Range of Motion Start: 07/02/20 12:11 Freq: Status: Active Protocol: Document 07/02/20 13:00 [facility] (Rec: 07/04/20 09:41 [facility] [id number]) Lumbar Spine Range of Motion Lumbar Spine Active Testing Position Standing ROM Limitations Pain Comments moderate decrease all motions. Hip Goniometric Range of Motion Hip saad Hip ROM WFL Yes PT-OP-Q Treatments Start: 07/02/20 12:11 Freq: Status: Active Protocol: Document 07/26/20 10:33 [facility] (Rec: 07/26/20 11:17 [facility] [id number]) Cardio Equipment Recumbent Stepper (Sci-Fit) Duration (Minutes) 8 Resistance 2 Seat Position 10 Gym Equipment Shuttle Recovery Bilateral Squats Resistance 50 Shuttle Recovery Platform Stable Reps/Time 12, Therapeutic Exercises Supine Exercises HS stretch Reps/Minutes 2x30 piriformis stretch Supine Exercise Name piriformis stretch Reps/Minutes 2 x 30 seconds single knee to chest Supine Exercise Name single knee to chest with opposite leg straight Reps/Minutes 2 x 30 seconds double knee to chest Reps/Minutes 2x30 gluteal sets Reps/Minutes 10x2 hip ab/ER with TB Resistance L2 TB Equipment Used 2 Reps/Minutes 15x pillow squeeze Reps/Minutes 15x2 Manual Therapy Treatment Manual Traction Lumbar Details 30 holds, 10 sec release Body Position Hooklying Reps/Duration 15 Comments gentle with moist heat PT-OP-R Modalities Start: 07/02/20 12:11 Freq: Status: Active Protocol: Document 07/26/20 10:33 [facility] (Rec: 07/26/20 11:17 [facility] [id number]) Electric Stimulation Electric Stimulation Interferential Current (IFC) Body Location saad lumbar spine Duration (Minutes) 17 Intensity 20 Target/Sweep Sweep Patient Position Hooklying Combined With Heat/Cold Hot Pack Hot Pack/Cold Pack Treatment Hot Pack Location lumbar spine Patient Position Hooklying Treatment Duration (minutes) 12 Patient Tolerance Good Comments with low back stretching exercises PT-OP-T Assessment and Plan Start: 07/02/20 12:11 Freq: Status: Active Protocol: Document 07/26/20 10:33 [facility] (Rec: 07/26/20 11:17 [facility] [id number]) Physical Therapy Assessment Goals Four Impairment muscle weakness core and LE's Senior Care Goal (LTG) Patient to be independent in HEP for purposes of core and LE strengthening, will demonstrate good activation of core musculature, and LE muscle strength will increase to 5/5 LTG Duration 09/02/20 Three Impairment gait dysfunction, unable to walk greater than 1-2 min Senior Care Goal (LTG) Patient will be able to ambulate at least 15 min without increase in symptoms or leg giving way LTG Duration 09/02/20 Two Impairment pain left LE 5/10 pain scale Patient Consumer Marketer Goal (LTG) Decrease pain in left LE and lumbar spine to no greater than 2/10 during all usual activities LTG Duration 09/02/20 One Impairment activity tolerance: Oswestry disability Index score 34% Senior Care Goal (LTG) Improve activity tolerance as evidenced by decrease in Oswestry disability index score to no greater than 15% LTG Duration 09/02/20 Assessment Summary Assessment Not doing as well without spinal decompression with manual lumbar Physical Therapy Plan Frequency and Duration Frequency of Treatment 2x/Week Duration of Treatment 8 wks Plan of Care Start Date 07/02/20 Plan of Care End Date 09/02/20 Therapeutic Interventions Therapeutic Interventions Aquatic Therapy,Home Exercise Program,Manual Therapy, Neuromuscular Re-education, Patient/Caregiver Education, Self-Care/Home Management,Soft Tissue Mobilization,Taping, Therapeutic Activities, Therapeutic Exercises Modalities Cold Pack/Ice Massage,Electric Stimulation,Hot Packs Next Visit Focus/Plan Next Note Type Treatment Note Next Visit Plan Continue PT per POC
--- NOTE | 2020-07-31 11:14 | PT.OTN ---
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 1 year ago progressive worsening especially left LE; symptoms as 15 years ago. Has fallen 3 times over past 3 months due to pain. New development of hernia noticed a couple weeks ago, some pain constantly. LE pain goes away 10-15 min after sitting, has to sit immediately sometimes otherwise will drop. Has numbness and tingling when the pain at its worst. Uses cane for gait, uses in right hand. Symptoms worsened after chemotherapy. Prior Treatments and Tests esophageal cancer. Has appointment tomorrow with oncologist. Hernia may be due to prior surgery for feeding tube. Undergoing chemo, 3 wks ago finished radiation. Lumbar spine x-ray 01/25/20: Mild to moderate degenerative disc disease as discussed without subluxation or trauma. Spinal or foraminal stenosis is not found. Future Testing and Treatments Planned oncologist tomorrow. Treatment Goals Patient/Caregiver Goals decrease pain, eliminate falls Prior Functional Status Baseline Function- ADL's Independent Baseline Function- Mobility Independent Baseline Function- Gait no device Baseline Function- Recreation/Hobbies fishing and crabbing; able Current Functional Impairments (Reported) Functional Limitations- ADL's painful, modified Functional Limitations- Mobility/Gait limited due to pain and fear of falling Functional Limitations- Recreation/ unable to go fishing or Hobbies crabbing PT-OP-C Subjective Start: 07/02/20 12:11 Freq: Status: Active Protocol: Document 07/31/20 10:31 [facility] (Rec: 07/31/20 11:14 [facility] [id number]) OP-PT Subjective Patient Comments Patient Comments Reports numbness better in left leg after having traction . In a bad mood today due to pension paperwork difficulties . PT-OP-G Mobility & Gait Start: 07/02/20 12:11 Freq: Status: Active Protocol: Document 07/02/20 13:00 [facility] (Rec: 07/04/20 09:41 [facility] [id number]) OP Gait Assessment Gait Gait Assistance Required: Independent Assistive Devices Assistive Device Straight Cane Orthotic/Prosthetic Devices or Brace: No Gait Deviations General Gait Pattern Antalgic,Decreased Stride Length,Decreased Feet Clearance,Flexed Trunk,Wide Based Gait Factors Limiting Gait Function Factors Limiting Gait Function Decreased Strength,Pain PT-OP-J Posture/Palpation/Skin Start: 07/02/20 12:11 Freq: Status: Active Protocol: Document 07/02/20 13:00 [facility] (Rec: 07/04/20 09:41 [facility] [id number]) Posture Evaluation Position Standing Head/C-Spine Posture Forward Head T-Spine Posture Increased Kyphosis L-Spine Posture Flattened Pelvis Posture Posterior Tilted Weight Distribution Weight Shifted Right Hip Posture (L) Externally Rotated,(R) Externally Rotated Knee Posture (L) Excess Flexion,(R) Excess Flexion Ankle/Foot Posture (L) Forefoot Eversion,(R) Forefoot Eversion Palpation Assessment Location lumbar spine Palpation Location saad l/s left greater than right Palpation Findings Tenderness left LE Palpation Location throughout thigh anterior andposterior Palpation Findings Tenderness Skin Assessment Other Assessments Skin Assessment Comments skin intact, no edema, no increase in warmth PT-OP-K Range of Motion Start: 07/02/20 12:11 Freq: Status: Active Protocol: Document 07/02/20 13:00 [facility] (Rec: 07/04/20 09:41 [facility] [id number]) Lumbar Spine Range of Motion Lumbar Spine Active Testing Position Standing ROM Limitations Pain Comments moderate decrease all motions. Hip Goniometric Range of Motion Hip saad Hip ROM WFL Yes PT-OP-Q Treatments Start: 07/02/20 12:11 Freq: Status: Active Protocol: Document 07/31/20 10:31 [facility] (Rec: 07/31/20 11:14 [facility] [id number]) Cardio Equipment Recumbent Stepper (Sci-Fit) Duration (Minutes) 8 Resistance 2 Seat Position 10 Gym Equipment Shuttle Recovery Bilateral Squats Resistance 50 Shuttle Recovery Platform Stable Reps/Time 12x2 Therapeutic Exercises Supine Exercises HS stretch Reps/Minutes 2x30 piriformis stretch Supine Exercise Name piriformis stretch Reps/Minutes 2 x 30 seconds single knee to chest Supine Exercise Name single knee to chest with opposite leg straight Reps/Minutes 2 x 30 seconds double knee to chest Reps/Minutes 2x30 gluteal sets Reps/Minutes 10x2 hip ab/ER with TB Resistance L2 TB Equipment Used 2 Reps/Minutes 15x pillow squeeze Reps/Minutes 15x2 TrA Side bilateral Reps/Minutes 10 TA contractions holding 5 seconds Manual Therapy Treatment Soft Tissue Mobilization lumbar spine, piriformis Intensity/Depth Moderate Body Position Supine Comments Miracle balls Manual Traction Lumbar Details 30 holds, 10 sec release Body Position Hooklying Reps/Duration 15 Comments gentle with moist heat PT-OP-R Modalities Start: 07/02/20 12:11 Freq: Status: Active Protocol: Document 07/31/20 10:31 TJ (Rec: 07/31/20 11:14 [facility] [id number]) Electric Stimulation Electric Stimulation Interferential Current (IFC) Body Location saad lumbar spine Duration (Minutes) 17 Intensity 20 Target/Sweep Sweep Patient Position Hooklying Combined With Heat/Cold Hot Pack Hot Pack/Cold Pack Treatment Hot Pack Location lumbar spine Patient Position Hooklying Treatment Duration (minutes) 12 Patient Tolerance Good Comments with low back stretching exercises PT-OP-T Assessment and Plan Start: 07/02/20 12:11 Freq: Status: Active Protocol: Document 07/31/20 10:31 TJ (Rec: 07/31/20 11:14 [facility] [id number]) Physical Therapy Assessment Goals Four Impairment muscle weakness core and LE's Senior Care Goal (LTG) Patient to be independent in HEP for purposes of core and LE strengthening, will demonstrate good activation of core musculature, and LE muscle strength will increase to 5/5 LTG Duration 09/02/20 Three Impairment gait dysfunction, unable to walk greater than 1-2 min Insurance Producer Goal (LTG) Patient will be able to ambulate at least 15 min without increase in symptoms or leg giving way LTG Duration 09/02/20 Two Impairment pain left LE 5/10 pain scale Senior Care Goal (LTG) Decrease pain in left LE and lumbar spine to no greater than 2/10 during all usual activities LTG Duration 09/02/20 One Impairment activity tolerance: Oswestry disability Index score 34% Senior Care Goal (LTG) Improve activity tolerance as evidenced by decrease in Oswestry disability index score to no greater than 15% LTG Duration 09/02/20 Assessment Summary Assessment Improved symptoms with manual treatment, improving activity tolerance. Physical Therapy Plan Frequency and Duration Frequency of Treatment 2x/Week Duration of Treatment 8 wks Plan of Care Start Date 07/02/20 Plan of Care End Date 09/02/20 Therapeutic Interventions Therapeutic Interventions Aquatic Therapy,Home Exercise Program,Manual Therapy, Neuromuscular Re-education, Patient/Caregiver Education, Self-Care/Home Management,Soft Tissue Mobilization,Taping, Therapeutic Activities, Therapeutic Exercises Modalities Cold Pack/Ice Massage,Electric Stimulation,Hot Packs Next Visit Focus/Plan Next Note Type Treatment Note Next Visit Plan Continue PT to decrease pain and numbness, improve strenth and activity tolerance.
--- NOTE | 2020-08-02 13:34 | PT.OTN ---
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 1 year ago progressive worsening especially left LE; symptoms as 15 years ago. Has fallen 3 times over past 3 months due to pain. New development of hernia noticed a couple weeks ago, some pain constantly. LE pain goes away 10-15 min after sitting, has to sit immediately sometimes otherwise will drop. Has numbness and tingling when the pain at its worst. Uses cane for gait, uses in right hand. Symptoms worsened after chemotherapy. Prior Treatments and Tests esophageal cancer. Has appointment tomorrow with oncologist. Hernia may be due to prior surgery for feeding tube. Undergoing chemo, 3 wks ago finished radiation. Lumbar spine x-ray 01/25/20: Mild to moderate degenerative disc disease as discussed without subluxation or trauma. Spinal or foraminal stenosis is not found. Future Testing and Treatments Planned oncologist tomorrow. Treatment Goals Patient/Caregiver Goals decrease pain, eliminate falls Prior Functional Status Baseline Function- ADL's Independent Baseline Function- Mobility Independent Baseline Function- Gait no device Baseline Function- Recreation/Hobbies fishing and crabbing; able Current Functional Impairments (Reported) Functional Limitations- ADL's painful, modified Functional Limitations- Mobility/Gait limited due to pain and fear of falling Functional Limitations- Recreation/ unable to go fishing or Hobbies crabbing PT-OP-C Subjective Start: 07/02/20 12:11 Freq: Status: Active Protocol: Document 08/02/20 10:32 [facility] (Rec: 08/02/20 11:15 [facility] [id number]) OP-PT Subjective Patient Comments Patient Comments Reports didn't have relief of symptoms after last session. Left side ok, but states the pain and numbness now on the right side. States during last session he felt like he was getting relief, but hard to explain. Trying to do the exercises, difficulty feeling his abdominals or his gluteals PT-OP-G Mobility & Gait Start: 07/02/20 12:11 Freq: Status: Active Protocol: Document 07/02/20 13:00 [facility] (Rec: 07/04/20 09:41 [facility] [id number]) OP Gait Assessment Gait Gait Assistance Required: Independent Assistive Devices Assistive Device Straight Cane Orthotic/Prosthetic Devices or Brace: No Gait Deviations General Gait Pattern Antalgic,Decreased Stride Length,Decreased Feet Clearance,Flexed Trunk,Wide Based Gait Factors Limiting Gait Function Factors Limiting Gait Function Decreased Strength,Pain PT-OP-J Posture/Palpation/Skin Start: 07/02/20 12:11 Freq: Status: Active Protocol: Document 07/02/20 13:00 [facility] (Rec: 07/04/20 09:41 [facility] [id number]) Posture Evaluation Position Standing Head/C-Spine Posture Forward Head T-Spine Posture Increased Kyphosis L-Spine Posture Flattened Pelvis Posture Posterior Tilted Weight Distribution Weight Shifted Right Hip Posture (L) Externally Rotated,(R) Externally Rotated Knee Posture (L) Excess Flexion,(R) Excess Flexion Ankle/Foot Posture (L) Forefoot Eversion,(R) Forefoot Eversion Palpation Assessment Location lumbar spine Palpation Location saad l/s left greater than right Palpation Findings Tenderness left LE Palpation Location throughout thigh anterior andposterior Palpation Findings Tenderness Skin Assessment Other Assessments Skin Assessment Comments skin intact, no edema, no increase in warmth PT-OP-K Range of Motion Start: 07/02/20 12:11 Freq: Status: Active Protocol: Document 07/02/20 13:00 [facility] (Rec: 07/04/20 09:41 [facility] [id number]) Lumbar Spine Range of Motion Lumbar Spine Active Testing Position Standing ROM Limitations Pain Comments moderate decrease all motions. Hip Goniometric Range of Motion Hip saad Hip ROM WFL Yes PT-OP-Q Treatments Start: 07/02/20 12:11 Freq: Status: Active Protocol: Document 08/02/20 10:32 [facility] (Rec: 08/02/20 11:15 SAK [id number]) Cardio Equipment Recumbent Stepper (Sci-Fit) Duration (Minutes) 8 Resistance 2 Seat Position 10 Gym Equipment Shuttle Recovery Bilateral Squats Resistance 50 Shuttle Recovery Platform Stable Reps/Time 12x2 Therapeutic Exercises Supine Exercises quad set Side right Reps/Minutes 5x Comments some symptom relief HS stretch Reps/Minutes 2x30 piriformis stretch Supine Exercise Name piriformis stretch Reps/Minutes 2 x 30 seconds single knee to chest Supine Exercise Name single knee to chest with opposite leg straight Reps/Minutes 2 x 30 seconds double knee to chest Reps/Minutes 2x30 gluteal sets Reps/Minutes 10x2 pillow squeeze Reps/Minutes 15x2 Prone Exercises prone press up Reps/Minutes 3x Comments no relief of symptoms, reported pain mid back Sitting Exercises sciatic nerve flossing Reps/Minutes 5x Manual Therapy Treatment Manual Traction Lumbar Details 30 holds, 10 sec release Body Position Hooklying Reps/Duration 15 Comments gentle with moist heat PT-OP-R Modalities Start: 07/02/20 12:11 Freq: Status: Active Protocol: Document 08/02/20 10:32 TJ (Rec: 08/02/20 11:15 [facility] [id number]) Electric Stimulation Electric Stimulation Interferential Current (IFC) Body Location saad lumbar spine Duration (Minutes) 17 Intensity 20 Target/Sweep Sweep Patient Position Hooklying Combined With Heat/Cold Hot Pack Hot Pack/Cold Pack Treatment Hot Pack Location lumbar spine Patient Position Hooklying Treatment Duration (minutes) 12 Patient Tolerance Good Comments with low back stretching exercises PT-OP-T Assessment and Plan Start: 07/02/20 12:11 Freq: Status: Active Protocol: Document 08/02/20 10:32 TJ (Rec: 08/02/20 11:15 [facility] [id number]) Physical Therapy Assessment Goals Four Impairment muscle weakness core and LE's Ward Secretary Goal (LTG) Patient to be independent in HEP for purposes of core and LE strengthening, will demonstrate good activation of core musculature, and LE muscle strength will increase to 5/5 LTG Duration 09/02/20 Three Impairment gait dysfunction, unable to walk greater than 1-2 min Ward Secretary Goal (LTG) Patient will be able to ambulate at least 15 min without increase in symptoms or leg giving way LTG Duration 09/02/20 Two Impairment pain left LE 5/10 pain scale Residential Goal (LTG) Decrease pain in left LE and lumbar spine to no greater than 2/10 during all usual activities LTG Duration 09/02/20 One Impairment activity tolerance: Oswestry disability Index score 34% Residential Goal (LTG) Improve activity tolerance as evidenced by decrease in Oswestry disability index score to no greater than 15% LTG Duration 09/02/20 Assessment Summary Assessment Mild symptom relief with manual traction, not as significant as previously, with symptoms on right vs left today. Encouraged patient to make appointment for follow up with his physician to discuss variable symptoms, potential for further imaging or treatment. No PT appointments available until August, but he will be on waiting list. To continue with HEP. Physical Therapy Plan Frequency and Duration Frequency of Treatment 2x/Week Duration of Treatment 8 wks Plan of Care Start Date 07/02/20 Plan of Care End Date 09/02/20 Therapeutic Interventions Therapeutic Interventions Aquatic Therapy,Home Exercise Program,Manual Therapy, Neuromuscular Re-education, Patient/Caregiver Education, Self-Care/Home Management,Soft Tissue Mobilization,Taping, Therapeutic Activities, Therapeutic Exercises Modalities Cold Pack/Ice Massage,Electric Stimulation,Hot Packs Next Visit Focus/Plan Next Note Type Treatment Note Next Visit Plan Patient to make appointment with physician for follow-up, return to PT in August when appointments available. Continue PT to decrease pain and numbness, improve strenth and activity tolerance.
--- NOTE | 2020-08-24 11:18 | PT.OTN ---
Current Diagnoses Sciatica, unspecified side (08/24/20) Weakness (08/24/20) History of falling (08/24/20) Physical Therapy Treatment Note PT-OP-A Visit Information Start: 07/02/20 12:11 Freq: Status: Active Protocol: Document 08/24/20 10:30 SP (Rec: 08/24/20 11:46 SP [id number]) Out-Patient Physical Therapy Visit Information Visit Information Visit Type Treatment Note Visit Note Progress Note next visit 09/05, POC expires 09/03/20. Visit Start Time 10:30 Visit Stop Time 11:18 Total Visit Minutes 48 Visit Number 10 Number of CORPORATE DEVELOPMENT ANALYST Visits 1 PT-OP-B Current Condition Start: 07/02/20 12:11 Freq: Status: Active Protocol: Document 07/02/20 13:00 SAK (Rec: 07/02/20 13:47 SAK [id number]) Current Condition History of Current Condition Onset Date 15 year Current Complaints LE pain left greater than right History of Current Condition 15 years ago back injury due to lifting. 1 year ago progressive worsening especially left LE; symptoms as 15 years ago. Has fallen 3 times over past 3 months due to pain. New development of hernia noticed a couple weeks ago, some pain constantly. LE pain goes away 10-15 min after sitting, has to sit immediately sometimes otherwise will drop. Has numbness and tingling when the pain at its worst. Uses cane for gait, uses in right hand. Symptoms worsened after chemotherapy. Prior Treatments and Tests esophageal cancer. Has appointment tomorrow with oncologist. Hernia may be due to prior surgery for feeding tube. Undergoing chemo, 3 wks ago finished radiation. Lumbar spine x-ray 01/25/20: Mild to moderate degenerative disc disease as discussed without subluxation or trauma. Spinal or foraminal stenosis is not found. Future Testing and Treatments Planned oncologist tomorrow. Treatment Goals Patient/Caregiver Goals decrease pain, eliminate falls Prior Functional Status Baseline Function- ADL's Independent Baseline Function- Mobility Independent Baseline Function- Gait no device Baseline Function- Recreation/Hobbies fishing and crabbing; able Current Functional Impairments (Reported) Functional Limitations- ADL's painful, modified Functional Limitations- Mobility/Gait limited due to pain and fear of falling Functional Limitations- Recreation/ unable to go fishing or Hobbies crabbing PT-OP-C Subjective Start: 07/02/20 12:11 Freq: Status: Active Protocol: Document 08/24/20 10:30 SP (Rec: 08/24/20 11:46 SP [id number]) OP-PT Subjective Patient Comments Patient Comments Pt stated feeling alot better, I believe therapy is really helping. PT-OP-G Mobility & Gait Start: 07/02/20 12:11 Freq: Status: Active Protocol: Document 07/02/20 13:00 SAK (Rec: 07/04/20 09:41 SAK [id number]) OP Gait Assessment Gait Gait Assistance Required: Independent Assistive Devices Assistive Device Straight Cane Orthotic/Prosthetic Devices or Brace: No Gait Deviations General Gait Pattern Antalgic,Decreased Stride Length,Decreased Feet Clearance,Flexed Trunk,Wide Based Gait Factors Limiting Gait Function Factors Limiting Gait Function Decreased Strength,Pain PT-OP-J Posture/Palpation/Skin Start: 07/02/20 12:11 Freq: Status: Active Protocol: Document 07/02/20 13:00 SAK (Rec: 07/04/20 09:41 SAK [id number]) Posture Evaluation Position Standing Head/C-Spine Posture Forward Head T-Spine Posture Increased Kyphosis L-Spine Posture Flattened Pelvis Posture Posterior Tilted Weight Distribution Weight Shifted Right Hip Posture (L) Externally Rotated,(R) Externally Rotated Knee Posture (L) Excess Flexion,(R) Excess Flexion Ankle/Foot Posture (L) Forefoot Eversion,(R) Forefoot Eversion Palpation Assessment Location lumbar spine Palpation Location saad l/s left greater than right Palpation Findings Tenderness left LE Palpation Location throughout thigh anterior andposterior Palpation Findings Tenderness Skin Assessment Other Assessments Skin Assessment Comments skin intact, no edema, no increase in warmth PT-OP-K Range of Motion Start: 07/02/20 12:11 Freq: Status: Active Protocol: Document 07/02/20 13:00 SAK (Rec: 07/04/20 09:41 SAK [id number]) Lumbar Spine Range of Motion Lumbar Spine Active Testing Position Standing ROM Limitations Pain Comments moderate decrease all motions. Hip Goniometric Range of Motion Hip saad Hip ROM WFL Yes PT-OP-Q Treatments Start: 07/02/20 12:11 Freq: Status: Active Protocol: Document 08/24/20 10:30 SP (Rec: 09/25/20 11:46 SP [id number]) Therapeutic Exercises Supine Exercises TA knee fall out Reps/Minutes x10 Comments cued PPT and core facilitaion, slow muscular control core march Reps/Minutes 2x5 Comments cued PPT and core facilitaion, slow muscular control quad set Side right Reps/Minutes 5x Comments some symptom relief HS stretch Reps/Minutes 2x30 piriformis stretch Supine Exercise Name piriformis stretch Side bilateral Reps/Minutes 2 x 30 seconds Comments Fig 4 knee toward opp shld single knee to chest Supine Exercise Name single knee to chest with opposite leg straight Reps/Minutes 30 seconds double knee to chest Reps/Minutes 2x30 hip ab/ER with TB Supine Exercise Name hooklying clam shell Equipment Used TB #1 Reps/Minutes x10 Comments cued core facilitation and pacing control better than leg straight hipABD pillow squeeze Reps/Minutes 15x2 TrA Side bilateral Reps/Minutes 10 TA contractions holding 5 seconds Sitting Exercises sciatic nerve flossing Reps/Minutes 5x Manual Therapy Treatment Manual Traction Lumbar Details 30 holds, 10 sec release Body Position Hooklying Reps/Duration 3 x30 Comments gentle with moist heat PT-OP-R Modalities Start: 07/02/20 12:11 Freq: Status: Active Protocol: Document 08/02/20 10:32 SAK (Rec: 08/02/20 11:15 SAK [id number]) Electric Stimulation Electric Stimulation Interferential Current (IFC) Body Location saad lumbar spine Duration (Minutes) 17 Intensity 20 Target/Sweep Sweep Patient Position Hooklying Combined With Heat/Cold Hot Pack Hot Pack/Cold Pack Treatment Hot Pack Location lumbar spine Patient Position Hooklying Treatment Duration (minutes) 12 Patient Tolerance Good Comments with low back stretching exercises PT-OP-T Assessment and Plan Start: 07/02/20 12:11 Freq: Status: Active Protocol: Document 08/24/20 10:30 SP (Rec: 08/24/20 11:46 SP [id number]) Physical Therapy Assessment Goals Four Impairment muscle weakness core and LE's Staffing Mgr Goal (LTG) Patient to be independent in HEP for purposes of core and LE strengthening, will demonstrate good activation of core musculature, and LE muscle strength will increase to 5/5 LTG Duration 09/02/20 Three Impairment gait dysfunction, unable to walk greater than 1-2 min Staffing Mgr Goal (LTG) Patient will be able to ambulate at least 15 min without increase in symptoms or leg giving way LTG Duration 09/02/20 Two Impairment pain left LE 5/10 pain scale Staffing Mgr Goal (LTG) Decrease pain in left LE and lumbar spine to no greater than 2/10 during all usual activities LTG Duration 09/02/20 One Impairment activity tolerance: Oswestry disability Index score 34% [facility] Goal (LTG) Improve activity tolerance as evidenced by decrease in Oswestry disability index score to no greater than 15% LTG Duration 09/02/20 Assessment Summary Assessment Pt responded well to last and today's tx. Review HEP with Max cuing for set up and proper form and gradual core facilitation during stabilization exercises. Pt had LBP recruitment during hip supine ABD/ ER against resistance so modified to hooklying clamshell resisted with improved response of no pain. Provided hand outs for self recall and proper form to allow for self carryover progression in self care. Pt declined modalities today stating didn't feel needed. Physical Therapy Plan Frequency and Duration Frequency of Treatment 2x/Week Duration of Treatment 8 wks Plan of Care Start Date 07/02/20 Plan of Care End Date 09/02/20 Therapeutic Interventions Therapeutic Interventions Aquatic Therapy,Home Exercise Program,Manual Therapy, Neuromuscular Re-education, Patient/Caregiver Education, Self-Care/Home Management,Soft Tissue Mobilization,Taping, Therapeutic Activities, Therapeutic Exercises Modalities Cold Pack/Ice Massage,Electric Stimulation,Hot Packs Next Visit Focus/Plan Next Note Type Treatment Note Next Visit Plan Patient to make appointment with physician for follow-up, return to PT in August when appointments available. Continue PT to decrease pain and numbness, improve strenth and activity tolerance.
--- NOTE | 2020-09-05 16:23 | PT.OTRE ---
Current Diagnoses Sciatica, unspecified side (09/05/20) Weakness (09/05/20) History of falling (09/05/20) Past Medical History (Last Updated 06/09/20 @ 16:46 by Navi Emmanuel MD) Chronic obstructive pulmonary disease (12/28/15) Congestive heart failure (12/28/15) Coronary artery disease involving [place] coronary artery of [place] heart without angina pectoris (12/28/15) Difficulty swallowing (Resolved) Essential hypertension (Chronic 12/28/15) GERD (gastroesophageal reflux disease) (Chronic) Hydrocele (Resolved) Mixed hyperlipidemia (12/28/15) Surgical History (Last Reviewed 03/31/20 @ 02:15 by Pasha Olea DO) History of heart artery stent (Acute) Hx of CABG (Acute) Visit Care Team Role Provider Type Navi Emmanuel MD Attending Provider Physician Primary Care Provider Referring Provider Specialty: Internal Medicine Address: [address] [place] [address], [facility] Email: [email or web address] Physical Therapy Re-Evaluation PT-OP-A Visit Information Start: 07/02/20 12:11 Freq: Status: Active Protocol: Document 09/05/20 12:59 SAK (Rec: 09/05/20 13:44 SAK [id number]) Out-Patient Physical Therapy Visit Information Visit Information Visit Type Re-Evaluation Visit Start Time 13:00 Visit Stop Time 13:59 Total Visit Minutes 59 Visit Number 11 Number of DIAMOND SORTER Visits 0 PT-OP-B Current Condition Start: 07/02/20 12:11 Freq: Status: Active Protocol: Document 07/02/20 13:00 SAK (Rec: 07/02/20 13:47 SAK [id number]) Current Condition History of Current Condition Onset Date 15 year Current Complaints LE pain left greater than right History of Current Condition 15 years ago back injury due to lifting. 1 year ago progressive worsening especially left LE; symptoms as 15 years ago. Has fallen 3 times over past 3 months due to pain. New development of hernia noticed a couple weeks ago, some pain constantly. LE pain goes away 10-15 min after sitting, has to sit immediately sometimes otherwise will drop. Has numbness and tingling when the pain at its worst. Uses cane for gait, uses in right hand. Symptoms worsened after chemotherapy. Prior Treatments and Tests esophageal cancer. Has appointment tomorrow with oncologist. Hernia may be due to prior surgery for feeding tube. Undergoing chemo, 3 wks ago finished radiation. Lumbar spine x-ray 01/25/20: Mild to moderate degenerative disc disease as discussed without subluxation or trauma. Spinal or foraminal stenosis is not found. Future Testing and Treatments Planned oncologist tomorrow. Treatment Goals Patient/Caregiver Goals decrease pain, eliminate falls Prior Functional Status Baseline Function- ADL's Independent Baseline Function- Mobility Independent Baseline Function- Gait no device Baseline Function- Recreation/Hobbies fishing and crabbing; able Current Functional Impairments (Reported) Functional Limitations- ADL's painful, modified Functional Limitations- Mobility/Gait limited due to pain and fear of falling Functional Limitations- Recreation/ unable to go fishing or Hobbies crabbing PT-OP-C Subjective Start: 07/02/20 12:11 Freq: Status: Active Protocol: Document 09/05/20 12:59 [facility] (Rec: 09/05/20 13:44 [facility] [id number]) OP-PT Subjective Patient Comments Patient Comments States he feels his cancer is coming back, feeling more weak , more difficulty swallowing. Not sure how well he will tolerate PT today. Not getting enough exercise. Has appointment with Dr. Barragan next week. PT-OP-G Mobility & Gait Start: 07/02/20 12:11 Freq: Status: Active Protocol: Document 07/02/20 13:00 [facility] (Rec: 07/04/20 09:41 [facility] [id number]) OP Gait Assessment Gait Gait Assistance Required: Independent Assistive Devices Assistive Device Straight Cane Orthotic/Prosthetic Devices or Brace: No Gait Deviations General Gait Pattern Antalgic,Decreased Stride Length,Decreased Feet Clearance,Flexed Trunk,Wide Based Gait Factors Limiting Gait Function Factors Limiting Gait Function Decreased Strength,Pain PT-OP-J Posture/Palpation/Skin Start: 07/02/20 12:11 Freq: Status: Active Protocol: Document 07/02/20 13:00 [facility] (Rec: 07/04/20 09:41 [facility] [id number]) Posture Evaluation Position Standing Head/C-Spine Posture Forward Head T-Spine Posture Increased Kyphosis L-Spine Posture Flattened Pelvis Posture Posterior Tilted Weight Distribution Weight Shifted Right Hip Posture (L) Externally Rotated,(R) Externally Rotated Knee Posture (L) Excess Flexion,(R) Excess Flexion Ankle/Foot Posture (L) Forefoot Eversion,(R) Forefoot Eversion Palpation Assessment Location lumbar spine Palpation Location saad l/s left greater than right Palpation Findings Tenderness left LE Palpation Location throughout thigh anterior andposterior Palpation Findings Tenderness Skin Assessment Other Assessments Skin Assessment Comments skin intact, no edema, no increase in warmth PT-OP-K Range of Motion Start: 07/02/20 12:11 Freq: Status: Active Protocol: Document 07/02/20 13:00 SAK (Rec: 07/04/20 09:41 SAK [id number]) Lumbar Spine Range of Motion Lumbar Spine Active Testing Position Standing ROM Limitations Pain Comments moderate decrease all motions. Hip Goniometric Range of Motion Hip Measured in Degrees saad Hip ROM WFL Yes PT-OP-Q Treatments Start: 07/02/20 12:11 Freq: Status: Active Protocol: Document 09/05/20 12:59 [facility] (Rec: 09/05/20 13:44 [facility] [id number]) Cardio Equipment Recumbent Stepper (Sci-Fit) Duration (Minutes) 10 Resistance 1 Seat Position 11 Gym Equipment Shuttle Recovery Unilateral Squats Resistance 25 Shuttle Recovery Platform Stable Reps/Time 10x Bilateral Squats Resistance 50 Shuttle Recovery Platform Stable Reps/Time 10x2 Therapeutic Exercises Supine Exercises TA knee fall out Reps/Minutes x10 Comments cued PPT and core facilitaion, slow muscular control core march Reps/Minutes 2x5 Comments cued PPT and core facilitaion, slow muscular control gluteal sets Reps/Minutes 10x2 Comments small bridge hip ab/ER with TB Supine Exercise Name hooklying clam shell Equipment Used TB #1 Reps/Minutes x10 Comments cued core facilitation and pacing control better than leg straight hipABD pillow squeeze Equipment Used ball Reps/Minutes 10x2 TrA Side bilateral Reps/Minutes 10 TA contractions holding 5 seconds Sitting Exercises sciatic nerve flossing Reps/Minutes 5x Manual Therapy Treatment Manual Traction Lumbar Details 30 holds, 10 sec release Body Position Hooklying Reps/Duration 10 min Comments gentle with moist heat PT-OP-R Modalities Start: 07/02/20 12:11 Freq: Status: Active Protocol: Document 09/05/20 16:23 [facility] (Rec: 09/05/20 16:23 [facility] [id number]) Electric Stimulation Electric Stimulation Interferential Current (IFC) Body Location saad lumbar spine Duration (Minutes) 15 Intensity 20 Target/Sweep Sweep Patient Position Hooklying Combined With Heat/Cold Hot Pack PT-OP-T Assessment and Plan Start: 07/02/20 12:11 Freq: Status: Active Protocol: Document 09/05/20 12:59 [facility] (Rec: 09/05/20 13:44 [facility] [id number]) Physical Therapy Assessment Goals Four Impairment muscle weakness core and LE's Outsole Rounder Goal (LTG) Patient to be independent in HEP for purposes of core and LE strengthening, will demonstrate good activation of core musculature, and LE muscle strength will increase to 5/5 09/05/20: goal progress, patient compliance variable with HEP LTG Duration 09/02/20 Three Impairment gait dysfunction, unable to walk greater than 1-2 min Snf Goal (LTG) Patient will be able to ambulate at least 15 min without increase in symptoms or leg giving way 09/05/20: minimal progress, though for 1-2 days after PT patient reports some improvement. LTG Duration 09/02/20 Two Impairment pain left LE 5/10 pain scale Outsole Rounder Goal (LTG) Decrease pain in left LE and lumbar spine to no greater than 2/10 during all usual activities 09/05/20: improvement for 1-2 days after PT LTG Duration 09/02/20 One Impairment activity tolerance: Oswestry disability Index score 34% Snf Goal (LTG) Improve activity tolerance as evidenced by decrease in Oswestry disability index score to no greater than 15% 09/05/20: Oswestry score: decreased to 30% LTG Duration 09/02/20 Assessment Summary Assessment Patient demonstrated decreased activity tolerance today, has concerns his cancer is worsening. Will be seeing his physician next week. Experiences decrease in pain and numbness in his left LE for 1-2 days after PT. Has been progressing with increased activity tolerance in PT until the past week. Physical Therapy Plan Frequency and Duration Frequency of Treatment 2x/Week Duration of Treatment 8 wks Plan of Care Start Date 09/05/20 Plan of Care End Date 10/03/20 Therapeutic Interventions Therapeutic Interventions Aquatic Therapy,Home Exercise Program,Manual Therapy, Neuromuscular Re-education, Patient/Caregiver Education, Self-Care/Home Management,Soft Tissue Mobilization,Taping, Therapeutic Activities, Therapeutic Exercises Modalities Cold Pack/Ice Massage,Electric Stimulation,Hot Packs Next Visit Focus/Plan Next Note Type Treatment Note Next Visit Plan Continue PT to decrease pain and numbness, improve LE and core strength and activity tolerance.
--- NOTE | 2020-09-05 16:23 | PT.OPPOC ---
Physical, Occupational & Speech Therapy At [facility] Current Diagnoses Sciatica, unspecified side (09/05/20) Weakness (09/05/20) History of falling (09/05/20) Visit Care Team Role Provider Type Navi Emmanuel MD Attending Provider Physician Primary Care Provider Referring Provider Specialty: Internal Medicine Address: [address] [place] [address], [address], [facility] Email: [email or web address] Plan Of Care PT-OP-T Assessment and Plan Start: 07/02/20 12:11 Freq: Status: Active Protocol: Document 09/05/20 12:59 SAK (Rec: 09/05/20 13:44 SAK [id number]) Physical Therapy Assessment Goals Four Impairment muscle weakness core and LE's Group Home Goal (LTG) Patient to be independent in HEP for purposes of core and LE strengthening, will demonstrate good activation of core musculature, and LE muscle strength will increase to 5/5 09/05/20: goal progress, patient compliance variable with HEP LTG Duration 09/02/20 Three Impairment gait dysfunction, unable to walk greater than 1-2 min Side Seam Machine Operator Goal (LTG) Patient will be able to ambulate at least 15 min without increase in symptoms or leg giving way 09/05/20: minimal progress, though for 1-2 days after PT patient reports some improvement. LTG Duration 09/02/20 Two Impairment pain left LE 5/10 pain scale Group Home Goal (LTG) Decrease pain in left LE and lumbar spine to no greater than 2/10 during all usual activities 09/05/20: improvement for 1-2 days after PT LTG Duration 09/02/20 One Impairment activity tolerance: Oswestry disability Index score 34% Side Seam Machine Operator Goal (LTG) Improve activity tolerance as evidenced by decrease in Oswestry disability index score to no greater than 15% 09/05/20: Oswestry score: decreased to 30% LTG Duration 09/02/20 Assessment Summary Assessment Patient demonstrated decreased activity tolerance today, has concerns his cancer is worsening. Will be seeing his physician next week. Experiences decrease in pain and numbness in his left LE for 1-2 days after PT. Has been progressing with increased activity tolerance in PT until the past week. Physical Therapy Plan Frequency and Duration Frequency of Treatment 2x/Week Duration of Treatment 8 wks Plan of Care Start Date 09/05/20 Plan of Care End Date 10/03/20 Therapeutic Interventions Therapeutic Interventions Aquatic Therapy,Home Exercise Program,Manual Therapy, Neuromuscular Re-education, Patient/Caregiver Education, Self-Care/Home Management,Soft Tissue Mobilization,Taping, Therapeutic Activities, Therapeutic Exercises Modalities Cold Pack/Ice Massage,Electric Stimulation,Hot Packs Next Visit Focus/Plan Next Note Type Treatment Note Next Visit Plan Continue PT to decrease pain and numbness, improve LE and core strength and activity tolerance. Plan of Care Dates Plan of Care Start Date 09/05/20 Plan of Care End Date 10/03/20 Electronically Signed by: Kenzie Randolph, PT 09/05/20 [id number] Please Sign and Return: I have reviewed this Plan of Care and certify that the skilled therapy services above are required to meet the patient?s needs. Physician Signature Date Printed Name and Credentials Clinical Instructor Signature Printed Name and Credentials
--- NOTE | 2020-09-10 11:05 | PT.OTN ---
Current Diagnoses Sciatica, unspecified side (09/10/20) Weakness (09/10/20) History of falling (09/10/20) Physical Therapy Treatment Note PT-OP-A Visit Information Start: 07/02/20 12:11 Freq: Status: Active Protocol: Document 09/10/20 10:16 MA (Rec: 09/10/20 10:59 MA [id number]) Out-Patient Physical Therapy Visit Information Visit Information Visit Type Treatment Note Visit Start Time 10:16 Visit Stop Time 11:00 Total Visit Minutes 44 Visit Number 12 Number of KNITTING MACHINE OPERATOR Visits 1 PT-OP-B Current Condition Start: 07/02/20 12:11 Freq: Status: Active Protocol: Document 07/02/20 13:00 SAK (Rec: 07/02/20 13:47 SAK [id number]) Current Condition History of Current Condition Onset Date 15 year Current Complaints LE pain left greater than right History of Current Condition 15 years ago back injury due to lifting. 1 year ago progressive worsening especially left LE; symptoms as 15 years ago. Has fallen 3 times over past 3 months due to pain. New development of hernia noticed a couple weeks ago, some pain constantly. LE pain goes away 10-15 min after sitting, has to sit immediately sometimes otherwise will drop. Has numbness and tingling when the pain at its worst. Uses cane for gait, uses in right hand. Symptoms worsened after chemotherapy. Prior Treatments and Tests esophageal cancer. Has appointment tomorrow with oncologist. Hernia may be due to prior surgery for feeding tube. Undergoing chemo, 3 wks ago finished radiation. Lumbar spine x-ray 01/25/20: Mild to moderate degenerative disc disease as discussed without subluxation or trauma. Spinal or foraminal stenosis is not found. Future Testing and Treatments Planned oncologist tomorrow. Treatment Goals Patient/Caregiver Goals decrease pain, eliminate falls Prior Functional Status Baseline Function- ADL's Independent Baseline Function- Mobility Independent Baseline Function- Gait no device Baseline Function- Recreation/Hobbies fishing and crabbing; able Current Functional Impairments (Reported) Functional Limitations- ADL's painful, modified Functional Limitations- Mobility/Gait limited due to pain and fear of falling Functional Limitations- Recreation/ unable to go fishing or Hobbies crabbing PT-OP-C Subjective Start: 07/02/20 12:11 Freq: Status: Active Protocol: Document 09/10/20 10:16 MA (Rec: 09/10/20 10:59 MA [id number]) OP-PT Subjective Patient Comments Patient Comments Pt sees cancer on 09/28/20. Pt says he has not been doing any HEP exercises except for pulling both knees to chest to stretch his low back because they cause pain and are not helping. Patient Reported Progress Same PT-OP-G Mobility & Gait Start: 07/02/20 12:11 Freq: Status: Active Protocol: Document 07/02/20 13:00 [facility] (Rec: 07/04/20 09:41 [facility] [id number]) OP Gait Assessment Gait Gait Assistance Required: Independent Assistive Devices Assistive Device Straight Cane Orthotic/Prosthetic Devices or Brace: No Gait Deviations General Gait Pattern Antalgic,Decreased Stride Length,Decreased Feet Clearance,Flexed Trunk,Wide Based Gait Factors Limiting Gait Function Factors Limiting Gait Function Decreased Strength,Pain PT-OP-J Posture/Palpation/Skin Start: 07/02/20 12:11 Freq: Status: Active Protocol: Document 07/02/20 13:00 [facility] (Rec: 07/04/20 09:41 [facility] [id number]) Posture Evaluation Position Standing Head/C-Spine Posture Forward Head T-Spine Posture Increased Kyphosis L-Spine Posture Flattened Pelvis Posture Posterior Tilted Weight Distribution Weight Shifted Right Hip Posture (L) Externally Rotated,(R) Externally Rotated Knee Posture (L) Excess Flexion,(R) Excess Flexion Ankle/Foot Posture (L) Forefoot Eversion,(R) Forefoot Eversion Palpation Assessment Location lumbar spine Palpation Location bill l/s left greater than right Palpation Findings Tenderness left LE Palpation Location throughout thigh anterior andposterior Palpation Findings Tenderness Skin Assessment Other Assessments Skin Assessment Comments skin intact, no edema, no increase in warmth PT-OP-K Range of Motion Start: 07/02/20 12:11 Freq: Status: Active Protocol: Document 07/02/20 13:00 SAK (Rec: 07/04/20 09:41 [facility] [id number]) Lumbar Spine Range of Motion Lumbar Spine Active Testing Position Standing ROM Limitations Pain Comments moderate decrease all motions. Hip Goniometric Range of Motion Hip bill Hip ROM WFL Yes PT-OP-Q Treatments Start: 07/02/20 12:11 Freq: Status: Active Protocol: Document 09/10/20 10:16 MA (Rec: 09/10/20 10:59 MA [id number]) Cardio Equipment Recumbent Elliptical (Biodex) Duration (Minutes) 6 Resistance 1 Seat Position 9 Therapeutic Exercises Supine Exercises Bridge Reps/Minutes 1x10 Comments Discontinued pt c/o LBP on L core march Reps/Minutes 1x10 Comments Cued core facilitation- on number 10 pt c/o shooting LBP piriformis stretch Reps/Minutes 1x30 sec bill Comments LLE needs to modify to avoid feeling LBP, RLE normal supine stretch single knee to chest Reps/Minutes 2x30 sec Bill double knee to chest Reps/Minutes 3x10 gluteal sets Reps/Minutes 1x10 Comments small bridge pillow squeeze Equipment Used pillow Reps/Minutes 10x2 PT-OP-R Modalities Start: 07/02/20 12:11 Freq: Status: Active Protocol: Document 09/10/20 10:16 MA (Rec: 09/10/20 10:59 MA [id number]) Electric Stimulation Electric Stimulation Interferential Current (IFC) Body Location bill lumbar spine Duration (Minutes) 10 Intensity 18 Target/Sweep Sweep Patient Position Hooklying Combined With Heat/Cold Hot Pack PT-OP-T Assessment and Plan Start: 07/02/20 12:11 Freq: Status: Active Protocol: Document 09/10/20 10:16 MA (Rec: 09/10/20 10:59 MA [id number]) Physical Therapy Assessment Assessment Summary Assessment Pt c/o of LBP during most of the ther exercises today. Pt needs constant cues to engage core to avoid using low back. Physical Therapy Plan Frequency and Duration Frequency of Treatment 2x/Week Duration of Treatment 8 wks Plan of Care Start Date 09/05/20 Plan of Care End Date 10/03/20 Next Visit Focus/Plan Next Note Type Treatment Note Next Visit Plan Continue PT to decrease pain and numbness, improve LE and core strength and improve activity tolerance. Find new HEP exercises that don't increase low back pain and educate pt on importance of HEP.
--- NOTE | 2020-09-12 10:30 | PT.OTN ---
Current Diagnoses Sciatica, unspecified side (09/12/20) Weakness (09/12/20) History of falling (09/12/20) Physical Therapy Treatment Note PT-OP-A Visit Information Start: 07/02/20 12:11 Freq: Status: Active Protocol: Document 09/12/20 09:48 SAK (Rec: 09/12/20 10:29 SAK [id number]) Out-Patient Physical Therapy Visit Information Visit Information Visit Type Treatment Note Visit Start Time 09:45 Visit Stop Time 10:30 Total Visit Minutes 45 Visit Number 13 Number of AUTOMOBILE DEALER Visits 0 PT-OP-B Current Condition Start: 07/02/20 12:11 Freq: Status: Active Protocol: Document 07/02/20 13:00 SAK (Rec: 07/02/20 13:47 SAK [id number]) Current Condition History of Current Condition Onset Date 15 year Current Complaints LE pain left greater than right History of Current Condition 15 years ago back injury due to lifting. 1 year ago progressive worsening especially left LE; symptoms as 15 years ago. Has fallen 3 times over past 3 months due to pain. New development of hernia noticed a couple weeks ago, some pain constantly. LE pain goes away 10-15 min after sitting, has to sit immediately sometimes otherwise will drop. Has numbness and tingling when the pain at its worst. Uses cane for gait, uses in right hand. Symptoms worsened after chemotherapy. Prior Treatments and Tests esophageal cancer. Has appointment tomorrow with oncologist. Hernia may be due to prior surgery for feeding tube. Undergoing chemo, 3 wks ago finished radiation. Lumbar spine x-ray 01/25/20: Mild to moderate degenerative disc disease as discussed without subluxation or trauma. Spinal or foraminal stenosis is not found. Future Testing and Treatments Planned oncologist tomorrow. Treatment Goals Patient/Caregiver Goals decrease pain, eliminate falls Prior Functional Status Baseline Function- ADL's Independent Baseline Function- Mobility Independent Baseline Function- Gait no device Baseline Function- Recreation/Hobbies fishing and crabbing; able Current Functional Impairments (Reported) Functional Limitations- ADL's painful, modified Functional Limitations- Mobility/Gait limited due to pain and fear of falling Functional Limitations- Recreation/ unable to go fishing or Hobbies crabbing PT-OP-C Subjective Start: 07/02/20 12:11 Freq: Status: Active Protocol: Document 09/12/20 09:48 [facility] (Rec: 09/12/20 10:29 [facility] [id number]) OP-PT Subjective Patient Comments Patient Comments States since last session with PT 09/05/20 had initial severe pain after session bilateral hips, but then hasn't had any pain since. PT-OP-G Mobility & Gait Start: 07/02/20 12:11 Freq: Status: Active Protocol: Document 07/02/20 13:00 [facility] (Rec: 07/04/20 09:41 [facility] [id number]) OP Gait Assessment Gait Gait Assistance Required: Independent Assistive Devices Assistive Device Straight Cane Orthotic/Prosthetic Devices or Brace: No Gait Deviations General Gait Pattern Antalgic,Decreased Stride Length,Decreased Feet Clearance,Flexed Trunk,Wide Based Gait Factors Limiting Gait Function Factors Limiting Gait Function Decreased Strength,Pain PT-OP-J Posture/Palpation/Skin Start: 07/02/20 12:11 Freq: Status: Active Protocol: Document 07/02/20 13:00 [facility] (Rec: 07/04/20 09:41 [facility] [id number]) Posture Evaluation Position Standing Head/C-Spine Posture Forward Head T-Spine Posture Increased Kyphosis L-Spine Posture Flattened Pelvis Posture Posterior Tilted Weight Distribution Weight Shifted Right Hip Posture (L) Externally Rotated,(R) Externally Rotated Knee Posture (L) Excess Flexion,(R) Excess Flexion Ankle/Foot Posture (L) Forefoot Eversion,(R) Forefoot Eversion Palpation Assessment Location lumbar spine Palpation Location bill l/s left greater than right Palpation Findings Tenderness left LE Palpation Location throughout thigh anterior andposterior Palpation Findings Tenderness Skin Assessment Other Assessments Skin Assessment Comments skin intact, no edema, no increase in warmth PT-OP-K Range of Motion Start: 07/02/20 12:11 Freq: Status: Active Protocol: Document 07/02/20 13:00 [facility] (Rec: 07/04/20 09:41 [facility] [id number]) Lumbar Spine Range of Motion Lumbar Spine Active Testing Position Standing ROM Limitations Pain Comments moderate decrease all motions. Hip Goniometric Range of Motion Hip bill Hip ROM WFL Yes PT-OP-Q Treatments Start: 07/02/20 12:11 Freq: Status: Active Protocol: Document 09/12/20 09:48 [facility] (Rec: 09/12/20 10:29 [facility] [id number]) Cardio Equipment Recumbent Stepper (Sci-Fit) Duration (Minutes) 10 Resistance 1 Seat Position 11 Recumbent Bicycle Duration (Minutes) 3 Resistance 1 Seat Position 4 Other c/o hip pain, discontinued Gym Equipment Shuttle Recovery Unilateral Squats Resistance 25 Shuttle Recovery Platform Stable Reps/Time 10x Bilateral Squats Resistance 50 Shuttle Recovery Platform Stable Reps/Time 10x2 Therapeutic Exercises Supine Exercises single knee to chest Reps/Minutes 2x30 sec Bill double knee to chest Reps/Minutes 3x10 Manual Therapy Treatment Manual Traction Lumbar Details 30 holds, 10 sec release Body Position Hooklying Reps/Duration 10 min Comments gentle with moist heat Self-Care/Home Management Treatment Education Patient Education Home Exercise Program,Pain Management Other Education importance of regular exercise ; submaximal, pain-free intensity. Consider recumbant exercise bike for home use; have family member help with online search possibly for used bike. PT-OP-R Modalities Start: 07/02/20 12:11 Freq: Status: Active Protocol: Document 09/12/20 09:48 [facility] (Rec: 09/12/20 10:29 [facility] [id number]) Electric Stimulation Electric Stimulation Interferential Current (IFC) Body Location bill lumbar spine Duration (Minutes) 10 Intensity 18 Target/Sweep Sweep Patient Position Hooklying Combined With Heat/Cold Hot Pack PT-OP-T Assessment and Plan Start: 07/02/20 12:11 Freq: Status: Active Protocol: Document 09/12/20 09:48 [facility] (Rec: 09/12/20 10:29 [facility] [id number]) Physical Therapy Assessment Goals Four Impairment muscle weakness core and LE's Software Applications Engineer Goal (LTG) Patient to be independent in HEP for purposes of core and LE strengthening, will demonstrate good activation of core musculature, and LE muscle strength will increase to 5/5 09/05/20: goal progress, patient compliance variable with HEP LTG Duration 09/02/20 Three Impairment gait dysfunction, unable to walk greater than 1-2 min Software Applications Engineer Goal (LTG) Patient will be able to ambulate at least 15 min without increase in symptoms or leg giving way 09/05/20: minimal progress, though for 1-2 days after PT patient reports some improvement. LTG Duration 09/02/20 Two Impairment pain left LE 5/10 pain scale Fci Goal (LTG) Decrease pain in left LE and lumbar spine to no greater than 2/10 during all usual activities 09/05/20: improvement for 1-2 days after PT LTG Duration 09/02/20 One Impairment activity tolerance: Oswestry disability Index score 34% [facility] Goal (LTG) Improve activity tolerance as evidenced by decrease in Oswestry disability index score to no greater than 15% 09/05/20: Oswestry score: decreased to 30% LTG Duration 09/02/20 Assessment Summary Assessment Patient did not tolerate upright bicycle. May need to consider recumbant ex bike for home use. Physical Therapy Plan Frequency and Duration Frequency of Treatment 2x/Week Duration of Treatment 8 wks Plan of Care Start Date 09/05/20 Plan of Care End Date 10/03/20 Therapeutic Interventions Therapeutic Interventions Aquatic Therapy,Home Exercise Program,Manual Therapy, Neuromuscular Re-education, Patient/Caregiver Education, Self-Care/Home Management,Soft Tissue Mobilization,Taping, Therapeutic Activities, Therapeutic Exercises Modalities Cold Pack/Ice Massage,Electric Stimulation,Hot Packs Next Visit Focus/Plan Next Note Type Treatment Note Next Visit Plan Continue to encourage gentle HEP daily, try recumbant exercise bike. Supine ther ex in painfree ROM and intensity . Breathing exercises for relaxation and pain management .
--- NOTE | 2020-09-19 13:34 | PT.OTN ---
Current Diagnoses Sciatica, unspecified side (09/19/20) Weakness (09/19/20) History of falling (09/19/20) Physical Therapy Treatment Note PT-OP-A Visit Information Start: 07/02/20 12:11 Freq: Status: Active Protocol: Document 09/19/20 13:01 [facility] (Rec: 09/19/20 13:20 [facility] [id number]) Out-Patient Physical Therapy Visit Information Visit Information Visit Type Treatment Note Visit Note DNS Visit Start Time 13:00 Visit Stop Time 13:35 Total Visit Minutes 35 Visit Number 14 Number of ALLOCATION ANALYST Visits 0 PT-OP-B Current Condition Start: 07/02/20 12:11 Freq: Status: Active Protocol: Document 07/02/20 13:00 SAK (Rec: 07/02/20 13:47 SAK [id number]) Current Condition History of Current Condition Onset Date 15 year Current Complaints LE pain left greater than right History of Current Condition 15 years ago back injury due to lifting. 1 year ago progressive worsening especially left LE; symptoms as 15 years ago. Has fallen 3 times over past 3 months due to pain. New development of hernia noticed a couple weeks ago, some pain constantly. LE pain goes away 10-15 min after sitting, has to sit immediately sometimes otherwise will drop. Has numbness and tingling when the pain at its worst. Uses cane for gait, uses in right hand. Symptoms worsened after chemotherapy. Prior Treatments and Tests esophageal cancer. Has appointment tomorrow with oncologist. Hernia may be due to prior surgery for feeding tube. Undergoing chemo, 3 wks ago finished radiation. Lumbar spine x-ray 01/25/20: Mild to moderate degenerative disc disease as discussed without subluxation or trauma. Spinal or foraminal stenosis is not found. Future Testing and Treatments Planned oncologist tomorrow. Treatment Goals Patient/Caregiver Goals decrease pain, eliminate falls Prior Functional Status Baseline Function- ADL's Independent Baseline Function- Mobility Independent Baseline Function- Gait no device Baseline Function- Recreation/Hobbies fishing and crabbing; able Current Functional Impairments (Reported) Functional Limitations- ADL's painful, modified Functional Limitations- Mobility/Gait limited due to pain and fear of falling Functional Limitations- Recreation/ unable to go fishing or Hobbies crabbing PT-OP-C Subjective Start: 07/02/20 12:11 Freq: Status: Active Protocol: Document 09/19/20 13:01 [facility] (Rec: 09/19/20 13:20 [facility] [id number]) OP-PT Subjective Patient Comments Patient Comments Reports PT doesn't seem to be helping anymore, limited to walking half a block. No relief of pain. Agreeable to place PT on hold at this time, return to his doctor. PT-OP-G Mobility & Gait Start: 07/02/20 12:11 Freq: Status: Active Protocol: Document 07/02/20 13:00 [facility] (Rec: 07/04/20 09:41 [facility] [id number]) OP Gait Assessment Gait Gait Assistance Required: Independent Assistive Devices Assistive Device Straight Cane Orthotic/Prosthetic Devices or Brace: No Gait Deviations General Gait Pattern Antalgic,Decreased Stride Length,Decreased Feet Clearance,Flexed Trunk,Wide Based Gait Factors Limiting Gait Function Factors Limiting Gait Function Decreased Strength,Pain PT-OP-J Posture/Palpation/Skin Start: 07/02/20 12:11 Freq: Status: Active Protocol: Document 07/02/20 13:00 [facility] (Rec: 07/04/20 09:41 [facility] [id number]) Posture Evaluation Position Standing Head/C-Spine Posture Forward Head T-Spine Posture Increased Kyphosis L-Spine Posture Flattened Pelvis Posture Posterior Tilted Weight Distribution Weight Shifted Right Hip Posture (L) Externally Rotated,(R) Externally Rotated Knee Posture (L) Excess Flexion,(R) Excess Flexion Ankle/Foot Posture (L) Forefoot Eversion,(R) Forefoot Eversion Palpation Assessment Location lumbar spine Palpation Location saad l/s left greater than right Palpation Findings Tenderness left LE Palpation Location throughout thigh anterior andposterior Palpation Findings Tenderness Skin Assessment Other Assessments Skin Assessment Comments skin intact, no edema, no increase in warmth PT-OP-K Range of Motion Start: 07/02/20 12:11 Freq: Status: Active Protocol: Document 07/02/20 13:00 [facility] (Rec: 07/04/20 09:41 [facility] [id number]) Lumbar Spine Range of Motion Lumbar Spine Active Testing Position Standing ROM Limitations Pain Comments moderate decrease all motions. Hip Goniometric Range of Motion Hip saad Hip ROM WFL Yes PT-OP-Q Treatments Start: 07/02/20 12:11 Freq: Status: Active Protocol: Document 09/19/20 13:01 [facility] (Rec: 09/19/20 13:20 [facility] [id number]) Cardio Equipment Recumbent Stepper (Sci-Fit) Duration (Minutes) 10 Resistance 1 Seat Position 11 Self-Care/Home Management Treatment Education Patient Education Home Exercise Program,Pain Management Other Education TENS unit due to reporting decrease in pain with use of IFES. PT-OP-R Modalities Start: 07/02/20 12:11 Freq: Status: Active Protocol: Document 09/19/20 13:01 [facility] (Rec: 09/19/20 13:20 SAK [id number]) Electric Stimulation Electric Stimulation Interferential Current (IFC) Body Location saad lumbar spine Duration (Minutes) 10 Intensity 18 Target/Sweep Sweep Patient Position Hooklying Combined With Heat/Cold Hot Pack PT-OP-T Assessment and Plan Start: 07/02/20 12:11 Freq: Status: Active Protocol: Document 09/19/20 13:01 [facility] (Rec: 09/19/20 13:20 [facility] [id number]) Physical Therapy Assessment Goals Four Impairment muscle weakness core and LE's Billet Checker Goal (LTG) Patient to be independent in HEP for purposes of core and LE strengthening, will demonstrate good activation of core musculature, and LE muscle strength will increase to 5/5 09/05/20: goal progress, patient compliance variable with HEP LTG Duration 09/02/20 Three Impairment gait dysfunction, unable to walk greater than 1-2 min Alf Goal (LTG) Patient will be able to ambulate at least 15 min without increase in symptoms or leg giving way 09/05/20: minimal progress, though for 1-2 days after PT patient reports some improvement. LTG Duration 09/02/20 Two Impairment pain left LE 5/10 pain scale Alf Goal (LTG) Decrease pain in left LE and lumbar spine to no greater than 2/10 during all usual activities 09/05/20: improvement for 1-2 days after PT LTG Duration 09/02/20 One Impairment activity tolerance: Oswestry disability Index score 34% Alf Goal (LTG) Improve activity tolerance as evidenced by decrease in Oswestry disability index score to no greater than 15% 09/05/20: Oswestry score: decreased to 30% LTG Duration 09/02/20 Assessment Summary Assessment Patient not tolerating PT well or benefiting per his report. Patient to return to his physician, PT placed on hold. Physical Therapy Plan Frequency and Duration Frequency of Treatment 2x/Week Duration of Treatment 8 wks Plan of Care Start Date 09/05/20 Plan of Care End Date 10/03/20 Therapeutic Interventions Therapeutic Interventions Aquatic Therapy,Home Exercise Program,Manual Therapy, Neuromuscular Re-education, Patient/Caregiver Education, Self-Care/Home Management,Soft Tissue Mobilization,Taping, Therapeutic Activities, Therapeutic Exercises Modalities Cold Pack/Ice Massage,Electric Stimulation,Hot Packs Hold Physical Therapy Reason For Hold Poor tolerance, feels not benefiting except really likes the heat and IFES; patient to explore purchasing TENS unit for home use. Next Visit Focus/Plan Next Visit Plan Hold PT pending recommendations from physician .
--- NOTE | 2020-10-01 08:05 | PT-OP ANOTE ---
cancelled via [employer]
--- NOTE | 2020-10-03 08:12 | PT.OPDS ---
Current Diagnoses Sciatica, unspecified side (09/19/20) Weakness (09/19/20) History of falling (09/19/20) Visit Care Team Role Provider Type Navi Emmanuel MD Attending Provider Physician Primary Care Provider Referring Provider Specialty: Internal Medicine Address: [address] [place] [address], [address], [address] Email: [email or web address] Number Visit Number 14 Discharge Summary PT-OP-B Current Condition Start: 07/02/20 12:11 Freq: Status: Active Protocol: Document 07/02/20 13:00 SAK (Rec: 07/02/20 13:47 SAK [id number]) Current Condition History of Current Condition Onset Date 15 year Current Complaints LE pain left greater than right History of Current Condition 15 years ago back injury due to lifting. 1 year ago progressive worsening especially left LE; symptoms as 15 years ago. Has fallen 3 times over past 3 months due to pain. New development of hernia noticed a couple weeks ago, some pain constantly. LE pain goes away 10-15 min after sitting, has to sit immediately sometimes otherwise will drop. Has numbness and tingling when the pain at its worst. Uses cane for gait, uses in right hand. Symptoms worsened after chemotherapy. Prior Treatments and Tests esophageal cancer. Has appointment tomorrow with oncologist. Hernia may be due to prior surgery for feeding tube. Undergoing chemo, 3 wks ago finished radiation. Lumbar spine x-ray 01/25/20: Mild to moderate degenerative disc disease as discussed without subluxation or trauma. Spinal or foraminal stenosis is not found. Future Testing and Treatments Planned oncologist tomorrow. Treatment Goals Patient/Caregiver Goals decrease pain, eliminate falls Prior Functional Status Baseline Function- ADL's Independent Baseline Function- Mobility Independent Baseline Function- Gait no device Baseline Function- Recreation/Hobbies fishing and crabbing; able Current Functional Impairments (Reported) Functional Limitations- ADL's painful, modified Functional Limitations- Mobility/Gait limited due to pain and fear of falling Functional Limitations- Recreation/ unable to go fishing or Hobbies crabbing PT-OP-C Subjective Start: 07/02/20 12:11 Freq: Status: Active Protocol: Document 09/19/20 13:01 SAK (Rec: 09/19/20 13:20 [facility] [id number]) OP-PT Subjective Patient Comments Patient Comments Reports PT doesn't seem to be helping anymore, limited to walking half a block. No relief of pain. Agreeable to place PT on hold at this time, return to his doctor. PT-OP-G Mobility & Gait Start: 07/02/20 12:11 Freq: Status: Active Protocol: Document 07/02/20 13:00 [facility] (Rec: 07/04/20 09:41 [facility] [id number]) OP Gait Assessment Gait Gait Assistance Required: Independent Assistive Devices Assistive Device Straight Cane Orthotic/Prosthetic Devices or Brace: No Gait Deviations General Gait Pattern Antalgic,Decreased Stride Length,Decreased Feet Clearance,Flexed Trunk,Wide Based Gait Factors Limiting Gait Function Factors Limiting Gait Function Decreased Strength,Pain PT-OP-J Posture/Palpation/Skin Start: 07/02/20 12:11 Freq: Status: Active Protocol: Document 07/02/20 13:00 [facility] (Rec: 07/04/20 09:41 [facility] [id number]) Posture Evaluation Position Standing Head/C-Spine Posture Forward Head T-Spine Posture Increased Kyphosis L-Spine Posture Flattened Pelvis Posture Posterior Tilted Weight Distribution Weight Shifted Right Hip Posture (L) Externally Rotated,(R) Externally Rotated Knee Posture (L) Excess Flexion,(R) Excess Flexion Ankle/Foot Posture (L) Forefoot Eversion,(R) Forefoot Eversion Palpation Assessment Location lumbar spine Palpation Location saad l/s left greater than right Palpation Findings Tenderness left LE Palpation Location throughout thigh anterior andposterior Palpation Findings Tenderness Skin Assessment Other Assessments Skin Assessment Comments skin intact, no edema, no increase in warmth PT-OP-K Range of Motion Start: 07/02/20 12:11 Freq: Status: Active Protocol: Document 07/02/20 13:00 [facility] (Rec: 07/04/20 09:41 [facility] [id number]) Lumbar Spine Range of Motion Lumbar Spine Active Testing Position Standing ROM Limitations Pain Comments moderate decrease all motions. Hip Goniometric Range of Motion Hip saad Hip ROM WFL Yes PT-OP-T Assessment and Plan Start: 07/02/20 12:11 Freq: Status: Active Protocol: Document 10/03/20 08:10 [facility] (Rec: 10/03/20 08:12 SAK [id number]) Physical Therapy Plan Discharge Physical Therapy Discharge Reasons No Longer Attending PT Discharge Comments Cancelled last 2 appointments, citing no longer feeling any improvement at last session seen. Unable to do formal reassessment due to cancels.
--- NOTE | 2020-11-01 11:43 | PT.OPDS ---
Current Diagnoses Sciatica, unspecified side (09/19/20) Weakness (09/19/20) History of falling (09/19/20) Visit Care Team Role Provider Type Navi Emmanuel MD Attending Provider Physician Primary Care Provider Referring Provider Specialty: Internal Medicine Address: [address] [place] [address], [address], [address] Email: [email or web address] Visit Number Visit Number 14 Discharge Summary PT-OP-B Current Condition Start: 07/02/20 12:11 Freq: Status: Active Protocol: Document 07/02/20 13:00 SAK (Rec: 07/02/20 13:47 SAK [id number]) Current Condition History of Current Condition Onset Date 15 year Current Complaints LE pain left greater than right History of Current Condition 15 years ago back injury due to lifting. 1 year ago progressive worsening especially left LE; symptoms as 15 years ago. Has fallen 3 times over past 3 months due to pain. New development of hernia noticed a couple weeks ago, some pain constantly. LE pain goes away 10-15 min after sitting, has to sit immediately sometimes otherwise will drop. Has numbness and tingling when the pain at its worst. Uses cane for gait, uses in right hand. Symptoms worsened after chemotherapy. Prior Treatments and Tests esophageal cancer. Has appointment tomorrow with oncologist. Hernia may be due to prior surgery for feeding tube. Undergoing chemo, 3 wks ago finished radiation. Lumbar spine x-ray 01/25/20: Mild to moderate degenerative disc disease as discussed without subluxation or trauma. Spinal or foraminal stenosis is not found. Future Testing and Treatments Planned oncologist tomorrow. Treatment Goals Patient/Caregiver Goals decrease pain, eliminate falls Prior Functional Status Baseline Function- ADL's Independent Baseline Function- Mobility Independent Baseline Function- Gait no device Baseline Function- Recreation/Hobbies fishing and crabbing; able Current Functional Impairments (Reported) Functional Limitations- ADL's painful, modified Functional Limitations- Mobility/Gait limited due to pain and fear of falling Functional Limitations- Recreation/ unable to go fishing or Hobbies crabbing PT-OP-C Subjective Start: 07/02/20 12:11 Freq: Status: Active Protocol: Document 09/19/20 13:01 SAK (Rec: 09/19/20 13:20 [facility] [id number]) OP-PT Subjective Patient Comments Patient Comments Reports PT doesn't seem to be helping anymore, limited to walking half a block. No relief of pain. Agreeable to place PT on hold at this time, return to his doctor. PT-OP-G Mobility & Gait Start: 07/02/20 12:11 Freq: Status: Active Protocol: Document 07/02/20 13:00 [facility] (Rec: 07/04/20 09:41 [facility] [id number]) OP Gait Assessment Gait Gait Assistance Required: Independent Assistive Devices Assistive Device Straight Cane Orthotic/Prosthetic Devices or Brace: No Gait Deviations General Gait Pattern Antalgic,Decreased Stride Length,Decreased Feet Clearance,Flexed Trunk,Wide Based Gait Factors Limiting Gait Function Factors Limiting Gait Function Decreased Strength,Pain PT-OP-J Posture/Palpation/Skin Start: 07/02/20 12:11 Freq: Status: Active Protocol: Document 07/02/20 13:00 [facility] (Rec: 07/04/20 09:41 [facility] [id number]) Posture Evaluation Position Standing Head/C-Spine Posture Forward Head T-Spine Posture Increased Kyphosis L-Spine Posture Flattened Pelvis Posture Posterior Tilted Weight Distribution Weight Shifted Right Hip Posture (L) Externally Rotated,(R) Externally Rotated Knee Posture (L) Excess Flexion,(R) Excess Flexion Ankle/Foot Posture (L) Forefoot Eversion,(R) Forefoot Eversion Palpation Assessment Location lumbar spine Palpation Location saad l/s left greater than right Palpation Findings Tenderness left LE Palpation Location throughout thigh anterior andposterior Palpation Findings Tenderness Skin Assessment Other Assessments Skin Assessment Comments skin intact, no edema, no increase in warmth PT-OP-K Range of Motion Start: 07/02/20 12:11 Freq: Status: Active Protocol: Document 07/02/20 13:00 [facility] (Rec: 07/04/20 09:41 [facility] [id number]) Lumbar Spine Range of Motion Lumbar Spine Active Testing Position Standing ROM Limitations Pain Comments moderate decrease all motions. Hip Goniometric Range of Motion Hip saad Hip ROM WFL Yes PT-OP-T Assessment and Plan Start: 07/02/20 12:11 Freq: Status: Active Protocol: Document 11/01/20 11:43 [facility] (Rec: 11/01/20 11:43 SAK [id number]) Physical Therapy Plan Discharge Physical Therapy Discharge Reasons Plateau in Progress
== END 2020-11-09 12:01 ==
LOC: PHYS 13:00
PROVIDERS: PCP Student in an Organized Health Care Education/Training Program; Referring Provider Student in an Organized Health Care Education/Training Program; Visit Provider Student in an Organized Health Care Education/Training Program
DX: M54.30 Sciatica, unspecified side (principal); R53.1 Weakness; Z91.81 History of falling
CPT/HCPCS: 97010; 97014; 97110; 97140; 97162; 97535; G0283

== ENCOUNTER 2021-01-15 14:54 | Emergency (ER) | payer MEDICARE, SELFPAY ==
[2021-01-15] VITALS (7 sets, daily range): BP systolic 112–156; BP diastolic 69–83; PULSE 64–79; RESP 16–21; TEMP 35.8; O2SAT 95–99
[2021-01-15] MEDS: LIDOCAINE 1% (PF) 2 ML INJ (16:31)
[2021-01-15] MEDS: SODIUM CHLORIDE 0.9% 1,000 ML 250 ML IV (16:50)
[2021-01-15 16:56] LABS: Add Manual Diff / Slide Review NO; Basophils Absolute Auto 0 /uL (0-100); Eosinophils Absolute Auto 100 /uL (0-450); Eosinophils Percent Auto 1.7 % (2-4); Hematocrit 32.2 % (41-53); Hemoglobin 10.6 g/dL (13.5-17.5); Lymphocytes Absolute Auto 700 /uL (1100-4500); Lymphocytes Percent Auto 17.7 % (25-40); Mean Corpuscular Hemoglobin 30.7 PG (26-34); Mean Corpuscular Volume 93.3 fL (80-100); Monocytes Absolute Auto 500 /uL (0-900); Monocytes Percent Auto 11.4 % (3-14); Neutrophils Absolute Auto 2700 /uL (1500-7000); Neutrophils Percent Auto 68.2 % (50-75); Platelet Count 111 X10^3/uL (150-400); Red Blood Cell Count 3.45 X10^6/uL (4.5-5.9); Red Cell Distribution Width 24.8 % (11.6-14.8)
--- NOTE | 2021-01-15 16:57 | PC.NURSE ---
port access per protocol with lidocane used. 0.75in 30g. Patient tolerated placment well. no complications. covered with opsite dressing
--- NOTE | 2021-01-15 16:58 | PC.NURSE ---
patient states he cannot take any po intake without immediatley vomiting up whatever goes in. concerned for stricture or obstruction. Esophogeal cancer patient, sent by PCP
[2021-01-15 17:02] LABS: INR 1.1 (0.9-1.3); Prothrombin Time 13.2 SECONDS (10.1-12.7)
[2021-01-15 17:05] LABS: PTT Partial Thromboplastin Tim 38 SECONDS (26.4-36.2)
[2021-01-15 17:12] LABS: COVID19 -Nasal RAPID Negative (Negative)
[2021-01-15 17:14] LABS: Alanine Aminotransferase 25 IU/L (<50); Albumin 3.7 g/dL (3.5-5.0); Albumin Globulin Ratio 1.1 (1.0-2.8); Alkaline Phosphatase 274 U/L (38-126); Aspartate Aminotransferase 39 IU/L (17-59); BUN Creatinine Ratio 40.8 (6-22); Bilirubin Total 0.6 mg/dL (0.2-1.3); Blood Urea Nitrogen 20 mg/dL (9-20); Calcium 9.2 mg/dL (8.4-10.2); Carbon Dioxide 29 mmol/L (22-32); Chloride 101 mmol/L (98-107); Estimated Glomerular Filt Rate > 60.0 mL/min (>60); Globulin 3.3 g/dL (1.7-4.1); Glucose 103 mg/dL (80-110); HEMOLYSIS < 15 (0-50); Lipase 12 U/L (23-300); Potassium 3.3 mmol/L (3.4-5.1); Sodium 135 mmol/L (137-145)
[2021-01-15 17:16] LABS: Anisocytosis 2+; Macrocytosis 1+; Schistocytes 1+
--- NOTE | 2021-01-15 17:51 | DI.CT.S_ITS ---
PROCEDURE: CT CHEST ABD PEL W CON INDICATIONS: Esophageal CA, unable to tolerate liquids / ? obstruction TECHNIQUE: After the administration of intravenous contrast, 5 mm thick sections acquired from the lung apices to the symphysis. 2.5 mm thick coronal and sagittal reformats were acquired. Additional 7 mm thick coronal maximum intensity projection (MIP) reformats acquired through the lungs. Optional 10-minute delayed imaging may be performed from the kidneys to the bladder. For radiation dose reduction, the following was used: automated exposure control, adjustment of mA and/or kV according to patient size. COMPARISON: [facility], CT, CT CHEST ABDOMEN PELVIS WITH CONTRAST, 12/26/2020, 14:51. FINDINGS: Image quality: Excellent. CHEST: The lungs have centrilobular emphysematous changes. There is bibasilar atelectasis. A nodule in the right middle lobe is unchanged compared to the prior CT. No pneumothorax or pleural effusion. Mediastinum: Heart size is normal. The coronary arteries have atherosclerotic calcifications. No pericardial effusion. No mediastinal or hilar adenopathy by size criteria. Thoracic aorta and central pulmonary arteries are normal in size. Scattered vascular calcifications seen in the aorta. Esophagus is fluid-filled distally. Chest wall: No axillary or supraclavicular adenopathy by size criteria. Thyroid is grossly unremarkable ABDOMEN: Ill-defined hypoattenuating 6.1 x 6.6 cm mass within the right hepatic lobe, unchanged compared to 12/26/2020. The gallbladder is normal. No intrahepatic biliary ductal dilatation. The left kidney is severely atrophic. The right kidney has a normal appearance with no calculus or hydronephrosis. The distal esophagus contains fluid and has circumferential wall thickening consistent with known esophageal carcinoma. The stomach, small bowel, and large bowel have a normal caliber. There is increased stool in the large bowel consistent with constipation. Nodes and vessels: No retroperitoneal or mesenteric adenopathy by size criteria. Infrarenal abdominal aortic aneurysm measuring 3.3 x 3.2 cm, with eccentric intraluminal thrombus. Severe aorta bi-iliac calcified atherosclerotic disease is seen severe stenosis in both proximal iliac arteries. PELVIS: Genitourinary: Bladder wall thickness is normal. Miscellaneous: No inguinal hernias or adenopathy. Bones: No suspicious bony lesions. No vertebral body compression fractures. Impression: 1. Thickening of the distal esophagus consistent with history of esophageal carcinoma. 2. Right hepatic mass consistent with metastasis. 3. Atrophic left kidney. 4. Severe atherosclerotic disease with an abdominal aortic aneurysm measuring 3.3 x 3.2 centimeters. 5. 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 6. Stable right middle lobe pulmonary nodule. 7. Constipation. 8. No evidence of bowel obstruction. Dictated by: Amor Jean M.D. on 01/15/2021 at 18:49 Approved by: Amor Jean M.D. on 01/15/2021 at 19:04
--- NOTE | 2021-01-15 19:37 | ED_ITS ---
HPI - Nausea/Vomiting/Diarrhea General Chief complaint: Nausea/Vomiting/Diarrhea Stated complaint: CANCER DR TOLD HIM TO GET HYDRATED Time Seen by Provider: 01/15/21 16:07 Source: patient Mode of arrival: Wheelchair Limitations: no limitations History of Present Illness HPI Narrative: Patient is a 70-year-old male who was reported to been told to come to the emergency department by his oncologist for IV hydration. 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 Initially was reported that the patient started having problems with swallowing about 10 days ago. He initially stated that 5 days ago he was unable to swallow solids and then 2 days ago started to have problems swallowing his pills and also liquids. He contacted his oncologist office to come to the emergency depar tment for fluid hydration. Related Data Home Medications Medication Instructions Recorded Confirmed tramadol 50 mg PO TID PRN 01/15/21 01/15/21 Previous Rx's Medication Instructions Recorded food supplemt, lactose-reduced 1 each PO TID #90 each 02/01/20 gabapentin 300 mg capsule 300 mg PO TID #90 cap 03/19/20 pantoprazole 40 mg tablet,delayed 40 mg PO DAILY #90 tab 11/05/20 release Allergies Allergy/AdvReac Type Severity Reaction Status Date / Time ibuprofen [IBUPROFEN] Allergy Unknown RASH/TINGLI Verified 01/15/21 15:26 NG Review of Systems Constitutional Constitutional: Denies chills, Denies fever(s) and Denies headache(s) Eyes Eyes: Denies change in vision ENT Ears, Nose, Mouth, and Throat: Reports dysphagia, Denies vertigo, Denies dizziness, Denies headache(s), Denies sore throat, Denies throat swelling and Denies tongue swelling Cardiovascular Cardiovascular: Denies chest pain and Denies dyspnea Respiratory Respiratory: Denies cough and Denies dyspnea Gastrointestinal Gastrointestinal: Denies abdominal pain, Denies change in bowel habits, Reports dysphagia, Reports dyspepsia, Denies nausea and Denies vomiting Genitourinary Genitourinary: Denies dysuria Genitourinary: Denies dysuria Musculoskeletal Musculoskeletal: Denies arthralgias and Denies myalgias Integumentary/Breasts Skin/Breast: Denies rash Neurologic Neurologic: Denies behavioral changes, Denies vertigo, Denies dizziness and Denies headache(s) Psychiatric Psychiatric: Denies behavioral changes Hematologic/Lymphatic On Anticoagulants: No Allergic/Immunologic Allergic/Immunologic: Denies urticaria, Denies throat swelling and Denies tongue swelling Patient History Medical History Chronic obstructive pulmonary disease (12/28/15) Congestive heart failure (12/28/15) Coronary artery disease involving [place] coronary artery of [place] heart without angina pectoris (12/28/15) Difficulty swallowing Essential hypertension (12/28/15) GERD (gastroesophageal reflux disease) Hydrocele Mixed hyperlipidemia (12/28/15) Surgical History History of heart artery stent Hx of CABG Social History Smoking Status: Current every day smoker alcohol intake: former Smoking Status: Current every day smoker tobacco type: cigarettes alcohol intake frequency: 0-2 drinks per day Substance Use Type: marijuana Exam Initial Vital Signs Initial Vital Signs: Vital Signs Temperature 96.5 F L 01/15/21 14:57 Pulse Rate 79 01/15/21 14:57 Respiratory Rate 20 01/15/21 14:57 Blood Pressure 145/83 H 01/15/21 14:57 Pulse Oximetry 99 01/15/21 14:57 Const General: cooperative and comfortable Limitations: mental status not altered HENMT Head: normal to inspection and normocephalic Resp Effort & Inspection: normal respiratory effort Auscultation: clear to auscultation bilaterally Cardio Rate: regular rate Rhythm: regular rhythm GI Inspection: non-distended Palpation: soft Other: Incisional hernia midline abdomen which he states occurred after his feeding tube was removed. Also has other scars on his abdomen consistent with feeding tube placement Skin Other: Abdominal wall scars consistent with feeding tube placement Neuro General: patient alert, patient awake and patient oriented x3 Cognition: normal cognition Speech: speech normal Extrem General: capillary refill normal Psych Appearance: grossly normal Scores GCS Nicolas coma scale eye opening: Spontaneous Nicolas coma scale verbal response: Orientated Nicolas coma scale motor response: Obey commands [place] coma scale total score: 15 Course Orders Ordered: ED Orders 01/15/21 16:45 Complete Blood Count AUTO DIFF Stat Comprehensive Metabolic Panel Stat Lipase Stat Partial Thromboplastin Time Stat Prothrombin Time INR Stat 01/15/21 16:53 COVID19 Stat 01/15/21 17:51 CT chest abd pel w con Stat 01/15/21 21:49 Urinalysis and Microscopic Stat Discontinued Medications Sodium Chloride (Normal Saline 0.9%) 1,000 mls @ 250 mls/hr IV BOLUS ONE Stop: 01/15/21 19:26 Last Infusion: 01/15/21 21:00 Dose: 0 mls/hr Documented by: Admin: 01/15/21 16:50 Dose: 250 mls/hr Documented by: RAYMOND Sodium Chloride (Normal Saline 0.9%) 1,000 mls @ 125 mls/hr IV CONT KATH Last Infusion: 01/15/21 23:52 Dose: 0 mls/hr Documented by: Admin: 01/15/21 22:32 Dose: 125 mls/hr Documented by: ZOE Lidocaine HCl (Lidocaine 1% (Pf)) 2 ml INJ NOW ONE Stop: 01/15/21 16:26 Last Admin: 01/15/21 16:31 Dose: 2 ml Documented by: RAYMOND Pantoprazole Sodium (Pantoprazole 40 Mg Vial) 40 mg IV NOW ONE Stop: 01/15/21 22:42 Last Admin: 01/15/21 22:57 Dose: 40 mg Documented by: ZOE Vital Signs Vital signs: Vital Signs - 8 hr 01/15/21 19:21 01/15/21 19:53 01/15/21 20:00 Pulse Rate 64 65 66 Respiratory Rate 20 Blood Pressure 112/69 Pulse Oximetry 97 97 96 01/15/21 20:30 01/15/21 22:35 01/15/21 23:54 Pulse Rate 67 72 76 Respiratory Rate 16 18 21 Blood Pressure 156/72 H 149/70 H Pulse Oximetry 95 95 96 MDM - Nausea/Vomiting/Diarrhea Lab Data Attestation: I reviewed the patient's lab results. Result diagrams: 01/15/21 16:45 01/15/21 16:45 Labs: Lab Results 01/15/21 01/15/21 01/15/21 Range/Units 16:45 16:45 16:45 WBC 4.0 L (4.5-11.0) X10^3/uL RBC 3.45 L (4.5-5.9) X10^6/uL Hgb 10.6 L (13.5-17.5) g/dL Hct 32.2 L (41-53) % MCV 93.3 (80-100) fL MCH 30.7 (26-34) PG MCHC 33.0 (30-36) % RDW 24.8 H (11.6-14.8) % Plt Count 111 L (150-400) X10^3/uL Neut % (Auto) 68.2 (50-75) % Lymph % (Auto) 17.7 L (25-40) % [place] % (Auto) 11.4 (3-14) % Eos % (Auto) 1.7 L (2-4) % Baso % (Auto) 1.0 (0-2) % Neut # (Auto) 2700 (4794-3012) /uL Lymph # (Auto) 700 L (7892-6234) /uL [place] # (Auto) 500 (0-900) /uL Eos # (Auto) 100 (0-450) /uL Baso # (Auto) 0 (0-100) /uL RBC Morphology See below Anisocytosis 2+ H Macrocytosis 1+ H Schistocytes 1+ H PT 13.2 H (10.1-12.7) SECONDS INR 1.1 (0.9-1.3) APTT 38 H D (26.4-36.2) SECONDS Sodium 135 L (137-145) mmol/L Potassium 3.3 L (3.4-5.1) mmol/L Chloride 101 (98-107) mmol/L Carbon Dioxide 29 (22-32) mmol/L BUN 20 (9-20) mg/dL Creatinine 0.49 L (0.66-1.25) mg/dL Estimated GFR > 60.0 (>60) mL/min BUN/Creatinine Ratio 40.8 H (6-22) Glucose 103 (80-110) mg/dL Calcium 9.2 (8.4-10.2) mg/dL Total Bilirubin 0.6 (0.2-1.3) mg/dL AST 39 (17-59) IU/L ALT 25 (<50) IU/L Alkaline Phosphatase 274 H (38-126) U/L Total Protein 7.0 (6.3-8.2) g/dL Albumin 3.7 (3.5-5.0) g/dL Globulin 3.3 (1.7-4.1) g/dL Albumin/Globulin Ratio 1.1 (1.0-2.8) Lipase 12 L (23-300) U/L Urine Color Urine Appearance Urine pH (4.5-8.0) Ur Specific [place] (1.000-1.035) Urine Protein (Negative) Urine Glucose (UA) (Negative) g/dL Urine Ketones (NEGATIVE) Urine Occult Blood (Negative) Urine Nitrate (Negative) Urine Bilirubin (NEGATIVE) Urine Urobilinogen (0.2) E.U./dL Ur Leukocyte Esterase (NEGATIVE) Urine RBC (0-5/HPF) Urine WBC (0-5/HPF) Ur Squamous Epith Cells (0-5/HPF) Urine Bacteria (None) Ur Culture Indicated? SARS-CoV-2 (PCR) (Negative) 01/15/21 01/15/21 Range/Units 16:53 21:45 WBC (4.5-11.0) X10^3/uL RBC (4.5-5.9) X10^6/uL Hgb (13.5-17.5) g/dL Hct (41-53) % MCV (80-100) fL MCH (26-34) PG MCHC (30-36) % RDW (11.6-14.8) % Plt Count (150-400) X10^3/uL Neut % (Auto) (50-75) % Lymph % (Auto) (25-40) % [place] % (Auto) (3-14) % Eos % (Auto) (2-4) % Baso % (Auto) (0-2) % Neut # (Auto) (6991-5684) /uL Lymph # (Auto) (6714-9347) /uL [place] # (Auto) (0-900) /uL Eos # (Auto) (0-450) /uL Baso # (Auto) (0-100) /uL RBC Morphology Anisocytosis Macrocytosis Schistocytes PT (10.1-12.7) SECONDS INR (0.9-1.3) APTT (26.4-36.2) SECONDS Sodium (137-145) mmol/L Potassium (3.4-5.1) mmol/L Chloride (98-107) mmol/L Carbon Dioxide (22-32) mmol/L BUN (9-20) mg/dL Creatinine (0.66-1.25) mg/dL Estimated GFR (>60) mL/min BUN/Creatinine Ratio (6-22) Glucose (80-110) mg/dL Calcium (8.4-10.2) mg/dL Total Bilirubin (0.2-1.3) mg/dL AST (17-59) IU/L ALT (<50) IU/L Alkaline Phosphatase (38-126) U/L Total Protein (6.3-8.2) g/dL Albumin (3.5-5.0) g/dL Globulin (1.7-4.1) g/dL Albumin/Globulin Ratio (1.0-2.8) Lipase (23-300) U/L Urine Color Yellow Urine Appearance Clear Urine pH 6.5 (4.5-8.0) Ur Specific [place] 1.010 (1.000-1.035) Urine Protein Trace H (Negative) Urine Glucose (UA) Negative (Negative) g/dL Urine Ketones 1+ H (NEGATIVE) Urine Occult Blood Negative (Negative) Urine Nitrate Negative (Negative) Urine Bilirubin Negative (NEGATIVE) Urine Urobilinogen 2.0 H (0.2) E.U./dL Ur Leukocyte Esterase Negative (NEGATIVE) Urine RBC 0-1/hpf (0-5/HPF) Urine WBC 1-5/hpf (0-5/HPF) Ur Squamous Epith Cells 0-1 /hpf (0-5/HPF) Urine Bacteria None seen (None) Ur Culture Indicated? Cult not indicated SARS-CoV-2 (PCR) Negative (Negative) Imaging Data CT chest abdomen pelvis: Radiologist's Impression: [address] [id number] Scan ReportSigned Patient: Estiven Dean JMR#: [id number]: 2Acct:[id number]/Sex: 70 / MDate of Service: 01/15/21Loc: EDAccession Number: [id number] Procedure: CT chest abd pel w con Ordering Provider: Cecilia De Santiago D.O. PROCEDURE: CT CHEST ABD PEL W CON INDICATIONS: Esophageal CA, unable to tolerate liquids / ? obstruction TECHNIQUE: After the administration of intravenous contrast, 5 mm thick sections acquired from the lung apices to the symphysis. 2.5 mm thick coronal and sagittal reformats were acquired. Additional 7 mm thick coronal maximum intensity projection (MIP) reformats acquired through the lungs. Optional 10-minute delayed imaging may be performed from the kidneys to the bladder. For radiation dose reduction, the following was used: automated exposure control, adjustment of mA and/or kV according to patient size. COMPARISON: [facility], CT, CT CHEST ABDOMEN PELVIS WITH CONTRAST, 12/26/2020, 14:51. FINDINGS: Image quality: Excellent. CHEST: The lungs have centrilobular emphysematous changes. There is bibasilar atelectasis. A nodule in the right middle lobe is unchanged compared to the prior CT. No pneumothorax or pleural effusion. Mediastinum: Heart size is normal. The coronary arteries have atherosclerotic calcifications. No pericardial effusion. No mediastinal or hilar adenopathy by size criteria. Thoracic aorta and central pulmonary arteries are normal in size. Scattered vascular calcifications seen in the aorta. Esophagus is fluid-filled distally. Chest wall: No axillary or supraclavicular adenopathy by size criteria. Thyroid is grossly unremarkable ABDOMEN: Ill-defined hypoattenuating 6.1 x 6.6 cm mass within the right hepatic lobe, unchanged compared to 12/26/2020. The gallbladder is normal. No intrahepatic biliary ductal dilatation. The left kidney is severely atrophic. The right kidney has a no rmal appearance with no calculus or hydronephrosis. The distal esophagus contains fluid and has circumferential wall thickening consistent with known esophageal carcinoma. The stomach, small bowel, and large bowel have a normal caliber. There is increased stool in the large bowel consistent with constipation. Nodes and vessels: No retroperitoneal or mesenteric adenopathy by size criteria. Infrarenal abdominal aortic aneurysm measuring 3.3 x 3.2 cm, with eccentric intraluminal thrombus. Severe aorta bi-iliac calcified atherosclerotic disease is seen severe stenosis in both proximal iliac arteries. PELVIS: Genitourinary: Bladder wall thickness is normal. Miscellaneous: No inguinal hernias or adenopathy. Bones: No suspicious bony lesions. No vertebral body compression fractures. Impression: 1. Thickening of the distal esophagus consistent with history of esophageal carc inoma. 2. Right hepatic mass consistent with metastasis. 3. Atrophic left kidney. 4. Severe atherosclerotic disease with an abdominal aortic aneurysm measuring 3.3 x 3.2 centimeters. 5. 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 6. Stable right middle lobe pulmonary nodule. 7. Constipation. 8. No evidence of bowel obstruction. Dictated by: Amor Jean M.D. on 01/15/2021 at 18:49 Approved by: Amor Jean M.D. on 01/15/2021 at 19:04 MDM Narrative Medical decision making narrative: Patient initially Reported that he had not had any solid foods for the past 5 days and has not had any liquids for the past 2 days. Clinically he was not dehydrated. Was not tachycardic. Was not hypotensive. His BUN and creatinine were relatively unremarkable. CT scan did show thickening of his distal esophagus and metastasis to his liver which he knew about. I discussed the case with General surgery here at this hospital who stated that the patient most likely would need an esophageal stent placement and we would be unable to do that here. I then discussed the case with hospitalist at [facility] where the patient's oncologist dislocated who asked that I talk with the cat scanner operator at their facility. I then talked with the cat scanner operator who stated that the patient is most likely going to need stent placement and they were unable to do that at their facility. I then discussed the case with the hospitalist at [facility] in [place] who stated that they would be happy to take the patient but they would like me to talk to the cat scanner operator. I then talked with the cat scanner operator at that facility who stated that he would not recommend stent placement for any long-term treatment of the patient's issues. He would recommend that the patient have a G-tube placed. He did state that he would be happy to consult with the patient upon arrival at their facility however this is what he would most likely recommend. And then had another discussion with the hospitalist at [facility] who stated that if it was a G-tube that was going to be recommended by Gastroenterology that potentially sending the patient back to [facility] where his oncologist is located would be better for the patient given the fact that [facility] does have Interventional Radiology and General surgery to place a G-tube. I then went and had a discussion with the patient regarding this. The patient was fairly adamant that he did not want another G-tube placed. He stated that the last G tube that he had cause quite a bit irritation at the skin. It was removed when the patient was able to tolerate oral intake which he states was meal supplements such as Ensure. Had a long discussion with patient regarding this. Informed him that if he was unable to tolerate any solids or liquids that a so me intervention needed to happen or else he was going to be here in the emergency department again for continued issues. He expressed understanding of this. He questioned if the IV fluids that he was receiving would ?relax ?the esophagus. Informed him than receiving IV fluids would be unlikely to cause this. He stated that he was told to come to the emergency department by his oncologist ?just for hydration ?this discussion progressed and he stated that he was able to eat chili yesterday. I questioned him about this stating that he initially told us that he had not had any solid foods to eat for the past 5 days. He then stated that he did state that it was his case reviewer that stated that. He states that he had his swallowing issues are not necessarily new. He goes through periods of time when he is able to eat foods such as hamburgers but then has periods of time when he has difficulty even tolerating the meal supplements. He states he is supposed to be having meal supplements 3 times a a day but usually only takes them twice a day. He stated that he thought his case reviewer became concerned about his inability to tolerate his normal diet and made phone calls to his oncologist and that is how he ended up here in the ER. Known asked him if he felt like he could eat something here in the ER he thought that he could. He did tolerate pudding here in the ER without any problems. This he was able to tolerate this I feel that he can tolerate liquids and also meal supplements if needed and also lessens the necessity to transfer the patient for procedural intervention. Patient agreed with his someone like to go home. Informed him that he needs to contact his oncologist tomorrow to did discuss his visit here in the ER. He was given return precautions. He expressed understanding and agreement. Discharge Plan Departure Patient Disposition: Home Clinical Impression: Esophageal cancer, Dysphagia Instructions: Esophageal Dysphagia Activity Restrictions/Additional Instructions: I do recommend that you increase your fluid intake and be sure to continue to drink the Ensure as prescribed by your oncologist. I recommend that you contact your oncologist office tomorrow for a follow-up. Return to the emergency department for any new or worsening symptoms. Continue all of your medications as directed Prescriptions: No Action gabapentin 300 mg capsule 300 mg PO TID Qty: 90 RF: 5 pantoprazole 40 mg tablet,delayed release (DR/EC) 40 mg PO DAILY Qty: 90 RF: 3 Ensure Original Liquid 1 each PO TID Qty: 90 RF: 11 tramadol 50 mg tablet 50 mg PO TID PRN (Reason: Pain (Scale Score 4-6)) RF: 0 Referrals: Navi Emmanuel MD [Primary Care Provider] -
[2021-01-15 21:53] LABS: Bacteria Urine None Seen
[2021-01-15 21:54] LABS: Appearance Urine UA CLEAR; Bilirubin Urine UA NEGATIVE (NEGATIVE); Color Urine UA YELLOW; Glucose Urine UA NEGATIVE (Negative); Ketones Urine UA 1+ (NEGATIVE); Leukocyte Esterase Urine UA NEGATIVE (NEGATIVE); Nitrite Urine UA NEGATIVE (Negative); Occult Blood Urine UA NEGATIVE (Negative); Protein Urine UA TRACE (Negative); pH Urine UA 6.5 (4.5-8.0)
[2021-01-15 22:03] LABS: Culture Indicated Urine Cult Not Indicated; RBC Urine 0-1/HPF (0-5/HPF); Squamous Epithelial Cell Urine 0-1 /HPF (0-5/HPF); WBC Urine 1-5/HPF (0-5/HPF)
[2021-01-15] MEDS: SODIUM CHLORIDE 0.9% 1,000 ML 125 ML IV (22:32)
[2021-01-15] MEDS: PANTOPRAZOLE 40 MG VIAL IV (22:57)
--- NOTE | 2021-01-15 23:23 | PC.NURSE ---
Ate 4 ounces of pudding without difficulty.
== END 2021-01-15 23:50 | disposition home or self-care (01) ==
PROVIDERS: Emergency Medicine; Emergency Provider Emergency Medicine; PCP Student in an Organized Health Care Education/Training Program
DX: C15.9 Malignant neoplasm of esophagus, unspecified (principal); C78.7 Secondary malignant neoplasm of liver and intrahepatic bile duct; R13.10 Dysphagia, unspecified; R10.13 Epigastric pain; I25.10 Atherosclerotic heart disease of native coronary artery without angina pectoris; E78.5 Hyperlipidemia, unspecified; I10 Essential (primary) hypertension; Z95.5 Presence of coronary angioplasty implant and graft; Z20.822 Contact with and (suspected) exposure to COVID-19
CPT/HCPCS: 36415; 71260; 74177; 80053; 81001; 83690; 85025; 85610; 85730; 87635; 96361; 96374; 99283; 99284; C9803; C9113; J1642; Q9967

== ENCOUNTER → 2021-02-13 09:04 | Outpatient (CLI) | payer MEDICARE, SELFPAY ==
[2021-02-13] MEDS: COVID-19 VACC #1, MRNA(MOD) 100 MCG/0.5 ML VIAL IM (09:18)
== END ==
PROVIDERS: PCP Student in an Organized Health Care Education/Training Program; Visit Provider Internal Medicine
DX: Z23 Encounter for immunization (principal)
CPT/HCPCS: 0011A; 91301

== ENCOUNTER → 2021-03-13 08:57 | Outpatient (CLI) | payer MEDICARE, SELFPAY ==
[2021-03-13] MEDS: COVID-19 VACC #2, MRNA(MOD) 100 MCG/0.5 ML VIAL IM (09:03)
== END ==
PROVIDERS: PCP Student in an Organized Health Care Education/Training Program; Visit Provider Internal Medicine
DX: Z23 Encounter for immunization (principal)
CPT/HCPCS: 0012A; 91301

== ENCOUNTER 2021-04-10 10:25 | Emergency (ER) | payer MEDICARE, SELFPAY ==
--- NOTE | 2021-04-10 10:28 | ED_ITS ---
HPI - General Adult General Chief complaint: Recheck/Abnormal Lab/Rx Stated complaint: Feeding tube fell out today Time Seen by Provider: 04/10/21 10:27 Source: patient and family Mode of arrival: Ambulatory Limitations: no limitations History of Present Illness HPI narrative: 70-year-old male former smoker with a history of GERD, hypertension, esophageal cancer and malnutrition presents with his in the chief complaint of accidental dislodgement of his G-tube which was placed 5 weeks ago at [facility]. He is having no pain and was able to use it successfully this morning. He states that it has been out for about 1 hour prior to his arrival. He has had no fever chills. He has not had it, before. He is otherwise well and free of complaint. Onset (ago): hour(s) Location: abdomen Relieving factors: none Exacerbating factors: none Associated symptoms: denies other symptoms Related Data Home Medications Medication Instructions Recorded Confirmed tramadol 50 mg PO TID PRN 01/15/21 01/15/21 Previous Rx's Medication Instructions Recorded food supplemt, lactose-reduced 1 each PO TID #90 each 02/01/20 gabapentin 300 mg capsule 300 mg PO TID #90 cap 03/19/20 pantoprazole 40 mg tablet,delayed 40 mg PO DAILY #90 tab 11/05/20 release Allergies Allergy/AdvReac Type Severity Reaction Status Date / Time ibuprofen [IBUPROFEN] Allergy Unknown RASH/TINGLI Verified 01/15/21 15:26 NG Review of Systems Constitutional Constitutional: Denies chills, Denies fatigue, Denies fever(s), Denies frequent falls, Denies lethargy and Denies weakness Eyes Eyes: Denies change in vision, Denies eye discharge, Denies irritation and Denies loss of vision ENT Ears, Nose, Mouth, and Throat: Denies change in voice, Denies dizziness, Denies neck pain, Denies sore throat and Denies throat swelling Cardiovascular Cardiovascular: Denies chest pain, Denies irregular heart rhythm, Denies lightheadedness, Denies palpitations, Denies dyspnea, Denies dyspnea on exertion and Denies orthopnea Respiratory Respiratory: Denies cough, Denies dyspnea, Denies dyspnea on exertion and Denies wheezing Gastrointestinal Gastrointestinal: Denies abdominal pain, Denies change in bowel habits, Denies diarrhea, Denies nausea and Denies vomiting Comments: PEG tube dislodged Musculoskeletal Musculoskeletal: Denies neck pain and Denies numbness Integumentary/Breasts Skin/Breast: Denies pruritus, Denies erythema, Denies rash and Denies wounds Neurologic Neurologic: Denies behavioral changes, Denies confusion, Denies dizziness, Denies frequent falls, Denies loss of vision, Denies numbness and Denies weakness Psychiatric Psychiatric: Denies anxiety, Denies behavioral changes, Denies confusion, Denies depression, Denies homicidal ideation and Denies suicidal ideation Endocrine Endocrine: Denies fatigue, Denies flushing and Denies palpitations Hematologic/Lymphatic Hematologic/Lymphatic: Denies easy bruising Allergic/Immunologic Allergic/Immunologic: Denies urticaria, Denies throat swelling and Denies wheezing Patient History Medical History Chronic obstructive pulmonary disease (12/28/15) Congestive heart failure (12/28/15) Coronary artery disease involving [place] coronary artery of [place] heart without angina pectoris (12/28/15) Difficulty swallowing Essential hypertension (12/28/15) GERD (gastroesophageal reflux disease) Hydrocele Mixed hyperlipidemia (12/28/15) Surgical History History of heart artery stent Hx of CABG Social History Smoking Status: Current every day smoker alcohol intake: former Smoking Status: Current every day smoker tobacco type: cigarettes alcohol intake frequency: 0-2 drinks per day Substance Use Type: marijuana Exam Narrative Exam Narrative: GEN: AOx3 and in mild distress, thin, chronically ill patient appears older than his stated age EYES: Pupils are equal, round, and reactive to light and accommodation. Extraoccular muscles are intact bilaterally. There is no subconjunctival h emorrhage or exudate. CHEST: Lungs are clear to auscultation bilaterally and free of wheezes, rales, or rhonchi. Heart rate is regular rhythm, there are no murmurs, clicks, rubs, or gallops. There is no chest wall tenderness. ABD: Abdomen is soft and nontender. There is no guarding or rebound. Bowel sounds are normal in all 4 quadrants. There is no mass or organomegaly. Feeding tube has been dislodged, held in place by only 1 suture and ostomy appears patent EXT: Full painless ROM of all extremities with no loss of sensation or strength. SKIN: Warm, pink, and dry. No erythema or rash Initial Vital Signs Initial Vital Signs: Vital Signs Temperature 97.2 F L 04/10/21 10:34 Pulse Rate 71 04/10/21 10:34 Respiratory Rate 18 04/10/21 10:34 Blood Pressure 155/72 H 04/10/21 10:34 Pulse Oximetry 98 04/10/21 10:34 Course Course Course Narrative: Patient is a very poor historian and neither he or his could tell me what kind of to this is and whether it was in the stomach or the jejunum. The tube was a 20 Tun[place]ian, initially I attempted to place an 18 Tun[place]ian Diego catheter but was unsuccessful as he was experiencing significant discomfort, a 16 Tunisian was easily advanced. I did not inflate the balloon until receiving the op report from [facility]. We were able to obtain records from [facility] and see that it was a PEG tube. Balloon was inflated, patient had no pain. X-ray obtained to confirm placement Orders Ordered: ED Orders 04/10/21 10:54 Wound Culture and Gram Stain Stat 04/10/21 11:28 XR abdomen min 2V Stat Vital Signs Vital signs: Vital Signs - 8 hr 04/10/21 10:34 04/10/21 11:54 04/10/21 12:05 Temperature 97.2 F L Pulse Rate 71 70 Respiratory Rate 18 16 16 Blood Pressure 155/72 H 193/81 H 145/63 H Pulse Oximetry 98 100 95 Discharge Plan Departure Patient Disposition: Home Clinical Impression: Complication of feeding tube Instructions: How to Use Your Feeding Tube Activity Restrictions/Additional Instructions: *You have been diagnosed with [peg tube problem] *What to do: *Please continue to take your regular medications as directed. [ ] New medication prescriptions sent to your pharmacy: [ ] [ ] New medication written as a paper prescription [ x] No new medications given *Return to Emergency Department if you should have any new, worsening or concerning symptoms, such as [fever greater than 101 F, shaking chills, worsening pain, persistent vomiting or other bothersome symptoms] Prescriptions: No Action gabapentin 300 mg capsule 300 mg PO TID Qty: 90 RF: 5 pantoprazole 40 mg tablet,delayed release (DR/EC) 40 mg PO DAILY Qty: 90 RF: 3 Ensure Original Liquid 1 each PO TID Qty: 90 RF: 11 tramadol 50 mg tablet 50 mg PO TID PRN (Reason: Pain (Scale Score 4-6)) RF: 0 Referrals: Navi Emmanuel MD [Primary Care Provider] -
[2021-04-10 10:34] VITALS: BP 155/72; PULSE 71; RESP 18; TEMP 36.2; O2SAT 98; BMI 18.6
--- NOTE | 2021-04-10 10:48 | PC.NURSE ---
gastric tube placed [address] Kramer office ([place]). secured with 2 sutures. pt arrives today with complaint of gastric tube pulled out skin around tube appears red, inflamed. Serosanguanious and purulent drainage. Dr Rodney placed 16F coude high cath in gastric opening to keep tract patent. NAD. records pending from Dr Kramer office.
--- NOTE | 2021-04-10 11:28 | DI.RAD.S_ITS ---
PROCEDURE: XR ABDOMEN MIN 2V INDICATIONS: G tube placement TECHNIQUE: 2 views of the abdomen were acquired. COMPARISON: None. FINDINGS: Surgical changes and devices: None. Bowel: No pneumoperitoneum. The bowel gas pattern is nonspecific. Soft tissues: No masses; visualized solid organ contours appear normal in size. No suspicious abdominal calcifications. Bones: No suspicious bony abnormalities. IMPRESSION: Currently the large and small bowel do not appeared dilated. Reportedly a gastrostomy tube has been placed. There appears to be a small amount of free air within the peritoneal space on the lateral projection anteriorly, a definite gastrostomy tube is not seen. Dictated by: Edvin Camilo M.D. on 04/10/2021 at 11:56 Approved by: Edvin Camilo M.D. on 04/10/2021 at 11:58
[2021-04-10 11:54] VITALS: BP 193/81; RESP 16; O2SAT 100
[2021-04-10 12:05] VITALS: BP 145/63; PULSE 70; RESP 16; O2SAT 95
== END 2021-04-10 12:13 | disposition home or self-care (01) ==
PROVIDERS: Emergency Provider Emergency Medicine; PCP Student in an Organized Health Care Education/Training Program
DX: K94.20 Gastrostomy complication, unspecified (principal)
CPT/HCPCS: 74019; 87070; 87077; 87147; 87205; 99283